=== PATIENT | female | born 1965 | race Caucasian/White ===

== ENCOUNTER → 2017-06-02 | Outpatient (CLI) | payer OTHER ==
--- NOTE | 2017-06-02 08:25 | Diagnostic Imaging Report ---
PROCEDURE:US ABDOMEN LIMITED COMPARISON:None. INDICATIONS:Abnormality of red blood cells. TECHNIQUE: Mcdonald scale color Doppler ultrasound. FINDINGS: Right liver span 15.6 cm. Diffusely increased and coarsened echotexture with a smooth margin. Portal vein diameter 1 cm; normal flow direction. Spleen: 10.8 x 2.9 x 4.3 cm (71 mL). Normal-appearing. CONCLUSION: 1. Normal spleen. 2. Diffusely increased liver echogenicity most commonly secondary to steatosis. Dictated by: Ceasar Coy M.D. on 06/02/2017 at 8:33 Electronically approved by: Ceasar Coy M.D. on 06/02/2017 at 8:33
== END ==
LOC: US 07:28
PROVIDERS: ATTEND Family Medicine
DX: R71.8 Other abnormality of red blood cells (principal)
CPT/HCPCS: 76705

== ENCOUNTER 2018-01-01 21:18 | Observation (INO) | payer OTHER ==
[~2018-01-01] VITALS: Ht 162.6 cm; Wt 70.3 kg
[2018-01-01] MEDS ORDERED: SODIUM CHLORIDE 0.9% 1000ML 1,000 ML IV ONE (22:00)
[2018-01-02] VITALS (8 sets, daily range): BP systolic 135–181; BP diastolic 63–89
[2018-01-02] MEDS ORDERED: SODIUM CHLORIDE 0.9% 1000ML 1,000 ML IV STA
--- NOTE | 2018-01-02 00:47 | Diagnostic Imaging Report ---
CXR 1 [facility], 01/01/2018 12:00 AM Technique: CXR 1 [facility] Comparison: None available. Clinical history: Vomiting, diarrhea, confusion Findings: Normal cardiomediastinal silhouette for technique. Mild linear bibasilar opacities, likely atelectasis or scarring. No consolidation, effusion or pneumothorax. Impression: 1. Lines/Tubes: None 2. No acute abnormality. Signed by: Dr Beverley Ramirez MD on 01/02/2018 12:44 AM
--- NOTE | 2018-01-02 00:53 | Diagnostic Imaging Report ---
Images made available for interpretation on 01/02/2018 at 12:45 AM. EXAMINATION: Head CT HISTORY: Confusion, now nausea and vomiting COMPARISON: None. TECHNIQUE: Multidetector axial images were obtained without contrast from the foramen magnum to the vertex . The images were reconstructed using brain and bone algorithms. Thin section brain images were reformatted into coronal and sagittal planes. Image quality: Motion/streaking artifact from metallic earrings limits the evaluation of the skull base and posterior cranial fossa. Dose modulation, iterative reconstruction, and/or weight based adjustment of the mA/kV was utilized to reduce the radiation dose to as low as reasonably achievable. FINDINGS: Parenchyma: 1. No abnormal densities. 2. No mass or hemorrhage. No CT evidence of acute territorial vascular insult. Extra-axial spaces:No abnormal density. No extra-axial fluid collections Brain volume: Normal for age. Ventricles: No hydrocephalus or displacement. Arteries: No density suggestive of thrombus. Dural sinuses: No abnormal density. Extra-axial spaces: No abnormal density. Foramen magnum: No mass, Chiari malformation, or basilar invagination. Sella: No obvious mass. Paranasal/mastoid sinuses: Imaged portions unremarkable. Skull/Scalp: No lytic or blastic lesions. No fractures. IMPRESSION: Normal head CT. Signed by: Dr. Nadja Barrios M.D. on 01/02/2018 12:49 AM
[2018-01-02] MEDS ORDERED: ONDANSETRON HCL INJ 2 MG/ML VIAL IV PRN (01:15)
[2018-01-02] MEDS ORDERED: DEXTROSE 50% SYRINGE 50 ML IV PRN (01:15)
[2018-01-02] MEDS: SODIUM CHLORIDE 0.9% 1000ML 1,000 ML IV SCH ×4 (02:00→21:06)
[2018-01-02] MEDS: INSULIN REGULAR, HUMAN 100 UNIT/1 ML 3ML VIAL SQ SCH ×4 (11:30→20:36)
--- NOTE | 2018-01-02 20:24 | History and Physical ---
HISTORY OF PRESENT ILLNESS: This 52-year-old female comes in with nausea and vomiting. She has a history of diabetes mellitus, history of hypertension. She was in her usual state of health until a day prior to admission. The patient started to have intractable nausea and vomiting and the patient was feeling dehydrated and felt very weak and came to the emergency room. She was admitted for intractable nausea and vomiting. PAST MEDICAL HISTORY: History of diabetes mellitus, seen by her director of occupational therapy, ____, and also history of hypertension. HOME MEDICATIONS: Not known at this time. The patient is on insulin apparently and also blood pressure medicine. 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 PAST SURGICAL HISTORY: and appendectomy, otherwise normal. REVIEW OF SYSTEMS: Negative for chest pain. No shortness of breath. Positive for nausea and vomiting. No diarrhea. No constipation. No rectal bleeding. No hematochezia and no hematemesis. No diplopia. No blurry vision. SOCIAL HISTORY: No ETOH. No IV drug abuse. 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 PHYSICAL EXAMINATION VITAL SIGNS: Temperature 97.7, blood pressure 172/79. HEENT: Normocephalic, atraumatic. Pupils react to light and accommodation. CVS: S1 and S2 normal. Regular rate and rhythm. ABDOMEN: Nontender, nondistended. EXTREMITIES: No clubbing, no cyanosis, no edema. This patient also had confusion too because of nausea and vomiting. The patient's CT was done and showed normal head CT. Chest x-ray: Normal cardiomediastinal silhouette. LABORATORY DATA: Chemistry: Glucose 300. AST 300, ALT 140. Bicarb 23. Urine dip stick leukocyte negative, nitrite negative. CBC was normal. The patient also did blood cultures. Given one bolus of normal saline in the ER and started on normal saline at 100 mL per hour and was admitted to the hospital. The patient is feeling better now. Will continue with the fluids and also give her some diet. Will continue checking her labs. Will put her on some Reglan for her gastroparesis and will continue monitoring the patient. Further recommendations depending on clinical course. Will continue to monitor the patient. Job#: [id number]
[2018-01-02] MEDS: METOCLOPRAMIDE HCL 10 MG TAB PO SCH (20:36)
[2018-01-03] VITALS (7 sets, daily range): BP systolic 156–178; BP diastolic 79–88
[2018-01-03 05:20] LABS: BASOPHILS # (AUTO) 0.1 (0.0-0.1); BASOPHILS % 1.4 % (0.0-1.0); EOSINOPHILS # (AUTO) 0.1 (0.0-0.4); EOSINOPHILS % 1.6 % (0.0-6.0); HEMATOCRIT 40.6 % (34.2-44.1); HEMOGLOBIN 13.9 g/dL (12.0-16.0); LYMPHOCYTES # (AUTO) 1.2 (1.0-3.2); LYMPHOCYTES % 26.1 % (18.0-39.1); MEAN CORPUSCULAR HEMOGLOBIN 36.2 pg (28-32); MEAN CORPUSCULAR HGB CONC 34.2 g/dL (31-35); MEAN CORPUSCULAR VOLUME 105.7 fL (81-99); MONOCYTES # (AUTO) 0.4 (0.2-0.8); MONOCYTES % 9.8 % (4.4-11.3); NEUTROPHILS # (AUTO) 2.7 (2.1-6.9); NEUTROPHILS % 60.9 % (38.7-80.0); PLATELET COUNT 164 x10e3/uL (140-360); RED BLOOD COUNT 3.84 x10e6/uL (3.6-5.1); RED CELL DISTRIBUTION WIDTH 11.6 % (11.7-14.4)
[2018-01-03 05:41] LABS: ALANINE AMINOTRANSFERASE 107 IU/L (0-55); ALBUMIN 3.3 g/dL (3.5-5.0); ALBUMIN/GLOBULIN RATIO 1.1 (0.8-2.0); ALKALINE PHOSPHATASE 151 IU/L (40-150); ANION GAP 19.3 mmol/L (8-16); BLOOD UREA NITROGEN 6 mg/dL (7-26); BUN/CREATININE RATIO 10 (6-25); CALCIUM 9.3 mg/dL (8.4-10.2); CARBON DIOXIDE 18 mmol/L (22-29); CHLORIDE 102 mmol/L (98-107); EST GLOMERULAR FILTRATION RATE > 60 ML/MIN (60-); GLUCOSE 103 mg/dL (74-118); POTASSIUM 3.3 mmol/L (3.5-5.1); SODIUM 136 mmol/L (136-145)
[2018-01-03 07:00] LABS: BASOPHILS # (AUTO) 0.1 (0.0-0.1); EOSINOPHILS # (AUTO) 0.1 (0.0-0.4); EOSINOPHILS % 1.6 % (0.0-6.0); HEMATOCRIT 39.8 % (34.2-44.1); HEMOGLOBIN 13.9 g/dL (12.0-16.0); LYMPHOCYTES # (AUTO) 1.2 (1.0-3.2); LYMPHOCYTES % 24.8 % (18.0-39.1); MEAN CORPUSCULAR HEMOGLOBIN 36.8 pg (28-32); MEAN CORPUSCULAR HGB CONC 34.9 g/dL (31-35); MEAN CORPUSCULAR VOLUME 105.3 fL (81-99); MONOCYTES # (AUTO) 0.4 (0.2-0.8); MONOCYTES % 8.6 % (4.4-11.3); NEUTROPHILS # (AUTO) 3.2 (2.1-6.9); NEUTROPHILS % 63.8 % (38.7-80.0); PLATELET COUNT 159 x10e3/uL (140-360); RED BLOOD COUNT 3.78 x10e6/uL (3.6-5.1); RED CELL DISTRIBUTION WIDTH 11.6 % (11.7-14.4)
[2018-01-03] MEDS ORDERED: POTASSIUM CHLORIDE 20MEQ/100ML 200 ML IV ONE (07:00)
[2018-01-03] MEDS ORDERED: PIPER-TAZ 3.375 GM 50 ML IV ONE (07:30)
[2018-01-03] MEDS: INSULIN REGULAR, HUMAN 100 UNIT/1 ML 3ML VIAL SQ SCH ×4 (07:30→20:15)
[2018-01-03] MEDS ORDERED: LEVOFLOXACIN 500MG/D5W 100ML 100 ML IV SCH (07:45)
[2018-01-03] MEDS: METOCLOPRAMIDE HCL 10 MG TAB PO SCH ×4 (07:55→20:10)
[2018-01-03] MEDS: PANTOPRAZOLE SOD 40 MG TABEC PO SCH (07:55)
[2018-01-03] MEDS ORDERED: POTASSIUM CHLORIDE 10 MEQ TABCR PO NR (11:45)
[2018-01-03] MEDS ORDERED: METRONIDAZOLE 500MG/NS 100ML 100 ML IV SCH (12:00)
--- NOTE | 2018-01-03 12:06 | Diagnostic Imaging Report ---
EXAMINATION: CT of the abdomen and pelvis with contrast. TECHNIQUE: Spiral CT images of the abdomen and pelvis were performed from the lung bases to the lesser trochanters after the intravenous administration of 100 cc of Isovue 370 and the oral administration of water. Coronal and sagittal reformatted images were obtained. COMPARISON: None. CLINICAL HISTORY:ABDOMINAL ULTRASOUND 06/02/2017 DISCUSSION: ABDOMEN/PELVIS: LOWER THORAX:Multiple bilateral lower lobe, right middle lobe and lingular linear opacities, likely representing subsegmental atelectasis or scarring. Mild bilateral lower lobe atelectatic changes. HEPATOBILIARY: Liver size in the upper limit of normal. Moderate diffuse steatosis. No focal lesions. No intra or extrahepatic biliary ductal dilation. GALLBLADDER: Cholecystectomy clips. SPLEEN: No splenomegaly. PANCREAS: No focal masses or ductal dilatation. Marked diffuse pancreatic atrophy ADRENALS: No adrenal nodules. KIDNEYS/URETERS: No hydronephrosis, stones, or solid mass lesions. PELVIC ORGANS/BLADDER: Moderate to marked distention of the bladder. No wall thickening or focal lesions. No adnexal masses. PERITONEUM/RETROPERITONEUM: No free air or fluid. LYMPH NODES: No intra-abdominal, retroperitoneal, pelvic or inguinal lymphadenopathy. VESSELS: The celiac trunk,superior and inferior mesenteric and bilateral renal arteries are patent The portal, superior mesenteric and splenic veins are patent. GI TRACT: No bowel dilation or evidence of obstruction. No pericolonic inflammatory changes. Stomach is unremarkable. BONES AND SOFT TISSUE: Mild osteopenia. No aggressive lytic lesions. Fat-containing abdominal hernia. IMPRESSION: 1. Liver size in the upper limit of normal with moderate diffuse steatosis. No focal lesions. 2. Moderate to marked distention of the bladder. No focal lesions or wall thickening. Correlate for bladder outlet obstruction. 3. No bowel dilation or evidence of obstruction. 4. Bilateral lower lobe, right middle lobe and lingular subsegmental atelectasis or scarring. Signed by: Dr. Chandu Aguilar M.D. on 01/03/2018 12:03 PM
[2018-01-03] MEDS ORDERED: POTASSIUM CHLORIDE 20 MEQ TAB CR PO ONE (13:35)
[2018-01-03] MEDS ORDERED: SODIUM CHLORIDE 0.9% 50ML 50 ML ONE (16:22)
[2018-01-03] MEDS ORDERED: IOPAMIDOL 370 MG/ML 200 ML INFUS..BTL INJ ONE (16:22)
--- NOTE | 2018-01-03 19:12 | Diagnostic Imaging Report ---
EXAM: Complete Abdominal Ultrasound INDICATION: \S\ATTENTION GALL BLADDER COMPARISON: CT abdomen and pelvis 01/03/2018 TECHNIQUE: Transverse and longitudinal images of the upper abdomen were obtained. FINDINGS: Liver: Size: 14.0 cm in the right midclavicular line, normal Appearance: Increased echogenicity, smooth contour Mass: No focal masses Spleen: Size: 10.5 cm in length, normal Echogenicity: Normal Mass: No focal masses Gallbladder: Absent. Sonographic Robles's Sign: Negative Bile Ducts: Intrahepatic Ducts: No dilatation Extrahepatic Ducts: Common bile duct measures 0.6 cm, no dilatation Pancreas: Visualized portions of the neck and proximal body show atrophy. No focal lesions.. Kidneys: Length: Right 9.4 cm Left 10.4 cm Echogenicity: Normal Collecting System: No hydronephrosis Stone: None Cyst/Mass: None Vessels: Aorta: Visualized portions are normal Inferior Vena Cava: Visualized portions are normal Main Portal Vein: 1.0 cm, normal size with hepatopetal flow. Free Fluid: No ascites or pleural effusion IMPRESSION: 1. Diffuse hepatic steatosis. No focal lesions. 2. Pancreatic atrophy. No focal lesions. Signed by: Dr. Chandu Aguilar M.D. on 01/03/2018 7:09 PM
[2018-01-03] MEDS ORDERED: TEMAZEPAM 15 MG CAP PO ONE (21:00)
[2018-01-04 01:00] VITALS: BP 162/85
[2018-01-04 03:30] VITALS: BP 167/80
[2018-01-04 05:14] LABS: BASOPHILS % 1.1 % (0.0-1.0); EOSINOPHILS # (AUTO) 0.1 (0.0-0.4); EOSINOPHILS % 3.2 % (0.0-6.0); HEMATOCRIT 39.8 % (34.2-44.1); LYMPHOCYTES # (AUTO) 0.9 (1.0-3.2); LYMPHOCYTES % 24.8 % (18.0-39.1); MEAN CORPUSCULAR HEMOGLOBIN 36.6 pg (28-32); MEAN CORPUSCULAR HGB CONC 35.2 g/dL (31-35); MEAN CORPUSCULAR VOLUME 103.9 fL (81-99); MONOCYTES # (AUTO) 0.4 (0.2-0.8); MONOCYTES % 9.8 % (4.4-11.3); NEUTROPHILS # (AUTO) 2.3 (2.1-6.9); NEUTROPHILS % 60.8 % (38.7-80.0); PLATELET COUNT 148 x10e3/uL (140-360); RED BLOOD COUNT 3.83 x10e6/uL (3.6-5.1); RED CELL DISTRIBUTION WIDTH 11.7 % (11.7-14.4)
[2018-01-04 05:32] LABS: ANION GAP 20.9 mmol/L (8-16); BLOOD UREA NITROGEN 5 mg/dL (7-26); BUN/CREATININE RATIO 7 (6-25); CALCIUM 9.7 mg/dL (8.4-10.2); CARBON DIOXIDE 17 mmol/L (22-29); CHLORIDE 101 mmol/L (98-107); EST GLOMERULAR FILTRATION RATE > 60 ML/MIN (60-); GLUCOSE 247 mg/dL (74-118); POTASSIUM 3.9 mmol/L (3.5-5.1); SODIUM 135 mmol/L (136-145)
[2018-01-04] MEDS: METOCLOPRAMIDE HCL 10 MG TAB PO SCH (08:10)
[2018-01-04] MEDS: PANTOPRAZOLE SOD 40 MG TABEC PO SCH (08:10)
[2018-01-04] MEDS: INSULIN REGULAR, HUMAN 100 UNIT/1 ML 3ML VIAL SQ SCH (08:11)
[2018-01-04 08:13] VITALS: BP 176/88
[2018-01-04 08:34] VITALS: BP 176/88
[2018-01-04] MEDS ORDERED: REGLAN5 MG PO (08:44)
== END 2018-01-04 10:12 | disposition home or self-care (01) ==
LOC: FSED 21:18 → ERHOLD 01-02 01:05 → IMCU 01-02 12:16
PROVIDERS: ADMIT Family Medicine; ATTEND Family Medicine
DX: E86.0 Dehydration (principal); K31.84 Gastroparesis; E11.43 Type 2 diabetes mellitus with diabetic autonomic (poly)neuropathy; E11.65 Type 2 diabetes mellitus with hyperglycemia; I10 Essential (primary) hypertension; Z79.4 Long term (current) use of insulin; R94.5 Abnormal results of liver function studies
CPT/HCPCS: 36415 ×3; 70450; 71045; 74177; 76700; 80048; 80053 ×2; 80076; 81003; 82948 ×3; 83605; 85025 ×3; 87040; 87086; 93005; 99284; G0378 ×3; J1956; J3480; J7030 ×3; Q9967; S0164 ×2

== ENCOUNTER 2018-01-28 08:39 | Inpatient (IN) | payer OTHER ==
[~2018-01-28] VITALS: Ht 162.6 cm; Wt 69.9 kg
[~2018-01-28 08:39] MED LIST: REGLAN5 MG PO
[2018-01-28] MEDS ORDERED: PANTOPRAZOLE 40 MG 10ML VIAL IV STA (09:01)
[2018-01-28] MEDS ORDERED: SODIUM CHLORIDE 0.9% 1000ML 1,000 ML IV STA (09:01)
[2018-01-28] MEDS ORDERED: ONDANSETRON HCL INJ 2 MG/ML VIAL IV STA (09:01)
[2018-01-28 09:14] LABS: BASOPHILS # (AUTO) 0.1 (0.0-0.1); BASOPHILS % 1.2 % (0.0-1.0); EOSINOPHILS % 0.2 % (0.0-6.0); HEMATOCRIT 40.9 % (34.2-44.1); HEMOGLOBIN 14.7 g/dL (12.0-16.0); LYMPHOCYTES # (AUTO) 0.9 (1.0-3.2); LYMPHOCYTES % 18.3 % (18.0-39.1); MEAN CORPUSCULAR HEMOGLOBIN 36.5 pg (28-32); MEAN CORPUSCULAR HGB CONC 35.9 g/dL (31-35); MEAN CORPUSCULAR VOLUME 101.5 fL (81-99); MONOCYTES # (AUTO) 0.4 (0.2-0.8); MONOCYTES % 7.7 % (4.4-11.3); NEUTROPHILS # (AUTO) 3.7 (2.1-6.9); NEUTROPHILS % 72.2 % (38.7-80.0); PLATELET COUNT 180 x10e3/uL (140-360); RED BLOOD COUNT 4.03 x10e6/uL (3.6-5.1); RED CELL DISTRIBUTION WIDTH 12.4 % (11.7-14.4)
[2018-01-28] MEDS ORDERED: LORAZEPAM INJ 2 MG/ML VIAL IV ONE (09:15)
[2018-01-28 09:26] LABS: CLARITY,URINE SL CLOUDY (CLEAR); COLOR,URINE YELLOW (YELLOW)
[2018-01-28 09:27] LABS: BILIRUBIN,URINE NEGATIVE (NEGATIVE); KETONES,URINE 3+ (NEGATIVE); LEUKOCYTE ESTERASE ,URINE NEGATIVE (NEGATIVE); NITRITE,URINE NEGATIVE (NEGATIVE); PROTEIN,URINE DIPSTICK 1+ (NEGATIVE); URINE UROBILINOGEN 0.2 mg/dL (0.2 - 1)
[2018-01-28 09:38] LABS: BACTERIA,URINE MODERATE /HPF; EPITHELIAL CELLS,URINE FEW /LPF
[2018-01-28 09:45] LABS: ALANINE AMINOTRANSFERASE 87 IU/L (0-55); ALBUMIN/GLOBULIN RATIO 1.1 (0.8-2.0); ALKALINE PHOSPHATASE 194 IU/L (40-150); AMYLASE 26 U/L (25-125); ANION GAP 21.5 mmol/L (8-16); BLOOD UREA NITROGEN 8 mg/dL (7-26); BUN/CREATININE RATIO 12 (6-25); CALCIUM 10.2 mg/dL (8.4-10.2); CARBON DIOXIDE 23 mmol/L (22-29); CHLORIDE 99 mmol/L (98-107); CREATINE KINASE 25 IU/L (29-168); CREATININE, SERUM 0.68 mg/dL (0.57-1.11); EST GLOMERULAR FILTRATION RATE > 60 ML/MIN (60-); GLUCOSE 168 mg/dL (74-118); LIPASE 5 U/L (8-78); POTASSIUM 3.5 mmol/L (3.5-5.1); SODIUM 140 mmol/L (136-145)
--- NOTE | 2018-01-28 10:27 | Diagnostic Imaging Report ---
PROCEDURE: A single AP view of the chest. COMPARISON: Chest radiograph 01/01/18 INDICATIONS: NAUSEA/VOMITING. MID CHEST PAIN, RADIATES TO SHOULDER BLADES FINDINGS: Lines/tubes: Right basilar linear subsegmental atelectasis. Lungs: Mild cephalization of pulmonary vasculature, no kelli pulmonary edema. No evidence of pneumonia. Pleura: There is no pleural effusion or pneumothorax. Heart and mediastinum: The cardiomediastinal silhouette is unremarkable. Bones: No acute bony abnormality. IMPRESSION: Pulmonary venous congestion without evidence of pulmonary edema. Right basilar subsegmental atelectasis. Dictated by: HELENA HARRIS M.D. on 01/28/2018 at 10:35 Electronically approved by: HELENA HARRIS M.D. on 01/28/2018 at 10:35
[2018-01-28] MEDS ORDERED: ONDANSETRON HCL INJ 2 MG/ML VIAL IV PRN (11:00)
[2018-01-28] MEDS ORDERED: SODIUM CHLORIDE 0.9% 1000ML 1,000 ML ONE (11:04)
[2018-01-28] MEDS: SODIUM CHLORIDE 0.9% 1000ML 1,000 ML IV SCH ×2 (11:06→18:10)
[2018-01-28] MEDS ORDERED: METOCLOPRAMIDE HCL 10 MG/2ML VIAL IV SCH (11:30)
[2018-01-28] MEDS ORDERED: SYNTHROID25 MCG PO (11:52)
[2018-01-28] MEDS ORDERED: NOVOLOG100 UNIT/1 SC (11:52)
[2018-01-28] MEDS ORDERED: TRISEBA SC (11:52)
[2018-01-28] MEDS ORDERED: BYSTOLIC10 MG PO (11:52)
[2018-01-28] MEDS ORDERED: LISINOPRIL2.5 MG PO (11:52)
[2018-01-28] MEDS ORDERED: DEXTROSE 50% SYRINGE 50 ML IV PRN (12:15)
[2018-01-28] MEDS: NEBIVOLOL 10 MG TAB PO SCH (13:14)
[2018-01-28] MEDS: FAMOTIDINE 20 MG/2 ML VIAL IV SCH ×2 (13:14→21:48)
[2018-01-28] MEDS: LISINOPRIL 2.5 MG TAB PO SCH (13:14)
[2018-01-28 14:00] VITALS: BP 177/96
--- NOTE | 2018-01-28 14:54 | Diagnostic Imaging Report ---
Exam: Abdominal film Clinical History: Nausea, vomiting Comparison: None. DISCUSSION: Frontal view of the abdomen shows a nonobstructive bowel gas pattern with mild amount of retained stool. No dilated, air-filled loops of bowel. No abnormal calcifications. Right upper quadrant clips. No acute bone abnormality. IMPRESSION: 1. Nonobstructive bowel gas pattern. Signed by: Dr. Uvaldo Beasley M.D. on 01/28/2018 2:51 PM
[2018-01-28] MEDS: INSULIN LISPRO 100 UNIT/1 ML 3ML VIAL SQ SCH ×2 (15:39→21:00)
[2018-01-28 16:00] VITALS: BP 151/81
[2018-01-28] MEDS ORDERED: INSULIN REGULAR, HUMAN 100 UNIT/1 ML 3ML VIAL SQ SCH (16:30)
[2018-01-28 20:00] VITALS: BP 165/108
[2018-01-28] MEDS ORDERED: ACETAMINOPHEN 325 MG TAB PO PRN (21:30)
[2018-01-28] MEDS: DIPHENHYDRAMINE HCL 25 MG CAP PO PRN (21:48)
[2018-01-28 22:47] VITALS: BP 165/108
[2018-01-29] VITALS (8 sets, daily range): BP systolic 158–186; BP diastolic 86–93
[2018-01-29] MEDS: SODIUM CHLORIDE 0.9% 1000ML 1,000 ML IV SCH ×2 (03:00→11:03)
[2018-01-29 05:26] LABS: BASOPHILS % 1.5 % (0.0-1.0); EOSINOPHILS % 1.5 % (0.0-6.0); HEMATOCRIT 36.6 % (34.2-44.1); HEMOGLOBIN 12.8 g/dL (12.0-16.0); LYMPHOCYTES # (AUTO) 0.8 (1.0-3.2); LYMPHOCYTES % 27.9 % (18.0-39.1); MEAN CORPUSCULAR HEMOGLOBIN 36.5 pg (28-32); MEAN CORPUSCULAR VOLUME 104.3 fL (81-99); MONOCYTES # (AUTO) 0.2 (0.2-0.8); MONOCYTES % 7.7 % (4.4-11.3); NEUTROPHILS # (AUTO) 1.7 (2.1-6.9); PLATELET COUNT 148 x10e3/uL (140-360); RED BLOOD COUNT 3.51 x10e6/uL (3.6-5.1); RED CELL DISTRIBUTION WIDTH 12.9 % (11.7-14.4)
[2018-01-29 06:07] LABS: ALANINE AMINOTRANSFERASE 110 IU/L (0-55); ALBUMIN 3.3 g/dL (3.5-5.0); ALKALINE PHOSPHATASE 173 IU/L (40-150); BILIRUBIN,DIRECT 0.9 mg/dL (0.0-0.5); BLOOD UREA NITROGEN < 5 mg/dL (7-26); CALCIUM 9.2 mg/dL (8.4-10.2); CARBON DIOXIDE 24 mmol/L (22-29); CHLORIDE 101 mmol/L (98-107); CREATINE KINASE 21 IU/L (29-168); CREATININE, SERUM 0.61 mg/dL (0.57-1.11); EST GLOMERULAR FILTRATION RATE > 60 ML/MIN (60-); GLUCOSE 68 mg/dL (74-118); MAGNESIUM 1.4 MG/DL (1.3-2.1); SODIUM 137 mmol/L (136-145)
[2018-01-29 06:15] LABS: BUN/CREATININE RATIO 8 (6-25)
[2018-01-29] MEDS: LEVOTHYROXINE SODIUM 25 MCG TABLET PO SCH (06:15)
[2018-01-29] MEDS: METOPROLOL TARTRATE INJ 1 MG/ML VIAL IV PRN ×2 (06:22→20:32)
[2018-01-29 06:30] LABS: THYROID STIMULATING HORMONE 1.556 uIU/mL (0.350-4.940)
--- NOTE | 2018-01-29 06:39 | Diagnostic Imaging Report ---
EXAMINATION: CHEST SINGLE (PORTABLE) INDICATION: Right lower lobe infiltrate COMPARISON: 01/28/2018 FINDINGS: TUBES and LINES: None. LUNGS: Lungs are well inflated. Confluent opacity in the right perihilar and right lower lobe region associated with increasing interstitial opacities bilaterally PLEURA: No pleural effusion or pneumothorax. HEART AND MEDIASTINUM: Cardiac size is moderately enlarged. There are atherosclerotic calcifications within the aorta. BONES AND SOFT TISSUES: No acute osseous lesion. Soft tissues are unremarkable. UPPER ABDOMEN: No free air under the diaphragm. IMPRESSION: 1. Findings compatible with cardiogenic fluid overload/CHF. 2. Confluent opacity in the right perihilar and right lung base suspicious for developing pneumonia versus atelectasis. Follow-up until resolution recommended Signed by: Dr. Emerson Diaz M.D. on 01/29/2018 6:36 AM
[2018-01-29] MEDS: INSULIN LISPRO 100 UNIT/1 ML 3ML VIAL SQ SCH ×4 (07:30→22:10)
[2018-01-29] MEDS: LISINOPRIL 2.5 MG TAB PO SCH (08:27)
[2018-01-29] MEDS: FAMOTIDINE 20 MG/2 ML VIAL IV SCH ×2 (08:27→20:32)
[2018-01-29] MEDS: NEBIVOLOL 10 MG TAB PO SCH (08:27)
[2018-01-29] MEDS ORDERED: PANTOPRAZOLE SO40 MG PO (08:30)
[2018-01-29] MEDS ORDERED: SUCRALFATE1 GM PO (08:30)
[2018-01-29] MEDS ORDERED: LISINOPRIL 2.5 MG TAB PO SCH (09:00)
[2018-01-29] MEDS ORDERED: NEBIVOLOL 10 MG TAB PO SCH (09:00)
[2018-01-29] MEDS ORDERED: POTASSIUM CHLORIDE 20MEQ/15ML UDC PO STA (10:09)
[2018-01-29] MEDS ORDERED: LISINOPRIL10 MG PO (10:45)
[2018-01-29] MEDS ORDERED: LISINOPRIL 10 MG TAB PO ONE (11:15)
[2018-01-29] MEDS ORDERED: LISINOPRIL 2.5 MG TAB PO ONE (11:15)
[2018-01-29] MEDS ORDERED: MAGNESIUM SULFATE 2GM/50ML 50 ML IV ONE (12:15)
[2018-01-29] MEDS ORDERED: POTASSIUM CHLORIDE 20MEQ/15ML UDC PO NR (13:00)
[2018-01-29] MEDS ORDERED: LORAZEPAM INJ 2 MG/ML VIAL IV NR (13:15)
--- NOTE | 2018-01-29 15:07 | Diagnostic Imaging Report ---
EXAMINATION: MRI abdomen without contrast/MRCP. TECHNIQUE: Axial T1 in and out of phase, axial T2 fat-sat, coronal T2 with and without fat sat, axial DWI and ADC MR images of the abdomen were performed. No intravenous gadolinium was given. Heavily T2-weighted MRCP images including thick and thin slab ASSETT, and 3-D reconstructions. CLINICAL HISTORY: Abdominal pain, intractable vomiting, rule out retained gallstone, status post cholecystectomy COMPARISON: CT abdomen and pelvis 01/03/2018 FINDINGS: LACK OF GADOLINIUM DECREASES SENSITIVITY FOR DETECTION OF INTRA-ABDOMINAL PATHOLOGY. Exam limited by mild breathing motion artifact LOWER THORAX: Atelectatic changes in bilateral lower lobes. Trace right pleural effusion. LIVER: Liver is enlarged, measuring 16.2 cm in the right midclavicular line. Marked signal dropout of hepatic parenchyma on out of phase images, consistent with marked steatosis. No focal T2 hyperintense hepatic lesions. BILIARY: No intra or extrahepatic biliary ductal dilatation. Common bile duct measures approximately 0.6 cm at the barber hepatis and 0.4 cm at the pancreatic head. No intraluminal filling defects are identified. Status post cholecystectomy. PANCREAS: No mass or ductal dilatation. SPLEEN: No splenomegaly. ADRENALS: No nodules. KIDNEYS: No hydronephrosis or solid or cystic mass in the imaged portion of the kidneys. PERITONEUM / RETROPERITONEUM: No upper abdominal free fluid. LYMPH NODES: No upper abdominal lymphadenopathy. VESSELS: Normal flow voids are identified. BONES AND SOFT TISSUES: No abnormal bone marrow signal. No soft tissue abnormalities.. IMPRESSION: 1. No intra or extrahepatic biliary ductal dilation. No filling defects are noted in the CBD to suggest choledocholithiasis. 2. Hepatomegaly with marked diffuse fatty infiltration. No focal lesions noted in this noncontrast exam. Signed by: Dr. Chnadu Aguilar M.D. on 01/29/2018 3:04 PM
[2018-01-29] MEDS ORDERED: BYSTOLIC10 MG PO (17:00)
[2018-01-29] MEDS ORDERED: NEBIVOLOL 10 MG TAB PO ONE (17:00)
[2018-01-29] MEDS: DIPHENHYDRAMINE HCL 25 MG CAP PO PRN (22:09)
[2018-01-30] VITALS (8 sets, daily range): BP systolic 136–163; BP diastolic 70–101
[2018-01-30] MEDS: SODIUM CHLORIDE 0.9% 1000ML 1,000 ML IV SCH (01:12)
[2018-01-30 05:07] LABS: BASOPHILS % 0.7 % (0.0-1.0); EOSINOPHILS # (AUTO) 0.1 (0.0-0.4); EOSINOPHILS % 1.7 % (0.0-6.0); HEMATOCRIT 36.8 % (34.2-44.1); LYMPHOCYTES # (AUTO) 0.9 (1.0-3.2); MEAN CORPUSCULAR HEMOGLOBIN 36.9 pg (28-32); MEAN CORPUSCULAR HGB CONC 35.3 g/dL (31-35); MEAN CORPUSCULAR VOLUME 104.5 fL (81-99); MONOCYTES # (AUTO) 0.2 (0.2-0.8); MONOCYTES % 5.5 % (4.4-11.3); NEUTROPHILS # (AUTO) 2.9 (2.1-6.9); NEUTROPHILS % 69.9 % (38.7-80.0); PLATELET COUNT 151 x10e3/uL (140-360); RED BLOOD COUNT 3.52 x10e6/uL (3.6-5.1); RED CELL DISTRIBUTION WIDTH 12.5 % (11.7-14.4)
[2018-01-30 05:27] LABS: INR 0.96; PROTHROMBIN TIME 13.7 seconds (11.9-14.5)
[2018-01-30 05:47] LABS: ALANINE AMINOTRANSFERASE 90 IU/L (0-55); ALBUMIN 3.4 g/dL (3.5-5.0); ALKALINE PHOSPHATASE 169 IU/L (40-150); ANION GAP 22.3 mmol/L (8-16); BLOOD UREA NITROGEN < 5 mg/dL (7-26); CALCIUM 9.3 mg/dL (8.4-10.2); CARBON DIOXIDE 14 mmol/L (22-29); CHLORIDE 99 mmol/L (98-107); CREATININE, SERUM 0.75 mg/dL (0.57-1.11); EST GLOMERULAR FILTRATION RATE > 60 ML/MIN (60-); GLUCOSE 276 mg/dL (74-118); POTASSIUM 4.3 mmol/L (3.5-5.1); SODIUM 131 mmol/L (136-145)
[2018-01-30 05:49] LABS: BUN/CREATININE RATIO 7 (6-25)
[2018-01-30] MEDS: LEVOTHYROXINE SODIUM 25 MCG TABLET PO SCH (06:02)
[2018-01-30] MEDS: INSULIN LISPRO 100 UNIT/1 ML 3ML VIAL SQ SCH ×4 (07:30→21:00)
[2018-01-30] MEDS: FAMOTIDINE 20 MG/2 ML VIAL IV SCH ×2 (08:50→21:00)
[2018-01-30] MEDS ORDERED: LISINOPRIL 10 MG TAB PO SCH (09:00)
[2018-01-30] MEDS: LISINOPRIL 20 MG TAB PO SCH (09:18)
[2018-01-30] MEDS ORDERED: LACTATED RINGER'S 1,000 ML IV ONE ×2 (10:00→14:30)
[2018-01-30] MEDS: NEBIVOLOL 10 MG TAB PO SCH (12:42)
[2018-01-30] MEDS ORDERED: DIATRIZOATE MEGL/DIATRIZOA SOD 30 ML BTL PO ONE (15:24)
[2018-01-30] MEDS ORDERED: SODIUM CHLORIDE 0.9% 50ML 50 ML ONE (17:54)
[2018-01-30] MEDS ORDERED: IOPAMIDOL 370 MG/ML 200 ML INFUS..BTL INJ ONE (17:54)
--- NOTE | 2018-01-30 22:16 | Diagnostic Imaging Report ---
EXAM: CT Abdomen and Pelvis WITH contrast INDICATION: Abdominal pain, fever COMPARISON: None. TECHNIQUE: Abdomen and pelvis were scanned utilizing a multidetector helical scanner from the lung base to the pubic symphysis after administration of IV contrast. Coronal and sagittal reformations were obtained. Routine protocol was performed. Scan was performed when during portal venous phase. IV CONTRAST: 100 mL of Isovue-370 ORAL CONTRAST: Gastrografin RADIATION DOSE: Total DLP: 313.3 mGy*cm Estimated effective dose: (DLP x 0.015 x size factor) mSv COMPLICATIONS: None FINDINGS: LINES and TUBES: None. LOWER THORAX: Unremarkable HEPATOBILIARY: The liver is diffuse hypodense compared to the spleen, consistent with diffuse hepatic diffuse hepatic steatosis. No focal hepatic lesions. No biliary ductal dilation. GALLBLADDER: There are cholecystectomy clips. SPLEEN: No splenomegaly. PANCREAS: No focal masses or ductal dilatation. ADRENALS: No adrenal nodules KIDNEYS/URETERS: Kidneys enhance symmetrically. No hydronephrosis. No cystic or solid mass lesions. No stones. GI TRACT: There is mild thickening of the proximal ascending colon and sigmoid colon Appendix is normal. PELVIC ORGANS/BLADDER: Unremarkable. LYMPH NODES: No lymphadenopathy. VESSELS: There is mild atherosclerotic disease in the aorta and major arterial branches. PERITONEUM / RETROPERITONEUM: No free air or fluid. BONES: Unremarkable. SOFT TISSUES: Unremarkable. IMPRESSION: 1. Diffuse hepatic steatosis and hepatomegaly. 2. Questionable thickening of the proximal ascending colon and sigmoid colon may represent colitis in the appropriate clinical setting. Signed by: Dr. Emerson Diaz M.D. on 01/30/2018 10:12 PM
[2018-01-30] MEDS ORDERED: PANTOPRAZOLE 40 MG 10ML VIAL IV STA (23:01)
[2018-01-30] MEDS ORDERED: PANTOPRAZOL 40MG/SOD CHL 0.9% 50 ML IV ONE (23:31)
[2018-01-30] MEDS: PANTOPRAZOL 40MG/SOD CHL 0.9% 250 ML IV SCH (23:37)
[2018-01-30] MEDS: METOCLOPRAMIDE HCL 10 MG/2ML VIAL IV SCH (23:39)
[2018-01-31 04:00] VITALS: BP 161/82
[2018-01-31] MEDS ORDERED: PANTOPRAZOL 40MG/SOD CHL 0.9% 50 ML IV ONE (05:04)
[2018-01-31 05:33] LABS: BASOPHILS % 0.8 % (0.0-1.0); EOSINOPHILS # (AUTO) 0.1 (0.0-0.4); EOSINOPHILS % 1.9 % (0.0-6.0); HEMOGLOBIN 13.5 g/dL (12.0-16.0); LYMPHOCYTES # (AUTO) 0.8 (1.0-3.2); LYMPHOCYTES % 15.5 % (18.0-39.1); MEAN CORPUSCULAR HEMOGLOBIN 36.6 pg (28-32); MEAN CORPUSCULAR HGB CONC 34.6 g/dL (31-35); MEAN CORPUSCULAR VOLUME 105.7 fL (81-99); MONOCYTES # (AUTO) 0.3 (0.2-0.8); NEUTROPHILS # (AUTO) 3.9 (2.1-6.9); NEUTROPHILS % 75.6 % (38.7-80.0); PLATELET COUNT 155 x10e3/uL (140-360); RED BLOOD COUNT 3.69 x10e6/uL (3.6-5.1); RED CELL DISTRIBUTION WIDTH 12.8 % (11.7-14.4)
[2018-01-31 05:59] LABS: ALANINE AMINOTRANSFERASE 64 IU/L (0-55); ALBUMIN 3.3 g/dL (3.5-5.0); ALKALINE PHOSPHATASE 158 IU/L (40-150); ANION GAP 21.1 mmol/L (8-16); BILIRUBIN,DIRECT 0.9 mg/dL (0.0-0.5); BLOOD UREA NITROGEN 7 mg/dL (7-26); BUN/CREATININE RATIO 10 (6-25); CALCIUM 9.9 mg/dL (8.4-10.2); CARBON DIOXIDE 16 mmol/L (22-29); CHLORIDE 102 mmol/L (98-107); CREATININE, SERUM 0.73 mg/dL (0.57-1.11); EST GLOMERULAR FILTRATION RATE > 60 ML/MIN (60-); GLUCOSE 268 mg/dL (74-118); MAGNESIUM 1.5 MG/DL (1.3-2.1); POTASSIUM 4.1 mmol/L (3.5-5.1); SODIUM 135 mmol/L (136-145)
[2018-01-31] MEDS: LEVOTHYROXINE SODIUM 25 MCG TABLET PO SCH (06:00)
[2018-01-31] MEDS: METOCLOPRAMIDE HCL 10 MG/2ML VIAL IV SCH ×4 (06:00→23:55)
[2018-01-31] MEDS ORDERED: BISACODYL 5 MG TAB EC PO ONE ×3 (06:00→07:00)
[2018-01-31 07:05] VITALS: BP 163/83
[2018-01-31] MEDS: INSULIN LISPRO 100 UNIT/1 ML 3ML VIAL SQ SCH ×4 (07:30→20:44)
[2018-01-31] MEDS ORDERED: CITRATE OF MAGNESIA 300ML BOTTLE PO ONE ×2 (07:30→08:30)
[2018-01-31 07:55] VITALS: BP 163/83
[2018-01-31] MEDS: NEBIVOLOL 10 MG TAB PO SCH (09:25)
[2018-01-31] MEDS: LISINOPRIL 20 MG TAB PO SCH (09:25)
[2018-01-31 11:54] VITALS: BP 107/67
[2018-01-31] MEDS ORDERED: ETOMIDATE 2 MG/ML 10 ML INJ IV ONE (13:40)
[2018-01-31] MEDS ORDERED: SUCCINYLCHOLINE CHLORIDE 20 MG/ML 10ML VIAL ONE (13:40)
[2018-01-31] MEDS ORDERED: PROPOFOL IV EMULSION 10 MG/ML 20 ML VIAL ONE (13:47)
[2018-01-31] MEDS ORDERED: FENTANYL CITRATE/PF 100MCG/2 ML INJ ONE (13:53)
[2018-01-31] MEDS ORDERED: MIDAZOLAM HCL 2 MG/2 ML VIAL ONE (13:53)
[2018-01-31] MEDS ORDERED: LEVOFLOXACIN 500MG/D5W 100ML 100 ML IV SCH (15:15)
[2018-01-31 15:58] VITALS: BP 139/63
[2018-01-31] MEDS ORDERED: HYOSCYAMINE SULFATE 0.5 MG/ML INJ ONE (17:16)
--- NOTE | 2018-01-31 19:05 | Operative Report ---
DATE OF PROCEDURE: January 31, 2018 REFERRING PHYSICIAN: Dr. Miguel Omalley. PROCEDURE PERFORMED: Colonoscopy with polypectomy and biopsies. INDICATIONS FOR PROCEDURE: Diarrhea, colitis on CT scan. MEDICATION: Patient was done under MAC. Please see anesthesiologist's note. PROCEDURE: With the patient in left lateral decubitus position, a flexible fiberoptic Olympus colonoscope was inserted into the rectum with ease and advanced all the way to the cecum. Mucosa overlying the cecum grossly appeared to be within normal limits. The ileocecal valve was intubated and scope was advanced into the terminal ileum. Biopsies were obtained. There were some patchy erythema and low-grade to moderate edema noted pretty much in a patchy fashion throughout the colon and random biopsies were obtained. Three polyps were snared. One polyp was hot biopsied from the ascending colon. One polyp was hot biopsied from the descending colon. The scope was then retroflexed into the distal rectum and small internal hemorrhoids were noted, none of which was actively bleeding. The scope was then straightened out, was subsequently withdrawn after securing an adequate stool specimen that was sent for the appropriate stool studies. Patient tolerated the procedure well. IMPRESSION 1. Patchy mild colitis. Random biopsies obtained. 2. Ascending colon polyps x4, three snared and one hot biopsied. 3. Descending colon polyp, hot biopsied. 4. Internal hemorrhoids, none actively bleeding. PLAN: Follow up histology. Follow up stool studies. Initiate VSL #3 one p.o. daily and Bentyl 10 mg 1 p.o. t.i.d. Job#: [id number] SHARMIN cc:DR. MIGUEL OMALLEY
[2018-01-31] MEDS: LEVOFLOXACIN 500MG/D5W 100ML 100 ML IV SCH (19:13)
[2018-01-31] MEDS ORDERED: SODIUM CHLORIDE 0.9% 250ML 250 ML ONE ×2 (19:27→20:34)
[2018-01-31] MEDS: PANTOPRAZOL 40MG/SOD CHL 0.9% 250 ML IV SCH (19:45)
[2018-01-31 19:48] LABS: WBC,FECAL (FECAL LACTOFERRIN) NEGATIVE (NEGATIVE)
[2018-01-31 20:00] VITALS: BP 119/56
[2018-01-31] MEDS: DICYCLOMINE HCL 10 MG CAP PO SCH (20:43)
[2018-01-31] MEDS: METRONIDAZOLE 500MG/NS 100ML 100 ML IV SCH (21:13)
[2018-02-01] VITALS (53 sets, daily range): BP systolic 67–145; BP diastolic 38–76
[2018-02-01] MEDS: METRONIDAZOLE 500MG/NS 100ML 100 ML IV SCH ×3 (05:09→21:57)
[2018-02-01] MEDS: LEVOTHYROXINE SODIUM 25 MCG TABLET PO SCH (05:09)
[2018-02-01] MEDS: METOCLOPRAMIDE HCL 10 MG/2ML VIAL IV SCH ×3 (05:09→17:41)
[2018-02-01 06:19] LABS: BASOPHILS # (AUTO) 0.1 (0.0-0.1); BASOPHILS % 0.6 % (0.0-1.0); EOSINOPHILS % 0.2 % (0.0-6.0); HEMATOCRIT 44.6 % (34.2-44.1); HEMOGLOBIN 14.4 g/dL (12.0-16.0); LYMPHOCYTES # (AUTO) 1.9 (1.0-3.2); LYMPHOCYTES % 18.2 % (18.0-39.1); MEAN CORPUSCULAR HEMOGLOBIN 36.8 pg (28-32); MEAN CORPUSCULAR HGB CONC 32.3 g/dL (31-35); MEAN CORPUSCULAR VOLUME 114.1 fL (81-99); MONOCYTES # (AUTO) 0.7 (0.2-0.8); MONOCYTES % 6.4 % (4.4-11.3); NEUTROPHILS # (AUTO) 7.7 (2.1-6.9); NEUTROPHILS % 73.8 % (38.7-80.0); PLATELET COUNT 214 x10e3/uL (140-360); RED BLOOD COUNT 3.91 x10e6/uL (3.6-5.1); RED CELL DISTRIBUTION WIDTH 13.4 % (11.7-14.4)
[2018-02-01] MEDS ORDERED: LORAZEPAM INJ 2 MG/ML VIAL ONE (06:37)
[2018-02-01] MEDS ORDERED: LORAZEPAM INJ 2 MG/ML VIAL IV ONE (06:45)
[2018-02-01 06:48] LABS: ALBUMIN 3.8 g/dL (3.5-5.0); ANION GAP 23.4 mmol/L (8-16); BILIRUBIN,DIRECT 0.5 mg/dL (0.0-0.5); CALCIUM 10.7 mg/dL (8.4-10.2); CREATININE, SERUM 1.13 mg/dL (0.57-1.11); POTASSIUM 4.4 mmol/L (3.5-5.1)
--- NOTE | 2018-02-01 06:58 | Diagnostic Imaging Report ---
EXAMINATION: CHEST SINGLE (PORTABLE) INDICATION: Cough and phlegm COMPARISON: 01/29/2018 FINDINGS: TUBES and LINES: None. LUNGS: Lungs are well inflated. Lungs are clear. There is mild prominence of the central pulmonary vasculature, consistent with pulmonary venous congestion. PLEURA: No pleural effusion or pneumothorax. HEART AND MEDIASTINUM: Cardiac size is mildly enlarged. There are atherosclerotic calcifications within the aorta. BONES AND SOFT TISSUES: No acute osseous lesion. Soft tissues are unremarkable. UPPER ABDOMEN: No free air under the diaphragm. IMPRESSION: No acute intrathoracic abnormality Signed by: Dr. Emerson Diaz M.D. on 02/01/2018 6:55 AM
[2018-02-01] MEDS: INSULIN LISPRO 100 UNIT/1 ML 3ML VIAL SQ SCH ×2 (07:13→11:30)
[2018-02-01] MEDS: INSULIN REGULAR, HUMAN 3ML VL 100 UNIT in SODIUM CHLORIDE 0.9% 100 ML 99 ML IV SCH ×4 (07:45→12:19)
[2018-02-01] MEDS ORDERED: MIDAZOLAM HCL 2 MG/2 ML VIAL ONE ×2 (07:47→08:24)
[2018-02-01] MEDS ORDERED: SODIUM CHLORIDE 0.9% 100 ML ONE (07:51)
[2018-02-01] MEDS ORDERED: SODIUM CHLORIDE 0.9% 1000ML 2,000 ML ONE (07:51)
[2018-02-01] MEDS ORDERED: INSULIN REGULAR, HUMAN 100 UNIT/1 ML 3ML VIAL ONE (07:54)
[2018-02-01] MEDS: FENTANYL CITRATE INJ 2,000 MCG in SODIUM CHLORIDE 0.9% 250ML 210 ML IV SCH ×3 (08:30→11:20)
[2018-02-01] MEDS ORDERED: MIDAZOLAM HCL 2 MG/2 ML VIAL IV STA (08:31)
[2018-02-01] MEDS ORDERED: SODIUM CHLORIDE 0.9% 1000ML 1,000 ML IV NR (09:00)
[2018-02-01] MEDS ORDERED: SODIUM CHLORIDE 0.9% 1000ML 1,000 ML IV SCH ×2 (09:00→12:00)
[2018-02-01] MEDS: LISINOPRIL 20 MG TAB PO SCH (09:00)
[2018-02-01] MEDS: DICYCLOMINE HCL 10 MG CAP PO SCH ×3 (09:00→20:55)
--- NOTE | 2018-02-01 09:02 | Diagnostic Imaging Report ---
EXAMINATION: CHEST SINGLE (PORTABLE) INDICATION: Intubated. COMPARISON: Chest radiograph 02/01/18 at 529AM. FINDINGS: TUBES and LINES: Interval intubation, the ET tube terminates 4.3 cm above the james. LUNGS: Lungs are well inflated. Mild bilateral interstitial opacities. Linear subsegmental atelectasis at the right lung base. PLEURA: No pleural effusion or pneumothorax. HEART AND MEDIASTINUM: The cardiomediastinal silhouette is unchanged. BONES AND SOFT TISSUES: No acute osseous lesion. Soft tissues are unremarkable. UPPER ABDOMEN: No free air under the diaphragm. IMPRESSION: Interval intubation with ET tube in satisfactory position. No evidence of pneumothorax. Mild pulmonary interstitial opacities, which could represent interstitial edema. Signed by: Dr. Jonatan Rendon MD on 02/01/2018 8:59 AM
[2018-02-01] MEDS: LORAZEPAM INJ 2 MG/ML VIAL IV PRN (09:30)
[2018-02-01 09:58] LABS: ABG HCO3 3 mmol/L (23-28); ABG PCO2 20 mmHg (41-51); ABG PH 6.78 (7.31-7.41); ABG PO2 193 mmHg (80-105)
[2018-02-01] MEDS ORDERED: SODIUM BICARBONATE 8.4% INJ 50 ML SYR IV NR (10:00)
[2018-02-01 10:29] LABS: BLOOD UREA NITROGEN 12 mg/dL (7-26); GLUCOSE 351 mg/dL (74-118); OSMOLALITY,SERUM 289 mOsm/kg (278-305); SODIUM 138 mmol/L (136-145)
[2018-02-01] MEDS ORDERED: MIDAZOLAM HCL 25 MG in DEXTROSE 5% 50ML 45 ML IV PRN (10:30)
[2018-02-01 10:31] LABS: ANION GAP 21.2 mmol/L (8-16); CALCIUM 9.3 mg/dL (8.4-10.2); CREATININE, SERUM 1.23 mg/dL (0.57-1.11); MAGNESIUM 1.9 MG/DL (1.3-2.1); POTASSIUM 4.2 mmol/L (3.5-5.1)
[2018-02-01] MEDS ORDERED: MIDAZOLAM HCL 25 MG in SODIUM CHLORIDE 0.9% 50ML 45 ML IV PRN (11:00)
[2018-02-01 12:03] LABS: ABG HCO3 5 mmol/L (23-28); ABG PCO2 15 mmHg (41-51); ABG PH 7.16 (7.31-7.41); ABG PO2 68 mmHg (80-105)
[2018-02-01 12:21] LABS: CLARITY,URINE CLEAR (CLEAR); COLOR,URINE YELLOW (YELLOW); LEUKOCYTE ESTERASE ,URINE NEGATIVE (NEGATIVE); NITRITE,URINE NEGATIVE (NEGATIVE); PROTEIN,URINE DIPSTICK 2+ (NEGATIVE)
[2018-02-01 12:22] LABS: BILIRUBIN,URINE NEGATIVE (NEGATIVE); KETONES,URINE 3+ (NEGATIVE); URINE UROBILINOGEN 0.2 mg/dL (0.2 - 1)
[2018-02-01 12:32] LABS: AMORPHOUS SEDIMENT,URINE FEW (FEW); EPITHELIAL CELLS,URINE RARE /LPF; RBC,URINE 0-5 /HPF (0-5); WBC,URINE (MAN) 0-5 /HPF (0-5)
--- NOTE | 2018-02-01 14:14 | Consultation ---
DATE OF CONSULTATION: February 01, 2018 PULMONARY/CRITICAL CARE CONSULTATION REFERRING PHYSICIAN: Dr. Uvaldo Gonzalez. CHIEF COMPLAINT: Metabolic acidosis, elevated blood sugars, and respiratory failure. HISTORY OF PRESENT ILLNESS: Patient is a 52-year-old with type 1 diabetes since childhood. She sees Dr Jaki Hannah as an outpatient and takes a long-acting insulin daily at 17 units. She also takes a short-acting insulin before meals on an adjusted scale. She has experienced gastrointestinal problems over the past several years. Several years ago, she had an endoscopy done by Dr. Hunter that showed the hiatal hernia and some acid reflux. She subsequently went back to Dr. Hunter 2 weeks ago and had a repeat endoscopy because of worsening nausea and vomiting. The patient came into the hospital because of the intractable nausea and vomiting. She was dehydrated and unable to eat. She received some fluids as well as some as needed insulin. She was subsequently seen by GI who ordered a colonoscopy. This morning, she was noted to be more tachypneic and sleepy. Rapid response was called and she was intubated. Subsequent lab work showed an elevated blood sugar with an increasing anion gap. PAST MEDICAL HISTORY Type 1 diabetes. Gastroesophageal reflux with persistent cough and respiratory problems. Gastroparesis. PAST SURGICAL HISTORY 1. Status post hysterectomy. 2. Status post appendectomy. 3. Status post cholecystectomy. FAMILY HISTORY: Noncontributory. SOCIAL HISTORY: The patient has never been a smoker. She is a drinker sometimes. She drinks on the weekends at times. REVIEW OF SYSTEMS: She has no history of fever. There is no headache. She has no neck pain. She is not having any chest pain. She does not have dyspnea. She did have abdominal pain, nausea and vomiting with some diarrhea. She has no leg swelling or pain. PHYSICAL EXAMINATION VITAL SIGNS: The patient is afebrile. She is currently on a mechanical ventilator with an assist-control mode of ventilation. She is receiving normal saline at 200 mL an hour along with insulin at 10 units an hour. Her blood pressure is 83/43 and her heart rate is 100. Saturation is 99%. HEENT: Examination shows no facial swelling or erythema. Nasal mucosa is normal. The patient has an oral endotracheal tube in. NECK: Examination of her neck shows no JVD or thyromegaly. CARDIAC: Exam reveals a regular rate and rhythm with a normal S1 and S2. There are no murmurs or rubs. LUNGS: Auscultation of lungs reveals clear breath sounds bilaterally. There is no wheezing. ABDOMEN: Soft and nontender. There is no rebound or guarding. EXTREMITIES: Examination of the extremities shows no leg edema or calf tenderness. NEUROLOGIC: Shows no focal abnormalities. RADIOGRAPHIC DATA: Chest x-ray from this morning shows endotracheal tube in good position. There is some mild interstitial changes at the bases. LABORATORY DATA: White blood cell count is 10.4 with a hemoglobin of 14.4, and a platelet count of 214. Bicarbonate is 8 with a chloride of 113, and anion gap of 17. The BUN and creatinine ratio is 12:1.23 and the blood sugar is 351. The calcium is elevated at 10.7. The magnesium is normal. Urinalysis does show some ketones. IMPRESSION 1. Diabetic ketoacidosis. 2. Tachypnea and respiratory problems secondary to acidosis. 3. Acute kidney injury. 4. Diabetic gastroparesis with persistent nausea and vomiting. PLAN 1. Patient will receive aggressive IV hydration. 2. Patient will need to continue the IV insulin. 3. Monitor potassium and other electrolytes and replete as needed. 4. Consult endocrinology. 5. Once the DKA is stabilized, we should be able to extubate the patient. Job#: [id number] MARCO A
[2018-02-01] MEDS ORDERED: MULTIVITAMINS- 12 INJECTION 10 ML in SODIUM CHLORIDE 0.9% 1000ML 1,000 ML IV SCH (14:21)
[2018-02-01] MEDS ORDERED: THIAMINE HCL INJ 100 MG/ML 2ML VIAL IV ONE (14:30)
[2018-02-01 14:44] LABS: ABG HCO3 10 mmol/L (23-28); ABG PCO2 24 mmHg (41-51); ABG PH 7.26 (7.31-7.41); ABG PO2 191 mmHg (80-105)
[2018-02-01] MEDS ORDERED: THIAMINE HCL INJ 100 MG in SODIUM CHLORIDE 0.9% 50ML 50 ML IV ONE (14:45)
[2018-02-01 14:55] LABS: C DIFFICILE TOXIN A&B AMP PROB NEGATIVE (NEGATIVE)
[2018-02-01] MEDS ORDERED: EPINEPHRINE 2.25% INH NEBU SOL 0.5 ML VIAL INH NR (15:18)
[2018-02-01] MEDS ORDERED: INSULIN REGULAR, HUMAN 3ML VL 100 UNIT in SODIUM CHLORIDE 0.45% 100 ML 99 ML IV SCH ×2 (15:21)
[2018-02-01 15:28] LABS: ANION GAP 10.1 mmol/L (8-16); BLOOD UREA NITROGEN 13 mg/dL (7-26); BUN/CREATININE RATIO 14 (6-25); CARBON DIOXIDE 17 mmol/L (22-29); CHLORIDE 120 mmol/L (98-107); CREATININE, SERUM 0.93 mg/dL (0.57-1.11); EST GLOMERULAR FILTRATION RATE > 60 ML/MIN (60-); GLUCOSE 91 mg/dL (74-118); MAGNESIUM 1.3 MG/DL (1.3-2.1); POTASSIUM 3.1 mmol/L (3.5-5.1); SODIUM 144 mmol/L (136-145)
[2018-02-01] MEDS ORDERED: DEXTROSE 50% SYRINGE 50 ML IV PRN (15:30)
[2018-02-01] MEDS: MULTIVITAMINS IV SCH (15:45)
[2018-02-01] MEDS: FOLIC ACID IV SCH (15:45)
[2018-02-01] MEDS: [UNRECOGNIZED DRUG - OTHER] IV SCH (15:45)
[2018-02-01] MEDS: SODIUM CHLORIDE 0.9% 1000ML 1,000 ML IV SCH ×2 (15:46→21:57)
[2018-02-01 16:09] LABS: FREE T4 (FREE THYROXINE) 1.19 ng/dL (0.9-1.8); THYROID STIMULATING HORMONE 0.681 uIU/mL (0.350-4.940)
[2018-02-01] MEDS ORDERED: POTASSIUM CHLORIDE 20MEQ/100ML 100 ML IV ONE (16:45)
[2018-02-01] MEDS ORDERED: MAGNESIUM SULFATE 2GM/50ML 50 ML IV ONE (16:45)
--- NOTE | 2018-02-01 17:02 | Diagnostic Imaging Report ---
EXAMINATION: CHEST XRAY LINE PLACEMENT INDICATION: Right arm PICC. COMPARISON: Chest radiograph 02/01/2018. FINDINGS: TUBES and LINES: Interval extubation. Interval placement of right sided PICC with tip terminating near the cavoatrial junction. LUNGS AND PLEURA: Bilateral perihilar and interstitial opacities are increased from the prior radiograph. There is linear subsegmental atelectasis at the right lung base. HEART AND MEDIASTINUM: The cardiomediastinal silhouette is unchanged. BONES AND SOFT TISSUES: No acute osseous lesion. Soft tissues are unremarkable. UPPER ABDOMEN: No free air under the diaphragm. IMPRESSION: Interval extubation. Interval placement of right sided PICC with tip terminating near the cavoatrial junction. No evidence of pneumothorax. Increasing mild pulmonary interstitial edema. Signed by: Dr. Jonatan Rendon MD on 02/01/2018 4:59 PM
[2018-02-01] MEDS ORDERED: SODIUM CHLORIDE 0.9% 1000ML 1,000 ML ONE (20:30)
[2018-02-01] MEDS: LEVOFLOXACIN 500MG/D5W 100ML 100 ML IV SCH (20:54)
[2018-02-01] MEDS: HEPARIN SOD (PORCINE) 5,000 UNIT/ML VIAL SC SCH (20:58)
[2018-02-01] MEDS: PANTOPRAZOL 40MG/SOD CHL 0.9% 250 ML IV SCH (23:12)
[2018-02-02] VITALS (43 sets, daily range): BP systolic 110–185; BP diastolic 58–107
[2018-02-02] MEDS: METOCLOPRAMIDE HCL 10 MG/2ML VIAL IV SCH ×5 (00:13→23:57)
[2018-02-02] MEDS ORDERED: CEPACOL SORE THROAT LOZENGES PO ONE (02:33)
--- NOTE | 2018-02-02 02:36 | Consultation ---
DATE OF CONSULTATION: February 01, 2018 ENDOCRINE CONSULTATION Thank you very much for referring this patient. This is a patient of Dr. Zepeda and Dr. Mesa. This is a 52-year-old white female who is referred to me for evaluation of uncontrolled diabetes mellitus and diabetic ketoacidosis. The patient reportedly is a known diabetic for almost 40 years. She has multiple complications from diabetes including diabetic sensorimotor neuropathy. This time the patient came to the hospital because of nausea and increased sputum. During the hospital stay, she also has a history of gastroparesis. During the hospital stay, her blood sugars were fluctuating. About 24 hours back, her blood sugars started going to 300 to 400 range and the patient went into ketoacidosis. Blood sugar was 482 and anion gap was 23.4. At home, the patient takes a combination off long-acting insulin Lantus about 17 at bedtime and Humalog depending upon the meal about 4 to 8 units with each meal. The patient also has history of hypertension. The patient also had to be intubated because of respiratory issues. PHYSICAL EXAMINATION: GENERAL: Today, the patient is awake, arousable. VITAL SIGNS: Her heart rate is around 70. Blood pressure is 100/70 mmHg. HEENT: Essentially unremarkable. Thyroid is palpable. Clinically, she is near euthyroid. CHEST: Bilateral vesicular breathing. She has mild bronchospasm. CARDIAC: Both 1st and 2nd heart sounds. There is no 3rd or 4th heart sound. Ejection sound grade 2/6. The patient has also bilateral bronchospasm and basilar rales. CLINICAL IMPRESSION: 1. Diabetes mellitus type 1 uncontrolled with complications. 2. Diabetic ketoacidosis. 3. Gastroparesis. 4. Hypertension. 5. Rule out pneumonia. 6. Slight fluid overload. The plan at this time is to the patient has been started on insulin drip. We will do a hemoglobin A1c thyroid function test, monitor her blood sugars closely and adjust insulin dose. I have discussed the condition in detail with Dr. Zepeda as well as the patient's . Thank you very much for referring this patient. Job#: [id number] MEGAN
[2018-02-02] MEDS: LORAZEPAM INJ 2 MG/ML VIAL IV PRN ×2 (02:39→08:45)
[2018-02-02] MEDS ORDERED: SODIUM CHLORIDE 0.9% 1000ML 1,000 ML ONE (04:48)
[2018-02-02 05:05] LABS: BASOPHILS % 0.2 % (0.0-1.0); EOSINOPHILS % 0.2 % (0.0-6.0); HEMATOCRIT 31.7 % (34.2-44.1); HEMOGLOBIN 10.7 g/dL (12.0-16.0); LYMPHOCYTES # (AUTO) 0.7 (1.0-3.2); LYMPHOCYTES % 12.3 % (18.0-39.1); MEAN CORPUSCULAR HEMOGLOBIN 37.4 pg (28-32); MEAN CORPUSCULAR HGB CONC 33.8 g/dL (31-35); MEAN CORPUSCULAR VOLUME 110.8 fL (81-99); MONOCYTES # (AUTO) 0.6 (0.2-0.8); MONOCYTES % 11.2 % (4.4-11.3); NEUTROPHILS # (AUTO) 4.3 (2.1-6.9); NEUTROPHILS % 75.7 % (38.7-80.0); PLATELET COUNT 130 x10e3/uL (140-360); RED BLOOD COUNT 2.86 x10e6/uL (3.6-5.1); RED CELL DISTRIBUTION WIDTH 13.4 % (11.7-14.4)
[2018-02-02 05:37] LABS: ANION GAP 12.4 mmol/L (8-16); CALCIUM 8.8 mg/dL (8.4-10.2); CREATININE, SERUM 0.98 mg/dL (0.57-1.11); POTASSIUM 3.4 mmol/L (3.5-5.1)
[2018-02-02] MEDS: LEVOTHYROXINE SODIUM 25 MCG TABLET PO SCH (06:10)
[2018-02-02] MEDS: METRONIDAZOLE 500MG/NS 100ML 100 ML IV SCH ×3 (06:10→22:33)
[2018-02-02] MEDS: SODIUM CHLORIDE 0.9% 1000ML 1,000 ML IV SCH (06:10)
[2018-02-02 06:48] LABS: FOLATE 18.5 ng/mL (7.0-15.4)
--- NOTE | 2018-02-02 07:07 | Diagnostic Imaging Report ---
PROCEDURE: CHEST SINGLE (PORTABLE) COMPARISON: 02/01/2018. INDICATIONS: SOB FINDINGS: Right upper extremity PICC is stable in position. The lungs remain adequately inflated. No new consolidation or pleural effusion. Stable cardiomediastinal contour with prominence of the perihilar interstitium. No acute osseous abnormality. CONCLUSION: Right upper extremity PICC is unchanged in position. Stable interstitial pulmonary edema relative to 02/01/2018. No new airspace consolidation. Improved subsegmental atelectasis in the right lung base. Dictated by: Aj Hernandez M.D. on 02/02/2018 at 7:15 Electronically approved by: Aj Hernandez M.D. on 02/02/2018 at 7:15
[2018-02-02] MEDS ORDERED: POTASSIUM CHLORIDE 20MEQ/100ML 100 ML IV ONE (08:00)
[2018-02-02] MEDS: DICYCLOMINE HCL 10 MG CAP PO SCH ×3 (08:31→21:32)
[2018-02-02] MEDS: HEPARIN SOD (PORCINE) 5,000 UNIT/ML VIAL SC SCH (08:58)
[2018-02-02] MEDS ORDERED: NEBIVOLOL 10 MG TAB PO SCH (09:00)
[2018-02-02] MEDS ORDERED: ALBUTEROL SULF 0.083% NEB SOLN 3 ML NEB NEB PRN (10:00)
[2018-02-02] MEDS: FOLIC ACID IV SCH (10:25)
[2018-02-02] MEDS: [UNRECOGNIZED DRUG - OTHER] IV SCH (10:25)
[2018-02-02] MEDS: ALBUTEROL SULF 0.083% NEB SOLN 3 ML NEB NEB PRN (10:25)
[2018-02-02] MEDS: MULTIVITAMINS IV SCH (10:25)
[2018-02-02 10:28] LABS: ABG HCO3 7 mmol/L (23-28); ABG PCO2 16 mmHg (41-51); ABG PH 7.26 (7.31-7.41); ABG PO2 102 mmHg (80-105)
[2018-02-02] MEDS ORDERED: DEXTROSE 5%/0.45% SOD CHL 1,000 ML IV SCH (10:30)
[2018-02-02] MEDS: PANTOPRAZOL 40MG/SOD CHL 0.9% 50 ML IV SCH ×3 (12:02→21:31)
[2018-02-02] MEDS: D5.45%NS/KCL 20MEQ 1,000 ML IV SCH ×2 (14:25→23:58)
--- NOTE | 2018-02-02 15:24 | Progress Note ---
DATE: 02/02/2018 PULMONARY/CRITICAL CARE PROGRESS NOTE SUBJECTIVE: The patient remained on an insulin drip yesterday and received additional fluids. She was extubated. This morning she had more tachypnea and some noisy breathing. She also had a worsening metabolic acidosis on her ABG with a bicarb of 15. Her insulin drip was subsequently increased, and she received bronchodilators. OBJECTIVE VITAL SIGNS: The blood pressure is 135/72, and the saturation is 99% on 3 liters. HEENT: Examination shows no facial swelling or erythema. There are some audible upper airway noises. CARDIAC: Exam reveals a regular rate and rhythm with a normal S1 and S2. LUNGS: Auscultation reveals rhonchorous breath sounds and wheezing bilaterally. ABDOMEN: Soft and nontender. There is no rebound or guarding. EXTREMITIES: Examination shows no leg edema or calf tenderness. LABORATORY DATA: The white blood cell count is 5.6, and the hemoglobin is 10.7. The MCV is 110. Platelet count is 130. Blood sugars are in the 150 to 200 range. The serum bicarbonate is 15 with a chloride of 115. IMPRESSION 1. Diabetic ketoacidosis. 2. Nonanion gap metabolic acidosis secondary to hyperchloremia. 3. Gastroparesis. 4. Severe gastroesophageal reflux. 5. Wheezing and bronchospasm. 6. Macrocytic anemia. PLAN 1. Patient will be continued on the insulin drip. 2. She has been switched to half-normal saline. 3. Repeat electrolytes are pending. 4. Continue bronchodilators. 5. Patient should be sitting upright as much as possible to avoid any worsening acid reflux. Continue Protonix and H2 blockers. 6. ENT evaluation is pending. 7. Swallowing evaluation is pending. Greater than 35 minutes in direct critical care time during 2 separate visits, one at 10 a.m. and one at 2:30 p.m. Job#: [id number] EV MTDSebastian
[2018-02-02 18:50] LABS: BLOOD UREA NITROGEN 7 mg/dL (7-26); BUN/CREATININE RATIO 8 (6-25); CALCIUM 10.6 mg/dL (8.4-10.2); CHLORIDE 113 mmol/L (98-107); CREATININE, SERUM 0.86 mg/dL (0.57-1.11); EST GLOMERULAR FILTRATION RATE > 60 ML/MIN (60-); GLUCOSE 150 mg/dL (74-118); POTASSIUM 3.1 mmol/L (3.5-5.1); SODIUM 139 mmol/L (136-145)
[2018-02-02 19:04] LABS: MAGNESIUM 1.7 MG/DL (1.3-2.1)
[2018-02-02] MEDS: LEVOFLOXACIN 500MG/D5W 100ML 100 ML IV SCH (20:31)
[2018-02-02 21:26] LABS: ANION GAP 9.1 mmol/L (8-16); CARBON DIOXIDE 20 mmol/L (22-29)
[2018-02-02] MEDS: NEOMYCIN/POLYMYXIN/BACITRACIN 15 GM TUBE TOP SCH (21:31)
[2018-02-02] MEDS: SALINE 0.65% NAS SOLN 1 SPRAY BTL SCH (22:33)
[2018-02-03] VITALS (43 sets, daily range): BP systolic 134–192; BP diastolic 64–105
--- NOTE | 2018-02-03 00:28 | Consultation ---
DATE OF CONSULTATION: February 02, 2018 HOSPITAL CONSULTATION HISTORY OF PRESENT ILLNESS: I was kindly asked to see this 52-year-old woman for evaluation of "stridor." The patient has a history of loud breathing which has been present by the patient's history for approximately 2 days. She reports a lifelong history of excessive mucus in her throat. She reports nasal airway congestion as well as excessive mucus down the back of her throat. She has frequent throat clearing and a foreign body sensation in her throat. SHE HAS BEEN WORKED UP IN THE PAST FOR INHALER ALLERGIES AND FOUND TO HAVE DUST MITE ALLERGIES AND OTHER INHALER ALLERGIES, however, immunotherapy was not recommended. She has used topical nasal steroids with only minimal improvement. HISTORY OF PRESENT ILLNESS, PAST MEDICAL HISTORY, AND PAST SURGICAL HISTORY: Reviewed in detail in the chart. PHYSICAL EXAMINATION: The tympanic membranes and external auditory canals were normal. There was crusting in the anterior nasal cavity bilaterally. She had a moderate nasal septal deviation towards the right side. Oral cavity examination showed mild candidiasis at the dorsum of the tongue. She had moderate postnasal drainage on fiberoptic rhinoscopy. There was minimal thick mucus within the nasal cavity. There was no active infection noted within the paranasal sinuses. The mild nasal septal deviation did not compress the opening of the sinus on the right side. The nasopharynx was unremarkable. On fiberoptic laryngoscopy, she had normal vocal cord motion. There was slight bowing of both vocal cords. She has edema and erythema of the posterior commissure of the larynx. Both vocal cords were mobile. There were no masses. The laryngeal inlet was of normal size. There was no stridor noted. ASSESSMENT: 1. No evidence of upper airway obstruction. 2. Chronic allergic rhinosinusitis. 3. Nasal septal deviation. 4. Laryngopharyngeal reflux. PLAN: 1. Addition of heated humidification to oxygen supply. 2. Sunflower Nasal [place] 2 puffs to each side of nose q.4h. while awake. 3. Bacitracin ointment to each nostril t.i.d. for 3 days. Thank you very much. Job#: [id number] DR FISHMAN
[2018-02-03] MEDS: PANTOPRAZOL 40MG/SOD CHL 0.9% 50 ML IV SCH ×5 (02:35→20:44)
[2018-02-03] MEDS: ACETAMINOPHEN 325 MG TAB PO PRN ×2 (02:44→23:30)
[2018-02-03] MEDS: LORAZEPAM INJ 2 MG/ML VIAL IV PRN (04:54)
--- NOTE | 2018-02-03 05:30 | Diagnostic Imaging Report ---
EXAM: CHEST SINGLE (PORTABLE), AP 1 view INDICATION: Stridor COMPARISON: AP view of the chest February 01, 2018 FINDINGS: LINES/TUBES: Stable position right approach PICC. LUNGS: Interval increase in pulmonary edema. PLEURA: No effusions or pneumothorax. HEART AND MEDIASTINUM: Stable appearance. BONES AND SOFT TISSUES: No acute findings. IMPRESSION: Interval increase in pulmonary edema. Signed by: Dr. Alicia Vines M.D. on 02/03/2018 5:27 AM
[2018-02-03] MEDS: METOCLOPRAMIDE HCL 10 MG/2ML VIAL IV SCH ×3 (06:20→18:36)
[2018-02-03] MEDS: METRONIDAZOLE 500MG/NS 100ML 100 ML IV SCH ×3 (06:20→20:44)
[2018-02-03] MEDS: SALINE 0.65% NAS SOLN 1 SPRAY BTL SCH ×5 (06:20→20:44)
[2018-02-03] MEDS: FOLIC ACID IV SCH (06:21)
[2018-02-03] MEDS: MULTIVITAMINS IV SCH (06:21)
[2018-02-03] MEDS: [UNRECOGNIZED DRUG - OTHER] IV SCH (06:21)
[2018-02-03] MEDS: LEVOTHYROXINE SODIUM 25 MCG TABLET PO SCH (06:30)
[2018-02-03 08:27] LABS: ALANINE AMINOTRANSFERASE 32 IU/L (0-55); ALBUMIN 2.7 g/dL (3.5-5.0); ALBUMIN/GLOBULIN RATIO 1.1 (0.8-2.0); ALKALINE PHOSPHATASE 113 IU/L (40-150); ANION GAP 20.6 mmol/L (8-16); BLOOD UREA NITROGEN < 5 mg/dL (7-26); CARBON DIOXIDE 11 mmol/L (22-29); CHLORIDE 107 mmol/L (98-107); CREATININE, SERUM 0.75 mg/dL (0.57-1.11); EST GLOMERULAR FILTRATION RATE > 60 ML/MIN (60-); GLUCOSE 210 mg/dL (74-118); SODIUM 136 mmol/L (136-145)
[2018-02-03 08:28] LABS: BUN/CREATININE RATIO 7 (6-25)
[2018-02-03 08:30] LABS: POTASSIUM 2.6 mmol/L (3.5-5.1)
[2018-02-03 08:31] LABS: CALCIUM 8.2 mg/dL (8.4-10.2)
[2018-02-03] MEDS ORDERED: POTASSIUM CHLORIDE 20 MEQ TAB CR PO STA ×2 (08:56→17:51)
[2018-02-03] MEDS: DICYCLOMINE HCL 10 MG CAP PO SCH ×3 (09:00→20:44)
[2018-02-03] MEDS ORDERED: NEBIVOLOL 10 MG TAB PO SCH (09:00)
[2018-02-03] MEDS ORDERED: POTASSIUM CHLORIDE 20MEQ/100ML 200 ML IV ONE ×2 (09:45→16:00)
[2018-02-03] MEDS ORDERED: ENALAPRILAT DIHYDRATE 1.25 MG/ML 2ML VIAL IV ONE (09:45)
[2018-02-03 09:53] LABS: FERRITIN 390.9 ng/mL (4.63-204.00)
[2018-02-03 10:57] LABS: FOLATE 31.9 ng/mL (7.0-15.4)
[2018-02-03] MEDS ORDERED: POTASSIUM CHLORIDE 20 MEQ TAB CR PO ONE (11:00)
[2018-02-03] MEDS ORDERED: POTASSIUM CHLORIDE 20 MEQ TAB CR PO SCH (11:00)
[2018-02-03] MEDS: NEOMYCIN/POLYMYXIN/BACITRACIN 15 GM TUBE TOP SCH (11:16)
[2018-02-03] MEDS: D5.45%NS/KCL 20MEQ 1,000 ML IV SCH ×2 (12:08→20:44)
--- NOTE | 2018-02-03 13:15 | Diagnostic Imaging Report ---
EXAM: MODIFIED BA. SWALLOW DATE: 02/03/2018 INDICATION: Cough. Stridor COMPARISON: None TECHNIQUE: The study was performed by the speech pathology service. Numerous consistencies of barium were given by mouth. Fluoroscopy was obtained. FLUORO TIME: 2 minutes 1 second Radiation Dose: 2.98 Gycm2 FINDINGS: The study was performed in conjunction with the speech pathology service. Please see speech pathology report for further details. IMPRESSION: Please see speech pathology report for further details. Signed by: Dr. Martín Stevens M.D. on 02/03/2018 1:11 PM
[2018-02-03] MEDS: LISINOPRIL 20 MG TAB PO SCH (14:15)
[2018-02-03] MEDS: NEBIVOLOL 10 MG TAB PO SCH (14:15)
[2018-02-03 15:12] LABS: ABG PH 7.49 (7.31-7.41)
[2018-02-03 15:13] LABS: ABG HCO3 22 mmol/L (23-28); ABG PCO2 29 mmHg (41-51); ABG PO2 83 mmHg (80-105)
[2018-02-03 15:39] LABS: ALANINE AMINOTRANSFERASE 31 IU/L (0-55); ALBUMIN 2.9 g/dL (3.5-5.0); ALBUMIN/GLOBULIN RATIO 1.1 (0.8-2.0); ALKALINE PHOSPHATASE 124 IU/L (40-150); ANION GAP 12.8 mmol/L (8-16); BLOOD UREA NITROGEN < 5 mg/dL (7-26); CALCIUM 9.2 mg/dL (8.4-10.2); CARBON DIOXIDE 21 mmol/L (22-29); CHLORIDE 108 mmol/L (98-107); CREATININE, SERUM 0.61 mg/dL (0.57-1.11); EST GLOMERULAR FILTRATION RATE > 60 ML/MIN (60-); GLUCOSE 120 mg/dL (74-118); SODIUM 139 mmol/L (136-145)
[2018-02-03 15:42] LABS: BUN/CREATININE RATIO 8 (6-25)
[2018-02-03 15:43] LABS: MAGNESIUM 1.1 MG/DL (1.3-2.1); POTASSIUM 2.8 mmol/L (3.5-5.1)
--- NOTE | 2018-02-03 16:02 | Progress Note ---
DATE: February 03, 2018 PULMONARY/CRITICAL CARE PROGRESS NOTE SUBJECTIVE: The patient had some increased congestion today. Her chest x-ray showed possible increased interstitial infiltrates. Swallowing evaluation was negative and showed no aspiration. The patient was also seen by ENT, who felt the gastroesophageal reflux was a large contributor to her noisy breathing. OBJECTIVE VITAL SIGNS: The blood pressure is 151/81, and the pulse is 98. The temperature is 99.4, and the respiratory rate is 18. She is 98% on 3 liters. HEENT: Examination shows no facial swelling or erythema. LUNGS: Auscultation of the lungs reveals rhonchorous breath sounds. CARDIAC: Exam reveals regular rate and rhythm with normal S1 and S2. ABDOMEN: Soft and nontender. There is no rebound or guarding. EXTREMITIES: There is no leg edema or calf tenderness. There is no cyanosis or clubbing. SKIN: No rashes. LABORATORY DATA: The bicarbonate is 11 this morning with chloride of 107 and anion gap of 19. The potassium is 2.6. Most recent blood gas is 7.49, 29, 83 and 22. IMPRESSION 1. Diabetic ketoacidosis. 2. Gastroparesis with severe gastroesophageal reflux. 3. Bronchospasm and coughing related to gastroesophageal reflux. 4. Fever. PLAN 1. Patient will be continued on the insulin drip. 1. We will cut back the IV fluids because of the worsening appearance on the chest x-ray. 2. The patient will have antireflux medications. 3. Elevate head of bed as much as possible. 4. Bronchodilators as needed. 5. Repeat cultures because of fever. 6. Continue current antibiotics. 7. Case discussed with Dr. Cruz of endocrinology and Dr. Zepeda as well as with nursing and respiratory. Greater than 35 minutes in direct critical care time. Job#: [id number]
[2018-02-03] MEDS ORDERED: MAGNESIUM SULFATE 2GM/50ML 50 ML IV ONE ×2 (18:00→20:00)
[2018-02-03] MEDS: ALBUTEROL SULF 0.083% NEB SOLN 3 ML NEB NEB PRN (19:30)
[2018-02-03] MEDS: LEVOFLOXACIN 500MG/D5W 100ML 100 ML IV SCH (20:44)
[2018-02-03] MEDS ORDERED: INSULIN DETEMIR 100 UNIT/ML PEN SQ NR (21:00)
[2018-02-04] VITALS (36 sets, daily range): BP systolic 106–169; BP diastolic 59–97
[2018-02-04] MEDS: METOCLOPRAMIDE HCL 10 MG/2ML VIAL IV SCH ×5 (00:09→23:34)
[2018-02-04] MEDS: FOLIC ACID IV SCH (02:44)
[2018-02-04] MEDS: [UNRECOGNIZED DRUG - OTHER] IV SCH (02:44)
[2018-02-04] MEDS: MULTIVITAMINS IV SCH (02:44)
[2018-02-04] MEDS: PANTOPRAZOL 40MG/SOD CHL 0.9% 50 ML IV SCH ×5 (03:33→23:29)
[2018-02-04] MEDS: ACETAMINOPHEN 325 MG TAB PO PRN ×2 (05:30→08:47)
[2018-02-04] MEDS: LEVOTHYROXINE SODIUM 25 MCG TABLET PO SCH (05:31)
[2018-02-04] MEDS: D5.45%NS/KCL 20MEQ 1,000 ML IV SCH (05:31)
[2018-02-04] MEDS: METRONIDAZOLE 500MG/NS 100ML 100 ML IV SCH ×3 (05:31→22:51)
[2018-02-04] MEDS: SALINE 0.65% NAS SOLN 1 SPRAY BTL SCH ×5 (05:31→22:04)
[2018-02-04 05:51] LABS: BASOPHILS % 0.7 % (0.0-1.0); EOSINOPHILS # (AUTO) 0.1 (0.0-0.4); EOSINOPHILS % 2.4 % (0.0-6.0); HEMATOCRIT 32.7 % (34.2-44.1); HEMOGLOBIN 11.5 g/dL (12.0-16.0); LYMPHOCYTES # (AUTO) 0.8 (1.0-3.2); LYMPHOCYTES % 25.3 % (18.0-39.1); MEAN CORPUSCULAR HEMOGLOBIN 36.2 pg (28-32); MEAN CORPUSCULAR HGB CONC 35.2 g/dL (31-35); MEAN CORPUSCULAR VOLUME 102.8 fL (81-99); MONOCYTES # (AUTO) 0.4 (0.2-0.8); MONOCYTES % 12.2 % (4.4-11.3); NEUTROPHILS # (AUTO) 1.8 (2.1-6.9); NEUTROPHILS % 59.1 % (38.7-80.0); PLATELET COUNT 145 x10e3/uL (140-360); RED BLOOD COUNT 3.18 x10e6/uL (3.6-5.1)
[2018-02-04 06:10] LABS: ALANINE AMINOTRANSFERASE 26 IU/L (0-55); ALBUMIN 2.8 g/dL (3.5-5.0); ALBUMIN/GLOBULIN RATIO 1.1 (0.8-2.0); ALKALINE PHOSPHATASE 116 IU/L (40-150); ANION GAP 13.8 mmol/L (8-16); CALCIUM 9.1 mg/dL (8.4-10.2); CARBON DIOXIDE 23 mmol/L (22-29); CHLORIDE 104 mmol/L (98-107); CREATININE, SERUM 0.58 mg/dL (0.57-1.11); GLUCOSE 111 mg/dL (74-118); SODIUM 138 mmol/L (136-145)
--- NOTE | 2018-02-04 06:37 | Diagnostic Imaging Report ---
EXAM: CHEST SINGLE (PORTABLE), AP 1 view INDICATION: Tachypnea COMPARISON: AP view of the chest February 01, 2018 FINDINGS: LINES/TUBES: Stable position of right approach PICC. LUNGS: Increasing edema. PLEURA: No effusions or pneumothorax. HEART AND MEDIASTINUM: Stable BONES AND SOFT TISSUES: No acute findings. IMPRESSION: Increasing edema Signed by: Dr. Alicia Vines M.D. on 02/04/2018 6:33 AM
[2018-02-04 06:49] LABS: BLOOD UREA NITROGEN < 2 mg/dL (7-26); BUN/CREATININE RATIO 3 (6-25)
[2018-02-04] MEDS: ALBUTEROL SULF 0.083% NEB SOLN 3 ML NEB NEB PRN ×2 (07:55→16:48)
[2018-02-04] MEDS ORDERED: LISINOPRIL 20 MG TAB PO SCH (09:00)
[2018-02-04] MEDS: NEBIVOLOL 10 MG TAB PO SCH (09:01)
[2018-02-04] MEDS: LISINOPRIL 20 MG TAB PO SCH (09:01)
[2018-02-04] MEDS: DICYCLOMINE HCL 10 MG CAP PO SCH ×3 (09:01→21:31)
[2018-02-04] MEDS ORDERED: POTASSIUM CHLORIDE 20 MEQ TAB CR PO STA (11:10)
[2018-02-04] MEDS ORDERED: MAGNESIUM SULFATE 2GM/50ML 50 ML IV ONE (14:15)
[2018-02-04] MEDS ORDERED: POTASSIUM CHLORIDE 20 MEQ TAB CR PO ONE (14:30)
[2018-02-04] MEDS ORDERED: INSULIN LISPRO 100 UNIT/1 ML 3ML VIAL SQ SCH (14:45)
[2018-02-04] MEDS: INSULIN LISPRO 100 UNIT/1 ML 3ML VIAL SQ SCH ×2 (16:52→21:32)
[2018-02-04] MEDS: LEVOFLOXACIN 500MG/D5W 100ML 100 ML IV SCH (21:31)
[2018-02-04] MEDS: INSULIN DETEMIR 100 UNIT/ML PEN SQ SCH (21:33)
[2018-02-05] VITALS (7 sets, daily range): BP systolic 134–184; BP diastolic 71–88
[2018-02-05] MEDS: METRONIDAZOLE 500MG/NS 100ML 100 ML IV SCH (04:48)
[2018-02-05] MEDS: METOCLOPRAMIDE HCL 10 MG/2ML VIAL IV SCH ×2 (04:48→11:52)
[2018-02-05] MEDS: SALINE 0.65% NAS SOLN 1 SPRAY BTL SCH ×4 (04:48→17:08)
[2018-02-05 05:08] LABS: BASOPHILS % 0.7 % (0.0-1.0); EOSINOPHILS # (AUTO) 0.1 (0.0-0.4); EOSINOPHILS % 3.4 % (0.0-6.0); HEMATOCRIT 31.5 % (34.2-44.1); HEMOGLOBIN 10.7 g/dL (12.0-16.0); LYMPHOCYTES # (AUTO) 0.7 (1.0-3.2); LYMPHOCYTES % 25.2 % (18.0-39.1); MEAN CORPUSCULAR HEMOGLOBIN 36.3 pg (28-32); MONOCYTES # (AUTO) 0.4 (0.2-0.8); MONOCYTES % 13.4 % (4.4-11.3); NEUTROPHILS # (AUTO) 1.7 (2.1-6.9); PLATELET COUNT 149 x10e3/uL (140-360); RED BLOOD COUNT 2.95 x10e6/uL (3.6-5.1); RED CELL DISTRIBUTION WIDTH 13.2 % (11.7-14.4)
[2018-02-05 05:10] LABS: MEAN CORPUSCULAR VOLUME 106.8 fL (81-99)
[2018-02-05 05:34] LABS: ALANINE AMINOTRANSFERASE 17 IU/L (0-55); ALBUMIN 2.7 g/dL (3.5-5.0); ALKALINE PHOSPHATASE 105 IU/L (40-150); ANION GAP 13.9 mmol/L (8-16); BLOOD UREA NITROGEN < 5 mg/dL (7-26); CALCIUM 8.7 mg/dL (8.4-10.2); CARBON DIOXIDE 23 mmol/L (22-29); CHLORIDE 102 mmol/L (98-107); CREATININE, SERUM 0.59 mg/dL (0.57-1.11); EST GLOMERULAR FILTRATION RATE > 60 ML/MIN (60-); GLUCOSE 200 mg/dL (74-118); SODIUM 136 mmol/L (136-145)
[2018-02-05 05:35] LABS: BUN/CREATININE RATIO 8 (6-25)
[2018-02-05 05:47] LABS: POTASSIUM 2.9 mmol/L (3.5-5.1)
[2018-02-05] MEDS ORDERED: POTASSIUM CHLORIDE 20MEQ/100ML 100 ML IV ONE (06:00)
[2018-02-05] MEDS: PANTOPRAZOL 40MG/SOD CHL 0.9% 50 ML IV SCH ×2 (06:30→09:22)
[2018-02-05] MEDS: LEVOTHYROXINE SODIUM 25 MCG TABLET PO SCH (07:09)
--- NOTE | 2018-02-05 07:42 | Diagnostic Imaging Report ---
EXAM: CHEST SINGLE (PORTABLE), AP 1 view INDICATION: Pulmonary edema. COMPARISON: Chest radiograph 02/04/18. FINDINGS: LINES/TUBES: Right sided PICC terminates at the cavoatrial junction. LUNGS: Similar appearance of moderate perihilar and interstitial opacity. No evidence of lobar consolidation. PLEURA: No effusions or pneumothorax. HEART AND MEDIASTINUM: Stable cardiomediastinal silhouette. BONES AND SOFT TISSUES: No acute findings. IMPRESSION: Persistent moderate pulmonary interstitial edema. Signed by: Dr. Jonatan Rendon MD on 02/05/2018 7:38 AM
[2018-02-05] MEDS: INSULIN LISPRO 100 UNIT/1 ML 3ML VIAL SQ SCH ×5 (08:25→21:00)
[2018-02-05] MEDS: DICYCLOMINE HCL 10 MG CAP PO SCH ×3 (09:21→21:11)
[2018-02-05] MEDS: INSULIN DETEMIR 100 UNIT/ML PEN SQ SCH ×2 (09:22→21:12)
[2018-02-05] MEDS: LISINOPRIL 20 MG TAB PO SCH (09:22)
[2018-02-05] MEDS: NEBIVOLOL 10 MG TAB PO SCH (09:22)
[2018-02-05] MEDS ORDERED: POTASSIUM CHLORIDE 20 MEQ TAB CR PO STA (13:08)
[2018-02-05] MEDS ORDERED: MAGNESIUM SULFATE 2GM/50ML 50 ML IV ONE (13:15)
[2018-02-05] MEDS ORDERED: NEOMYCIN/POLYMYXIN/BACITRACIN 15 GM TUBE TOP PRN (15:00)
--- NOTE | 2018-02-05 15:14 | Discharge Summary ---
PRIMARY CARE PHYSICIAN: Dr. Cam Sewell with [facility]. FINAL DIAGNOSIS: Intractable nausea and vomiting likely due to severe acid reflux. SECONDARY DIAGNOSES 1. Possible diabetic gastroparesis. 2. Hypertensive urgency. 3. Mild colitis on CAT scan. 4. Acute respiratory failure, resolved. 5. Diabetic ketoacidosis, resolved. CONSULTANTS: 1. Dr. Jordan, GI. 2. Dr. Barros, ENT. 3. Dr. Cruz, computer engineer. 4. Dr. Mesa, farmworker machine. PROCEDURES, STUDIES PERFORMED 1. Colonoscopy. 2. Modified barium swallow. 3. PICC line placement. 4. Abdominal CT. 5. MRCP. HISTORY: Per H\T\P. HOSPITAL COURSE: The patient presented with intractable nausea and vomiting. MRCP was done which was negative for retained stone. The patient initially had elevated LFTs. The etiology is still not completely clear. Initially, thought to be due to fatty liver; however, this has normalized, so, therefore, that is not the case, possibly might be some hypoperfusion. Acute hepatitis panel is negative. CT of the abdomen was done which showed mild colitis. The patient underwent a course of Levaquin and Flagyl. The patient was evaluated by GI. Colonoscopy was done, which showed patchy mild colitis and a couple of polyps. The patient will follow up with Dr. Jordan in 2 weeks. The patient also had a mild DKA while in the hospital likely due to withholding her insulin due to not tolerating p.o. The patient was briefly intubated for that and was extubated without any problem. There was some concern about stridor; however, ENT was consulted. Bedside fiberoptic laryngoscopy was done which showed laryngopharyngeal reflux. The patient was placed on Protonix drip. Currently, she is doing better. I will increase her Protonix to twice a day when she goes home. The patient was also put on IV Reglan while in the hospital. She is tolerating p.o. right now. She is stable for discharge, although she did have some diarrhea likely due to aggressive IV Reglan. I will replete her hypokalemia and hypomagnesia prior to discharge. The patient will follow up with her primary care physician in one week. The patient was seen and examined today. It took 35 minutes total to discharge this patient. CONDITION ON DISCHARGE: Stable. DISCHARGE MEDICATIONS: Please see medication reconciliation form. Job#: [id number] cc:CAM SEWELL MD
[2018-02-05] MEDS ORDERED: POTASSIUM CHLORIDE 20 MEQ TAB CR PO ONE (15:15)
[2018-02-05] MEDS: PANTOPRAZOLE SOD 40 MG TABEC PO SCH (16:07)
[2018-02-05] MEDS: ACETAMINOPHEN 325 MG TAB PO PRN (23:55)
[2018-02-06] VITALS: BP 161/87
[2018-02-06] MEDS: ACETAMINOPHEN 325 MG TAB PO PRN
[2018-02-06 04:00] VITALS: BP 151/86
[2018-02-06 05:14] LABS: ANION GAP 13.2 mmol/L (8-16); BLOOD UREA NITROGEN < 5 mg/dL (7-26); CARBON DIOXIDE 27 mmol/L (22-29); CHLORIDE 103 mmol/L (98-107); EST GLOMERULAR FILTRATION RATE > 60 ML/MIN (60-); GLUCOSE 166 mg/dL (74-118); MAGNESIUM 1.6 MG/DL (1.3-2.1); POTASSIUM 3.2 mmol/L (3.5-5.1); SODIUM 140 mmol/L (136-145)
[2018-02-06 05:27] LABS: BUN/CREATININE RATIO 8 (6-25)
[2018-02-06] MEDS: SALINE 0.65% NAS SOLN 1 SPRAY BTL SCH ×3 (06:00→14:00)
[2018-02-06] MEDS: LEVOTHYROXINE SODIUM 25 MCG TABLET PO SCH (06:18)
[2018-02-06] MEDS: INSULIN LISPRO 100 UNIT/1 ML 3ML VIAL SQ SCH ×4 (07:30→12:00)
[2018-02-06] MEDS ORDERED: POTASSIUM CHLORIDE 20 MEQ TAB CR PO STA (07:56)
[2018-02-06 08:00] VITALS: BP_SYST 151; BP_SYST 162; BP_DIAS 86; BP_DIAS 87
[2018-02-06] MEDS: ALBUTEROL SULF 0.083% NEB SOLN 3 ML NEB NEB PRN (08:10)
[2018-02-06] MEDS: PANTOPRAZOLE SOD 40 MG TABEC PO SCH (08:30)
[2018-02-06] MEDS: INSULIN DETEMIR 100 UNIT/ML PEN SQ SCH (08:59)
[2018-02-06] MEDS: LISINOPRIL 20 MG TAB PO SCH (09:03)
[2018-02-06] MEDS: DICYCLOMINE HCL 10 MG CAP PO SCH (09:03)
[2018-02-06] MEDS: NEBIVOLOL 10 MG TAB PO SCH (09:03)
[2018-02-06] MEDS ORDERED: LEVOFLOXACIN 500 MG TAB PO NR (12:45)
[2018-02-06] MEDS ORDERED: METRONIDAZOLE 500 MG TAB PO NR (12:45)
--- OUTSIDE RECORDS SUMMARY | 2018-02-10 09:43 | XMS REPORT | Summary of Care ---
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) Status: Active Thyroid cyst (246.2, E04.1) Status: Active Influenza vaccine needed (V04.81, Z23) Status: Active Abnormal LFTs (790.6, R94.5) Status: Active Type 1 diabetes mellitus (250.01, E10.9) Status: Active Hypertension (401.9, I10) Status: Active Hypothyroidism (244.9, E03.9) Status: Active Vitamin B12 deficiency (266.2, E53.8) Status: Active Vitamin D deficiency (268.9, E55.9) Status: Active Medications Name Dates Details Synthroid 88 MCG Oral Tablet 1 a day; give as Synthroid 88 mcg; brand necessary Quantity: 90 JOSH M.Sebastian., MARIA ISABEL * Start : 14-Mar-2012 Active Vitamin D 2000 UNIT Oral Capsule 1 a day; Restart 02-25-17 * Refills: 0 JOSH MARIA ISABEL Cordova * Start : 14-Mar-2012 Active BD Pen Needle Blanca U/F 32G X 4 MM 5 a day * Quantity: 5 Refills: 3 JOSH M.D., MARIA ISABEL * Start : 14-Mar-2012 Active 100 Unit Box Ketostix In Vitro Strip USE DIRECTED. * Refills: 0 JOSH M.MARIA ISABEL Reyes * Start : 14-Mar-2012 Active GlucaGen 1 MG SOLR USE DIRECTED in case of severe hypoglycemia * Quantity: 1 Refills: 11 JOSH M.D., MARIA ISABEL * Start : 14-Mar-2012 Active Nascobal 500 MCG/0.1ML Nasal Solution USE 1 SPRAY IN ONE NOSTRIL ONCE A WEEK * Quantity: 1 Refills: 3 MARIA ISABEL MORENO M.D. * Start : 01-Jul-2012 Active 4 x 1 Milliliter Bottle NovoLOG PenFill 100 UNIT/ML Subcutaneous Solution Cartridge Take 4-6 units with meals; ICR 1-2 units per 15 gm carb; CF 60 * Quantity: 3 Refills: 1 MARIA ISABEL MORENO M.D. * Start : 28-Oct-2013 Active 5 x 3 ML Cartridge OneTouch Delica Lancets Fine CHECK BG 6X DAY * Quantity: 600 Refills: 1 MARIA ISABEL MORENO M.D. * Start : 14-Dec-2013 Active HumuLIN N KwikPen 100 UNIT/ML Subcutaneous Suspension Pen-injector take 3 units for every 10 mg prednisone(to be taken at the same time); * Quantity: 5 Refills: 1 MARIA ISABEL MORENO M.D. * Start : 11-Jul-2014 Active 3 ML Pen Lisinopril 10 MG Oral Tablet 1 a day * Quantity: 90 Refills: 1 MARIA ISABEL MORENO M.D. * Start : 09-Jan-2015 Active Bystolic 5 MG Oral Tablet Per aed trainer * Refills: 0 MARIA ISABEL MORENO M.D. * Start : 17-Apr-2015 Active OneTouch Verio In Vitro Strip Check BG 5x a day * Quantity: 5 Refills: 3 MARIA ISABEL MORENO M.D. * Start : 11-Dec-2015 Active 100 Strip Box Tresiba FlexTouch 100 UNIT/ML Subcutaneous Solution Pen-injector INJECT 13 TO 16 UNITS SUBCUTANEOUSLY IN THE MORNING REPLACING TOUJEO * Quantity: 1 Refills: 0 MARIA ISABEL MORENO M.D. * Start : 30-Jul-2017 Active 5 x 3 ML Pen NexIUM 40 MG Oral Packet * Refills: 0 MARIA ISABEL MORENO M.D. * Start : 07-Jul-2017 Active Allergies and Adverse Reactions Name Dates Details No Known Drug Allergies (Allergy) Status: Active Past Medical History Name Dates Details Influenza vaccine needed (V04.81, Z23) Status: Active Procedures Procedure Dates Details History of Cholecystectomy Completed History of Hysterectomy Completed Immunization Name Dates Details Influenza on: 23-Mar-2012 Fluzone INJ Lot #: [id number] on: 04-Jan-2013 Influenza Comments: Approx 26Jan2014 Influenza Comments: Approx 08Feb2015 Influenza Comments: Approx 12Feb2017 Family History Name Dates Details Family history of Diabetes Mellitus (V18.0) Comments: Family History Status: Active Name Dates Details Family history of Diabetes Mellitus (V18.0) Status: Active Name Dates Details Family history of essential hypertension (V17.49, Z82.49) Status: Active Social History Name Dates Details - Status: Name Dates Details Never smoker Vital Signs Date Test Result Details [id number] BP Systolic 120 mm[Hg] Status: BP Diastolic 70 mm[Hg] Status: [id number] BP Systolic 107 mm[Hg] Status: Comments: Location: LUE; Position: Sitting BP Diastolic 66 mm[Hg] Status: Comments: Location: LUE; Position: Sitting Height 64 in Status: Weight 147.3125 lb Status: Body Mass Index Calculated 25.29 kg/m2 Status: Body Surface Area Calculated 1.72 m2 Status: Heart Rate 83 /min Status: Comments: Location: L Radial; Quality: Normal Results Date Description Value Details :52 [O] Lipid Panel (In Office) CHOLESTEROL, TOTAL 147 HDL CHOLESTEROL 105 TRIGLYCERIDES 74 LDL-CHOLESTEROL 27 NON HDL CHOLESTEROL 42 T. Chol/HDL Ratio 1.4 GLUCOSE 247 [id number] [O] Hemoglobin A1c (in office) HEMOGLOBIN A1c 7.7 Plan of Care Name Dates Details Planned Observations Planned Goals not documented Planned Encounters Appointment; MARIA ISABEL MORENO M.D. On: 27-Oct-2017 8:30 Instructions Name Dates Details Instructions not documented Encounters Appointment; MARIA ISABEL MORENO M.D. Encounter Diagnosis: Problem not documented On: 11-Dec-2015 8:00 Appointment; MARIA ISABEL MORENO M.D. Encounter Diagnosis: Problem not documented On: 04-Mar-2016 11:00 Appointment; MARIA ISABEL MORENO M.D. Encounter Diagnosis: Problem not documented On: 24-Jun-2016 8:30 Appointment; MARIA ISABEL MORENO M.D. Encounter Diagnosis: Problem not documented On: 28-Oct-2016 8:30 Appointment; MARIA ISABEL MORENO M.D. Encounter Diagnosis: Problem not documented On: 24-Feb-2017 11:00 Appointment; MARIA ISABEL MORENO M.D. Encounter Diagnosis: Problem not documented On: 07-Jul-2017 11:00
== END 2018-02-06 14:22 | disposition home or self-care (01) | DRG 73 ==
LOC: ER 08:39 → ERHOLD 10:55 → MED/SURG3 13:56 → OBSVTOIN 01-31 15:45 → ICU 02-01 08:13 → IMCU 02-04 19:10
PROVIDERS: ADMIT Internal Medicine; ATTEND Internal Medicine
PROC: 0DBB8ZX Excision of Ileum, Via Natural or Artificial Opening Endoscopic, Diagnostic (ICD-10-PCS; 2018-01-31)
PROC: 0DBG8ZX Excision of Left Large Intestine, Via Natural or Artificial Opening Endoscopic, Diagnostic (ICD-10-PCS; 2018-01-31)
PROC: 0BH17EZ Insertion of Endotracheal Airway into Trachea, Via Natural or Artificial Opening (ICD-10-PCS; 2018-01-31)
PROC: 5A1935Z Respiratory Ventilation, Less than 24 Consecutive Hours (ICD-10-PCS; 2018-01-31)
PROC: 0DBK8ZX Excision of Ascending Colon, Via Natural or Artificial Opening Endoscopic, Diagnostic (ICD-10-PCS; 2018-01-31 17:07)
PROC: 0DBM8ZX Excision of Descending Colon, Via Natural or Artificial Opening Endoscopic, Diagnostic (ICD-10-PCS; 2018-01-31 17:07)
PROC: 02HV33Z Insertion of Infusion Device into Superior Vena Cava, Percutaneous Approach (ICD-10-PCS; principal; 2018-02-01)
DX: E10.43 Type 1 diabetes mellitus with diabetic autonomic (poly)neuropathy (principal); J96.00 Acute respiratory failure, unspecified whether with hypoxia or hypercapnia; N17.9 Acute kidney failure, unspecified; E10.10 Type 1 diabetes mellitus with ketoacidosis without coma; I10 Essential (primary) hypertension; E03.9 Hypothyroidism, unspecified; R00.0 Tachycardia, unspecified; J32.9 Chronic sinusitis, unspecified; J34.2 Deviated nasal septum; K21.9 Gastro-esophageal reflux disease without esophagitis; K31.84 Gastroparesis; Z79.4 Long term (current) use of insulin; E87.70 Fluid overload, unspecified; E10.40 Type 1 diabetes mellitus with diabetic neuropathy, unspecified; I16.0 Hypertensive urgency; K52.9 Noninfective gastroenteritis and colitis, unspecified; E87.6 Hypokalemia; E83.42 Hypomagnesemia; J98.01 Acute bronchospasm; D53.9 Nutritional anemia, unspecified; E86.0 Dehydration; K63.5 Polyp of colon
CPT/HCPCS: 31500; 31720; 36415; 36569; 36600; 45378; 45384; 45385; 71045; 74018; 74177; 74181; 74230; 80048; 80053; 80076; 81001; 82150; 82550; 82553; 82607; 82728; 82746; 82805; 82947; 82948; 83036; 83540; 83605; 83630; 83690; 83735; 83930; 83993; 84295; 84439; 84443; 84466; 84484; 84520; 85025; 85045; 85610; 86635; 87045; 87086; 87177; 87328; 87493; 88305; 93005; 94002; 94640; 96360; 96361; 96366; 96372; 97139; 99284; G0378; J0330; J1644; J1956; J1980; J2060; J2250; J2405; J2765; J3411; J3475; J3480; J7030; J7050; J7120; Q9967

== ENCOUNTER 2018-08-03 06:51 | Inpatient (IN) | payer OTHER ==
[~2018-08-03] VITALS: Ht 162.6 cm; Wt 67.8 kg
[~2018-08-03 06:51] MED LIST changes: +BYSTOLIC10 MG PO; +LISINOPRIL10 MG PO; +LISINOPRIL2.5 MG PO; +NOVOLOG100 UNIT/1 SC; +PANTOPRAZOLE SO40 MG PO; +SUCRALFATE1 GM PO; +SYNTHROID25 MCG PO; +TRISEBA SC
--- OUTSIDE RECORDS SUMMARY | 2018-08-03 06:53 | XMS REPORT | Clinical Summary ---
Author Author JAN[facility] Address Unknown Phone Unavailable Care Team Providers Care Fitness Sales Consultant Name Role Phone PCP Unavailable Allergies Comments Active Allergy Reactions Severity Noted Date Penicillins 06/20/2018 Medications End Date Status Medication Sig Dispensed Refills Start Date Active nebivolol (BYSTOLIC) 5 MG Take 5 mg by 0 tablet mouth daily Pt unsure of dose . Active levothyroxine (SYNTHROID, Take 88 mcg 0 LEVOTHROID) 88 MCG by mouth tabletIndications: Every morning hypothyroidism on an empty stomach. Active cetirizine (ZYRTEC) 10 MG Take 10 mg by 0 tablet mouth daily. Active insulin degludec (TRESIBA Inject 15 0 FLEXTOUCH U-100) 100 Units unit/mL (3 mL) InPn subcutaneousl y every morning . 06/28/2019 Active furosemide (LASIX) 20 MG Take 1 tablet 20 tablet 0 tablet (20 mg total) 9 by mouth daily. 07/01/2018 levoFLOXacin (LEVAQUIN) Take 1 tablet 2 tablet 0 500 MG tablet (500 mg 9 total) by mouth daily for 2 days. 06/30/2018 doxycycline (MONODOX) 100 Take 1 6 capsule 0 MG capsule capsule (100 9 mg total) by mouth 2 (two) times daily for 3 days. Active Problems Problem Noted Date Anemia 06/20/2018 Hypokalemia 06/20/2018 Weakness 06/20/2018 Uncontrolled other specified diabetes mellitus with hyperglycemia 06/20/2018 Essential hypertension 06/20/2018 Encounters Care Team Description Date Type Specialty Carolina Saldaña MD 06/26/2018 Anesthesia Gastroenterology Event Mali Syed MD UPPER ENDOSCOPY,BIOPSY 06/26/2018 Surgery Gastroenterology 06/21/2018 Travel Gopi, DO Maria Elena Rojas Jonard Herbias, MD Tran, Tuyen V., MD Anemia, unspecified type (Primary Dx); Hypokalemia; Weakness; Uncontrolled other specified diabetes mellitus with hyperglycemia (HCC); Essential hypertension 06/20/2018 [facility] Internal Medicine - Encounter 06/27/2018 06/20/2018 Travel after 08/02/2017 Social History Date Tobacco Use Types Packs/Day Years Used Never Smoker Sex Assigned at Date Recorded Not on file Industry Job Start Date Occupation Not on file Not on file Not on file Travel End Travel History Travel Start No recent travel history available. Last Filed Vital Signs Time Taken Vital Sign Reading 06/27/2018 11:07 AM COIL REPAIR TECHNICIAN Blood Pressure 112/57 06/27/2018 11:07 AM COIL REPAIR TECHNICIAN Pulse 89 06/27/2018 11:07 AM COIL REPAIR TECHNICIAN Temperature 37.1 C (98.7 F) 06/27/2018 11:07 AM COIL REPAIR TECHNICIAN Respiratory Rate 18 06/27/2018 11:07 AM COIL REPAIR TECHNICIAN Oxygen Saturation 91% 06/26/2018 7:56 PM COIL REPAIR TECHNICIAN Inhaled Oxygen 21% Concentration 06/27/2018 6:00 AM COIL REPAIR TECHNICIAN Weight 66.7 kg (147 lb) 06/20/2018 8:56 PM COIL REPAIR TECHNICIAN Height 162.6 cm (5' 4") 06/27/2018 6:00 AM COIL REPAIR TECHNICIAN Body Mass Index 25.23 Plan of Treatment Not on file Procedures Comments Procedure Name Priority Date/Time Associated Diagnosis RHYTHM STRIP - SCAN 07/01/2018 10:10 AM COIL REPAIR TECHNICIAN POCT-GLUCOSE METER Routine 06/27/2018 12:26 PM COIL REPAIR TECHNICIAN XR CHEST 1 VIEW Routine 06/27/2018 PORTABLE/BEDSIDE 8:59 AM COIL REPAIR TECHNICIAN POCT-GLUCOSE METER Routine 06/27/2018 7:29 AM COIL REPAIR TECHNICIAN CBC W/PLT COUNT & AUTO Routine 06/27/2018 DIFFERENTIAL 4:47 AM COIL REPAIR TECHNICIAN B-TYPE NATRIURETIC FACTOR Routine 06/27/2018 (BNP) 4:47 AM COIL REPAIR TECHNICIAN CBC W/PLT COUNT & AUTO Routine 06/27/2018 DIFFERENTIAL 4:47 AM COIL REPAIR TECHNICIAN COMPREHENSIVE METABOLIC Routine 06/27/2018 PANEL 4:47 AM COIL REPAIR TECHNICIAN ECHOCARDIOGRAM REPORT - 06/26/2018 SCAN 9:22 PM COIL REPAIR TECHNICIAN POCT-GLUCOSE METER Routine 06/26/2018 9:08 PM COIL REPAIR TECHNICIAN VANCOMYCIN LEVEL, TROUGH Timed 06/26/2018 4:13 PM COIL REPAIR TECHNICIAN POCT-GLUCOSE METER Routine 06/26/2018 3:12 PM COIL REPAIR TECHNICIAN POCT-GLUCOSE METER Routine 06/26/2018 2:18 PM COIL REPAIR TECHNICIAN REPORT OF PROCEDURE - 06/26/2018 ENDOSCOPY URL 1:37 PM COIL REPAIR TECHNICIAN REPORT OF PROCEDURE - 06/26/2018 ENDOSCOPY URL 1:31 PM COIL REPAIR TECHNICIAN TISSUE EXAM AP Routine 06/26/2018 1:00 PM COIL REPAIR TECHNICIAN COLONOSCOPY,POLYPECTOMY 06/26/2018 Iron deficiency anemia, 11:01 AM COIL REPAIR TECHNICIAN unspecified iron deficiency anemia type Special Needs egd/colon w/ anes UPPER ENDOSCOPY,BIOPSY 06/26/2018 Iron deficiency anemia, 11:01 AM COIL REPAIR TECHNICIAN unspecified iron deficiency anemia type Special Needs egd/colon w/ anes POCT-GLUCOSE METER Routine 06/26/2018 7:13 AM COIL REPAIR TECHNICIAN CBC W/PLT COUNT & AUTO Routine 06/26/2018 DIFFERENTIAL 4:31 AM COIL REPAIR TECHNICIAN HEPATIC FUNCTION PANEL Routine 06/26/2018 4:31 AM COIL REPAIR TECHNICIAN PHOSPHORUS Routine 06/26/2018 4:31 AM COIL REPAIR TECHNICIAN MAGNESIUM Routine 06/26/2018 4:31 AM COIL REPAIR TECHNICIAN BASIC METABOLIC PANEL (7) Routine 06/26/2018 4:31 AM COIL REPAIR TECHNICIAN CBC W/PLT COUNT & AUTO Routine 06/26/2018 DIFFERENTIAL 4:31 AM COIL REPAIR TECHNICIAN POCT-GLUCOSE METER Routine 06/25/2018 9:26 PM COIL REPAIR TECHNICIAN POCT-GLUCOSE METER Routine 06/25/2018 4:16 PM COIL REPAIR TECHNICIAN POCT-GLUCOSE METER Routine 06/25/2018 1:06 PM COIL REPAIR TECHNICIAN 2D ECHO W/ DOPPLER SCOTTY 06/25/2018 (CW/PW/COLOR) 11:46 AM COIL REPAIR TECHNICIAN POCT-GLUCOSE METER Routine 06/25/2018 8:50 AM COIL REPAIR TECHNICIAN XR CHEST 1 VIEW SCOTTY 06/25/2018 PORTABLE/BEDSIDE 6:50 AM COIL REPAIR TECHNICIAN CBC W/PLT COUNT & AUTO Routine 06/25/2018 DIFFERENTIAL 4:50 AM COIL REPAIR TECHNICIAN HEPATIC FUNCTION PANEL Routine 06/25/2018 4:50 AM COIL REPAIR TECHNICIAN B-TYPE NATRIURETIC FACTOR Routine 06/25/2018 (BNP) 4:50 AM COIL REPAIR TECHNICIAN PHOSPHORUS Routine 06/25/2018 4:50 AM COIL REPAIR TECHNICIAN MAGNESIUM Routine 06/25/2018 4:50 AM COIL REPAIR TECHNICIAN BASIC METABOLIC PANEL (7) Routine 06/25/2018 4:50 AM COIL REPAIR TECHNICIAN CBC W/PLT COUNT & AUTO Routine 06/25/2018 DIFFERENTIAL 4:50 AM COIL REPAIR TECHNICIAN LACTIC ACID, VENOUS Routine 06/25/2018 4:50 AM COIL REPAIR TECHNICIAN POCT-GLUCOSE METER Routine 06/24/2018 9:48 PM COIL REPAIR TECHNICIAN POCT-GLUCOSE METER Routine 06/24/2018 6:13 PM COIL REPAIR TECHNICIAN TRANSFUSION SERVICE 06/24/2018 REPORT - SCAN 6:03 PM COIL REPAIR TECHNICIAN POCT-GLUCOSE METER Routine 06/24/2018 1:08 PM COIL REPAIR TECHNICIAN LACTIC ACID, VENOUS STAT 06/24/2018 12:14 PM COIL REPAIR TECHNICIAN LACTIC ACID, VENOUS STAT 06/24/2018 9:25 AM COIL REPAIR TECHNICIAN POCT-GLUCOSE METER Routine 06/24/2018 7:57 AM COIL REPAIR TECHNICIAN RAPID INFLUENZA A&B Routine 06/24/2018 SCREEN 6:41 AM COIL REPAIR TECHNICIAN PROCALCITONIN STAT 06/24/2018 6:36 AM COIL REPAIR TECHNICIAN RESPIRATORY PANEL SLHS Routine 06/24/2018 6:32 AM COIL REPAIR TECHNICIAN RESPIRATORY PANEL SLHS Routine 06/24/2018 5:09 AM COIL REPAIR TECHNICIAN CBC W/PLT COUNT & AUTO Routine 06/24/2018 DIFFERENTIAL 4:50 AM COIL REPAIR TECHNICIAN LACTIC ACID, VENOUS Routine 06/24/2018 4:50 AM COIL REPAIR TECHNICIAN PHOSPHORUS Routine 06/24/2018 4:50 AM COIL REPAIR TECHNICIAN MAGNESIUM Routine 06/24/2018 4:50 AM COIL REPAIR TECHNICIAN BASIC METABOLIC PANEL (7) Routine 06/24/2018 4:50 AM COIL REPAIR TECHNICIAN CBC W/PLT COUNT & AUTO Routine 06/24/2018 DIFFERENTIAL 4:50 AM COIL REPAIR TECHNICIAN B-TYPE NATRIURETIC FACTOR Routine 06/24/2018 (BNP) 4:50 AM COIL REPAIR TECHNICIAN PREPARE RBC Routine 06/23/2018 11:54 PM COIL REPAIR TECHNICIAN POCT-GLUCOSE METER Routine 06/23/2018 10:42 PM COIL REPAIR TECHNICIAN TRANSFUSION SERVICE 06/23/2018 REPORT - SCAN 6:13 PM COIL REPAIR TECHNICIAN POCT-GLUCOSE METER Routine 06/23/2018 4:49 [address]PAIR [address]ICIAN [address] CHEST WITHOUT IV SCOTTY 06/23/2018 CONTRAST 2:31 PM COIL REPAIR TECHNICIAN XR CHEST 1 VIEW SCOTTY 06/23/2018 PORTABLE/BEDSIDE 1:05 PM COIL REPAIR TECHNICIAN POCT-GLUCOSE METER Routine 06/23/2018 12:45 PM COIL REPAIR TECHNICIAN BLOOD CULTURE Routine 06/23/2018 12:13 PM COIL REPAIR TECHNICIAN BLOOD CULTURE Routine 06/23/2018 11:53 AM COIL REPAIR TECHNICIAN POCT-GLUCOSE METER Routine 06/23/2018 7:27 AM COIL REPAIR TECHNICIAN CBC W/PLT COUNT & AUTO Routine 06/23/2018 DIFFERENTIAL 5:33 AM COIL REPAIR TECHNICIAN PHOSPHORUS Routine 06/23/2018 5:33 AM COIL REPAIR TECHNICIAN MAGNESIUM Routine 06/23/2018 5:33 AM COIL REPAIR TECHNICIAN BASIC METABOLIC PANEL (7) Routine 06/23/2018 5:33 AM COIL REPAIR TECHNICIAN CBC W/PLT COUNT & AUTO Routine 06/23/2018 DIFFERENTIAL 5:33 AM COIL REPAIR TECHNICIAN POCT-GLUCOSE METER Routine 06/22/2018 8:59 PM COIL REPAIR TECHNICIAN TRANSFUSION SERVICE 06/22/2018 REPORT - SCAN 6:01 PM COIL REPAIR TECHNICIAN POCT-GLUCOSE METER Routine 06/22/2018 4:58 PM COIL REPAIR TECHNICIAN URINALYSIS W/ REFLEX Routine 06/22/2018 URINE CULTURE 2:37 PM COIL REPAIR TECHNICIAN POCT-GLUCOSE METER Routine 06/22/2018 7:29 AM COIL REPAIR TECHNICIAN CBC W/PLT COUNT & AUTO Routine 06/22/2018 DIFFERENTIAL 6:55 AM COIL REPAIR TECHNICIAN HEPATIC FUNCTION PANEL Routine 06/22/2018 6:55 AM COIL REPAIR TECHNICIAN PHOSPHORUS Routine 06/22/2018 6:55 AM COIL REPAIR TECHNICIAN MAGNESIUM Routine 06/22/2018 6:55 AM COIL REPAIR TECHNICIAN CBC W/PLT COUNT & AUTO Routine 06/22/2018 DIFFERENTIAL 6:55 AM COIL REPAIR TECHNICIAN BASIC METABOLIC PANEL (7) Routine 06/22/2018 6:55 AM COIL REPAIR TECHNICIAN TRANSFUSE LEUKO-REDUCED Routine 06/22/2018 RED BLOOD CELLS 5:06 AM COIL REPAIR TECHNICIAN POCT-GLUCOSE METER Routine 06/21/2018 10:09 PM COIL REPAIR TECHNICIAN PHOSPHORUS Routine 06/21/2018 7:33 PM COIL REPAIR TECHNICIAN MAGNESIUM Routine 06/21/2018 7:33 PM COIL REPAIR TECHNICIAN BASIC METABOLIC PANEL (7) Routine 06/21/2018 7:33 PM COIL REPAIR TECHNICIAN TRANSFUSE LEUKO-REDUCED Routine 06/21/2018 RED BLOOD CELLS 6:42 PM COIL REPAIR TECHNICIAN TRANSFUSION SERVICE 06/21/2018 REPORT - SCAN 6:01 PM COIL REPAIR TECHNICIAN POCT-GLUCOSE METER Routine 06/21/2018 1:[address]IR [address]IC[address] ABDOMEN/PELVIS WITH IV SCOTTY 06/21/2018 CONTRAST 1:16 PM COIL REPAIR TECHNICIAN TYPE AND SCREEN, SCOTTY 06/21/2018 AUTOMATED 12:00 PM COIL REPAIR TECHNICIAN US ABDOMEN COMPLETE Routine 06/21/2018 8:25 AM COIL REPAIR TECHNICIAN POCT-GLUCOSE METER Routine 06/21/2018 7:52 AM COIL REPAIR TECHNICIAN CBC W/PLT COUNT & AUTO Routine 06/21/2018 DIFFERENTIAL 5:48 AM COIL REPAIR TECHNICIAN PHOSPHORUS Routine 06/21/2018 5:48 AM COIL REPAIR TECHNICIAN MAGNESIUM Routine 06/21/2018 5:48 AM COIL REPAIR TECHNICIAN BASIC METABOLIC PANEL (7) Routine 06/21/2018 5:48 AM COIL REPAIR TECHNICIAN CBC W/PLT COUNT & AUTO Routine 06/21/2018 DIFFERENTIAL 5:48 AM COIL REPAIR TECHNICIAN HEPATIC FUNCTION PANEL Routine 06/21/2018 5:48 AM COIL REPAIR TECHNICIAN LIPID PANEL Routine 06/21/2018 5:48 AM COIL REPAIR TECHNICIAN VITAMIN B12 AND FOLATE Routine 06/21/2018 5:48 AM COIL REPAIR TECHNICIAN OCCULT BLOOD, STOOL Routine 06/21/2018 12:10 AM COIL REPAIR TECHNICIAN BLOOD TYPING, AUTOMATED Routine 06/20/2018 10:14 PM COIL REPAIR TECHNICIAN DIRECT AHG (ANDREIA)/DIRECT Routine 06/20/2018 GE 10:14 PM COIL REPAIR TECHNICIAN BILIRUBIN, INDIRECT Routine 06/20/2018 10:14 PM COIL REPAIR TECHNICIAN LIPASE Routine 06/20/2018 10:14 PM COIL REPAIR TECHNICIAN PHOSPHORUS Routine 06/20/2018 10:14 PM COIL REPAIR TECHNICIAN PT/APTT Routine 06/20/2018 10:14 PM COIL REPAIR TECHNICIAN HEMOGLOBIN A1C Routine 06/20/2018 10:14 PM COIL REPAIR TECHNICIAN TSH/FREE T4 IF INDICATED Routine 06/20/2018 10:14 PM COIL REPAIR TECHNICIAN RETICULOCYTE COUNT Routine 06/20/2018 10:14 PM COIL REPAIR TECHNICIAN HAPTOGLOBIN Routine 06/20/2018 10:14 PM COIL REPAIR TECHNICIAN LACTATE DEHYDROGENASE Routine 06/20/2018 (LDH) 10:14 PM COIL REPAIR TECHNICIAN IRON, TIBC, % SAT. Routine 06/20/2018 (WITHOUT FERRITIN) 10:14 PM COIL REPAIR TECHNICIAN FERRITIN Routine 06/20/2018 10:14 PM COIL REPAIR TECHNICIAN PERIPHERAL BLOOD SMEAR - Routine 06/20/2018 PATHOLOGIST REVIEW 10:14 PM COIL REPAIR TECHNICIAN LACTIC ACID, VENOUS Routine 06/20/2018 10:14 PM COIL REPAIR TECHNICIAN KETONE, BLOOD Routine 06/20/2018 10:14 PM COIL REPAIR TECHNICIAN ANTI-NUCLEAR ANTIBODY Routine 06/20/2018 (AYDEN) 10:14 PM COIL REPAIR TECHNICIAN C-REACTIVE PROTEIN Routine 06/20/2018 10:14 PM COIL REPAIR TECHNICIAN POCT-GLUCOSE METER Routine 06/20/2018 10:12 PM COIL REPAIR TECHNICIAN XR CHEST 1 VIEW SCOTTY 06/20/2018 PORTABLE/BEDSIDE 9:34 PM COIL REPAIR TECHNICIAN CBC W/PLT COUNT & AUTO STAT 06/20/2018 DIFFERENTIAL 4:28 PM COIL REPAIR TECHNICIAN BASIC METABOLIC PANEL (7) STAT 06/20/2018 4:28 PM COIL REPAIR TECHNICIAN CBC W/PLT COUNT & AUTO STAT 06/20/2018 DIFFERENTIAL 4:28 PM COIL REPAIR TECHNICIAN after 08/02/2017 Results * RHYTHM STRIP - SCAN (07/01/2018 10:10 AM COIL REPAIR TECHNICIAN) Narrative Performed At * POC-Glucose meter (06/27/2018 12:26 PM COIL REPAIR TECHNICIAN) Only the most recent of 25 results within the time period is included. POC-Glucose Meter 178 (H)Comment: TESTED AT 70 - 110 mg/dL [facility] [address] [facility] [id number] Specimen Blood Performing Organization Address City/State/Zipcode Phone Number [facility] [address] [place] [address] [facility] * XR chest 1 view portable / bedside (06/27/2018 8:59 AM COIL REPAIR TECHNICIAN) Only the most recent of 4 results within the time period is included. Narrative Performed At FINAL REPORT [facility] Portable chest. CLINICAL HISTORY: pulmonary edema, pna. COMPARISON STUDY: June 25, 2018. FINDINGS: The cardiac silhouette is enlarged. The pulmonary parenchyma demonstrates increased interstitial markings, more pronounced on the left side with some atelectasis or consolidation identified. No pneumothorax is seen. Degenerative changes are noted. IMPRESSION: Increased interstitial markings in the left lung with atelectasis or consolidation, slightly more pronounced than on previous. In the right clinical setting, a superimposed infection would be difficult to exclude. Clinical correlation and short term imaging follow-up could be made to exclude other etiologies. Signed: Vishnu Delgado MD Report Verified Date/Time:06/27/2018 11:13:29 Reading Location: [facility] B1 C013Y CT Body Reading Room Procedure Note Interface, External Ris In - 06/27/2018 11:15 AM COIL REPAIR TECHNICIAN FINAL REPORT Portable chest. CLINICAL HISTORY: pulmonary edema, pna. COMPARISON STUDY: June 25, 2018. FINDINGS: The cardiac silhouette is enlarged. The pulmonary parenchyma demonstrates increased interstitial markings, more pronounced on the left side with some atelectasis or consolidation identified. No pneumothorax is seen. Degenerative changes are noted. IMPRESSION: Increased interstitial markings in the left lung with atelectasis or consolidation, slightly more pronounced than on previous. In the right clinical setting, a superimposed infection would be difficult to exclude. Clinical correlation and short term imaging follow-up could be made to exclude other etiologies. Signed: Vishnu Delgado MD Report Verified Date/Time: 06/27/2018 11:13:29 Reading Location: [facility] C013Y CT Body Reading Room Performing Organization Address City/State/Zipcode Phone Number [facility] * CBC with platelet count + automated diff (06/27/2018 4:47 AM COIL REPAIR TECHNICIAN) Only the most recent of 8 results within the time period is included. WBC 3.7 3.5 - 10.5 K/L [facility] RBC 3.35 (L) 3.93 - 5.22 M/L [facility] Hemoglobin 9.4 (L) 11.2 - 15.7 GM/DL [facility] Hematocrit 31.4 (L) 34.1 - 44.9 % [facility] MCV 93.7 79.4 - 94.8 fL [facility] MCH 28.1 25.6 - 32.2 pg [facility] MCHC 29.9 (L) 32.2 - 35.5 GM/DL [facility] RDW 27.9 (H) 11.7 - 14.4 % [facility] Platelets 253 150 - 450 K/CU MM [facility] MPV 11.2 9.4 - 12.3 fL [facility] nRBC 0 0 - 0 /100 WBC [facility] % Neutros 68 % [facility] % Lymphs 21 % [facility] % Monos 7 % [facility] % Eos 2 % [facility] % Baso 1 % [facility] # Neutros 2.54 1.56 - 6.13 K/L [facility] # Lymphs 0.79 (L) 1.18 - 3.74 K/L [facility] # Monos 0.27 0.24 - 0.36 K/L [facility] # Eos 0.08 0.04 - 0.36 K/L [facility] # Baso 0.02 0.01 - 0.08 K/L [facility] Immature 0 0 - 1 % [facility] Specimen Blood - Arm, Left Performing Organization Address City/[facility] Cent[facility] Phone Number [address] * B-type Natriuretic Factor (BNP) (06/27/2018 4:47 AM COIL REPAIR TECHNICIAN) Only the most recent of 3 results within the time period is included. BNP 141 (H) 0 - 100 pg/mL [facility] Specimen Blood - Arm, Left Performing Organization Address City/[facility]/Zipcode Phone Number [place] [phone] [place] [address] * Comprehensive metabolic panel (06/27/2018 4:47 AM COIL REPAIR TECHNICIAN) Protein, Total 5.6 (L) 6.0 - 8.3 gm/dL [facility] Albumin 3.1 (L) 3.5 - 5.0 g/dL [facility] Alkaline Phosphatase 136 40 - 150 U/L [facility] Total Bilirubin 1.8 (H) 0.2 - 1.2 mg/dL [facility] Sodium 135 (L) 136 - 145 meq/L [facility] Potassium 3.1 (L) 3.5 - 5.1 meq/L [facility] Chloride 98 98 - 107 meq/L [facility] CO2 26 22 - 29 meq/L [facility] BUN 3 (L) 7 - 21 mg/dL [facility] Creatinine 0.57 0.57 - 1.25 mg/dL [facility] Glucose 141 (H) 70 - 105 mg/dL [facility] Calcium 8.7 8.4 - 10.2 mg/dL [facility] AST 32 5 - 34 U/L [facility] ALT 12 6 - 55 U/L [facility] EGFR 112Comment: ESTIMATED GFR IS mL/min/1.[address] [facility] NOT ACCURATE CREATININE [facility] CLEARANCE IN PREDICTING GLOMERULAR FILTRATION RATE. ESTIMATED GFR IS NOT APPLICABLE FOR DIALYSIS PATIENTS. Specimen Blood - Arm, Left Performing Organization Address City/[facility] [place] [address] [facility] * ECHOCARDIOGRAM REPORT - SCAN (06/26/2018 9:22 PM COIL REPAIR TECHNICIAN) Narrative Performed At * Vancomycin level, trough (06/26/2018 4:13 PM COIL REPAIR TECHNICIAN) Vancomycin Tr 11.6 10.0 - 20.0 ug/mL [facility] Specimen Blood - Arm, Right Performing Organization Address City/[facility] Centercode Phone Number [facility] [address] [place] [phone] [facility] * REPORT OF PROCEDURE - ENDOSCOPY URL (06/26/2018 1:37 PM COIL REPAIR TECHNICIAN) Narrative Performed At * REPORT OF PROCEDURE - ENDOSCOPY URL (06/26/2018 1:31 PM COIL REPAIR TECHNICIAN) Narrative Performed At * Tissue Exam (06/26/2018 1:00 PM COIL REPAIR TECHNICIAN) Case Report Surgical Pathology [facility] Report [facility] Case: [id number] Authorizing Provider:Mali SyedJAYollected: 06/26/2018 1300 Ordering Location: [address] Received: 06/26/2018 1603 Service Pathologist: Juliann Muñiz MD Specimens: A) - Small Bowel, NOS, R/O celiac disease B) - Stomach, R/O H. pylori C) - Polyp, Colon - Left/Descending DIAGNOSIS A. SMALL BOWEL, BIOPSY: [facility] - DUODENAL MUCOSA WITH [facility] PRESERVED VILLOUS ARCHITECTURE AND NO SIGNIFICANT DIAGNOSTIC ALTERATIONS B. STOMACH, BIOPSY: - OXYNTIC MUCOSA WITH NO SIGNIFICANT DIAGNOSTIC ALTERATIONS - NEGATIVE FOR HELICOBACTER PYLORI - NEGATIVE FOR DYSPLASIA OR CARCINOMA C. COLON, LEFT/DESCENDING, POLYPECTOMY - TUBULAR ADENOMA Signing Pathologist Direct Phone Line: [phone] CPT Code(s) 99430 X3, [address]356 [facility] CLINICAL HISTORY Iron deficiency anemia, rule [facility] out celiac disease, rule out [facility] H. Pylori SPECIMEN SOURCE A. Small bowel biopsy. B. [facility] Stomach biopsy. C. Left [facility] descending colon polyp GROSS DESCRIPTION Specimen is received in three [facility] containers of formalin all [facility] labeled with the patient's information. Specimen A: Labeled "small bowel biopsy" consists of multiple fragments of ivan tissue ranging from less than 0.1 to 0.2 cm, submitted entirely in A1. Specimen B: Labeled "stomach biopsy" consists of four fragments of ivan tissue ranging from 0.1 to 0.3 cm, submitted entirely in B1. Specimen C: Labeled "left descending colon polyp" consists of two fragments of ivan tissue measuring 0.2 and 0.5 cm, submitted entirely in C1. CG/ew MICROSCOPIC DESCRIPTION A. Section shows pieces of [facility] duodenal mucosa with [facility] unremarkable morphology and preserved villous architecture. Plasma cells are present. There is no active inflammation, gastric metaplasia, intraepithelial lymphocytosis or malignancy. No parasites are seen. B. Section shows unremarkable fundic mucosa. Specifically no significant inflammation is seen. No Helicobacter pylori are seen on Warthin Starry stain. There is no intestinal metaplasia, dysplasia or carcinoma. C. There is no high grade dysplasia or carcinoma. SPECIAL STUDIES The interpretation of this [facility] case included the use of [facility] immunohistochemistry or special stains. Warthiandrew-starrogerio Immunohistochemistry technical testing was performed at [facility], Pathology Laboratory where it was developed and its performance characteristics were determined. It has not been cleared or approved by the U.S. Food and Drug Administration. The FDA has determined that such clearance or approval is not necessary. The test is used for clinical purposes. It should not be regarded as investigational or for research. This laboratory is certified under the Clinical Laboratory Improvement Amendments of 1988 (CLIA-88) as qualified to perform high complexity clinical laboratory testing. Specimen Tissue - Small Bowel, NOS Performing Organization Address [facility] Centercode Phone Number [address] * Phosphorus (06/26/2018 4:31 AM COIL REPAIR TECHNICIAN) Only the most recent of 8 results within the time period is included. Phosphorus 2.9 2.3 - 4.7 mg/dL [facility] Specimen Blood - Arm, Left Performing Organization Address [facility] Centercomd Phone Number [address] * Magnesium (06/26/2018 4:31 AM COIL REPAIR TECHNICIAN) Only the most recent of 7 results within the time period is included. Magnesium 1.7 1.6 - 2.6 mg/dL [facility] Specimen Blood - Arm, Left Performing Organization Address [facility]d Phone Number [address] [address] [phone] [place] [address] * Hepatic function panel (06/26/2018 4:31 AM COIL REPAIR TECHNICIAN) Only the most recent of 4 results within the time period is included. Protein, Total 5.7 (L) 6.0 - 8.3 gm/dL [facility] Albumin 3.1 (L) 3.5 - 5.0 g/dL [facility] Total Bilirubin 2.1 (H) 0.2 - 1.2 mg/dL [facility] Bilirubin, Direct 1.4 (H) 0.1 - 0.5 mg/dL [facility] Alkaline Phosphatase 129 40 - 150 U/L [facility] AST 30 5 - 34 U/L [facility] ALT 14 6 - 55 U/L [facility] Specimen Blood - Arm, Left Performing Organization Address City/[facility]/Zipcode Phone Number [facility] [address] [place] [address] [facility] * Basic Metabolic Panel (06/26/2018 4:31 AM COIL REPAIR TECHNICIAN) Only the most recent of 8 results within the time period is included. Sodium 137 136 - 145 meq/L [facility] Potassium 3.5 3.5 - 5.1 meq/L [facility] Chloride 101 98 - 107 meq/L [facility] CO2 25 22 - 29 meq/L [facility] BUN 3 (L) 7 - 21 mg/dL [facility] Creatinine 0.56 (L) 0.57 - 1.25 mg/dL [facility] Glucose 119 (H) 70 - 105 mg/dL [facility] Calcium 8.8 8.4 - 10.2 mg/dL [facility] EGFR 114Comment: ESTIMATED GFR IS mL/min/1.[address] [facility] NOT ACCURATE CREATININE [facility] CLEARANCE IN PREDICTING GLOMERULAR FILTRATION RATE. ESTIMATED GFR IS NOT APPLICABLE FOR DIALYSIS PATIENTS. Specimen Blood - Arm, Left Performing Organization Address City/[facility] Phone Number [facility] [address] [place] [address] [facility] * 2D Echo W/Doppler(CW/PW/Color) (06/25/2018 11:46 AM COIL REPAIR TECHNICIAN) [facility] ECHO HEARTLAB MKCKESSON CPACS Narrative Performed At Transthoracic Echocardiography Report (TTE) [facility] ECHO HEARTLAB Demographics [facility] Patient Name LASHONDA ARMSTRONG Date of Study06/25/2018 EMORY [id number] Gender Female Visit Number [id number] Race [id number] [id number] Number Date of Birth1965 Efrem Arredondo MD Physician Age53 year(s) SonographDrake Goldberg RUST Interpreting Erlinda Hall PhysicianMD Fellow KAYLIN Dietrich Procedure Type of Study TTE procedure:2DECHO W DOPPLER(CW/PW/COLOR) (SCOTTY) Indications:Cardiogenic shock. Clinical History HGB 9.4 HCT 30.0 % DM, HTN, ANEMIA, MODERATE TO HEAVY ETOH USE Height: 64 inches Weight: 68.95 kg (152 lbs) BSA: 1.74 m^2 BMI: 26.09 kg/m^2 HR: 85 bpm BP: 131/79 mmHg Summary HGB 9.4 HCT 30.0 % Signature Findings Rhythm/BPRegular sinus rhythm during the exam. Left Ventricle The LV endocardium is adequately visualized. Global LV systolic function normal . LVEF by Hernandez's method of disk assessment is normal (>60%) . All of the LV segments contract normally . The left ventricle is chamber size (by vol index) is normal (female - LVED vol - 29-61ml/m2). No evidence of LV hypertrophy. Grade 1 diastolic dysfunction (impaired relaxation and low-normal LA pressure). Left AtriumLA size is normal . Right VentricleThe right ventricular chamber size and systolic function are within normal limits. Right Atrium RA size is normal. Aortic Valve Normal AoV structure and function. Mitral Valve Normal MV structure. Trace mitral regurgitation. Tricuspid ValveTV structure is normal. A trace of tricuspid regurgitation. Unable to estimate peak systolic PA pressure; inadequate TR velocity signal. Pulmonic Valve PV is not well visualized; function appears normal by Doppler visualized. AortaAortic root size (SInus of Valsalva diameter) is normal . PericardiumNo significant pericardial effusion is visualized. IVC/SVC/PA/PV/PleuralThe inferior vena cava size is normal . The estimated RA pressure by IVC dynamics 0-5mmHg . Chambers/Structures Left Atrium LA Volume: 38.04 ml LA Area: 15.09 cm^2 LA Vol. Index: 22 ml/m^2 Left Ventricle LVIDd: 4.74 cmLVEDV:73.23 ml LV Septum Diastolic: 0.87 cm LV PW Diastolic: 0.91 cm LVEDV Hernandez's:74.29 mlLV Length: 7.03 cm LVESV Hernandez's:26.38 ml LVEF Hernandez's: 64.5 %LVEDVI: 43 ml/m^2 LVESVI: 15 ml/m^2 LVOT Diameter: 1.95 cm Doppler/Quantitative Measurements Mitral Valve MV Peak E-Wave: 0.94 m/sMV Peak A-Wave: 0.83 m/s E/A Ratio: 1.13 Peak Gradient: 3.56 mmHg Deceleration Time: 193.6 msec MV Vicente. Peak: Tissue Doppler E' Lateral Velocity: 0.08 m/s E/E': 11.92 Aortic Valve Peak Velocity: 2.17 m/sMean Velocity: 1.48 m/s Peak Gradient: 18.76 mmHgMean Gradient: 9.77 mmHg AV Area (continuity): 2.06 cm^2 AV VTI: 44.47 cm AV DVI: 0.69 LVOT Peak Velocity: 1.42 m/s Peak Gradient: 8.13 mmHg Mean Velocity: 0.98 m/s Mean Gradient: 4.39 mmHg LVOT Diameter: 1.95 cmLVOT VTI: 30.64 cm LVOT Area: 2.99 cm^2LVOT SV:91.46 ml LVOT CO: 7.77 l/min LVOT CI: 4.47 l/min/m^2 Tricuspid Valve TR Velocity: 2.75 m/s TR Gradient: 30.21 mmHg Procedure Note Interface, External Ris In - 06/26/2018 11:21 AM COIL REPAIR TECHNICIAN Transthoracic Echocardiography Report (TTE) Demographics Patient Name LASHONDA ARMSTRONG Date of Study 06/25/2018 EM[place] Gender Female Visit Number [id number] Race Room Number 954 Number Date of 1965 Referring Doreen Arredondo MD Physician Age 53 year(s) 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 Clinical History HGB 9.4 HCT 30.0 % DM, HTN, ANEMIA, MODERATE TO HEAVY ETOH USE Height: 64 inches Weight: 68.95 kg (152 lbs) BSA: 1.74 m^2 BMI: 26.09 kg/m^2 HR: 85 bpm BP: 131/79 mmHg Summary HGB 9.4 HCT 30.0 % Signature Findings Rhythm/BP Regular sinus rhythm during the exam. Left Ventricle The LV endocardium is adequately visualized. Global LV systolic function normal . LVEF by Hernandez's method of disk assessment is normal (>60%) . All of the LV segments contract normally . The left ventricle is chamber size (by vol index) is normal (female - LVED vol - 29-61ml/m2). No evidence of LV hypertrophy. Grade 1 diastolic dysfunction (impaired relaxation and low-normal LA pressure). Left Atrium LA size is normal . Right Ventricle The right ventricular chamber size and systolic function are within normal limits. Right Atrium RA size is normal. Aortic Valve Normal AoV structure and function. Mitral Valve Normal MV structure. Trace mitral regurgitation. Tricuspid Valve TV structure is normal. A trace of tricuspid regurgitation. Unable to estimate peak systolic PA pressure; inadequate TR velocity signal. Pulmonic Valve PV is not well visualized; function appears normal by Doppler visualized. Aorta Aortic root size (SInus of Valsalva diameter) is normal . Pericardium No significant pericardial effusion is visualized. IVC/SVC/PA/PV/Pleural The inferior vena cava size is normal . The estimated RA pressure by IVC dynamics 0-5mmHg . Chambers/Structures Left Atrium LA Volume: 38.04 ml LA Area: 15.09 cm^2 LA Vol. Index: 22 ml/m^2 Left Ventricle LVIDd: 4.74 cm LVEDV:73.23 ml LV Septum Diastolic: 0.87 cm LV PW Diastolic: 0.91 cm LVEDV Hernandez's:74.29 ml LV Length: 7.03 cm LVESV Hernandez's:26.38 ml LVEF Hernandez's: 64.5 % LVEDVI: 43 ml/m^2 LVESVI: 15 ml/m^2 LVOT Diameter: 1.95 cm Doppler/Quantitative Measurements Mitral Valve MV Peak E-Wave: 0.94 m/s MV Peak A-Wave: 0.83 m/s E/A Ratio: 1.13 Peak Gradient: 3.56 mmHg Deceleration Time: 193.6 msec MV Vicente. Peak: Tissue Doppler E' Lateral Velocity: 0.08 m/s E/E': 11.92 Aortic Valve Peak Velocity: 2.17 m/s Mean Velocity: 1.48 m/s Peak Gradient: 18.76 mmHg Mean Gradient: 9.77 mmHg AV Area (continuity): 2.06 cm^2 AV VTI: 44.47 cm AV DVI: 0.69 LVOT Peak Velocity: 1.42 m/s Peak Gradient: 8.13 mmHg Mean Velocity: 0.98 m/s Mean Gradient: 4.39 mmHg LVOT Diameter: 1.95 cm LVOT VTI: 30.64 cm LVOT Area: 2.99 cm^2 LVOT SV:91.46 ml LVOT CO: 7.77 l/min LVOT CI: 4.47 l/min/m^2 Tricuspid Valve TR Velocity: 2.75 m/s TR Gradient: 30.21 mmHg Performing Organization Address City/[facility] Cent[facility]ode Phone Number [facility] ECHO HEARTLAB MKCKESSON CPACS * Lactic acid, venous, whole blood Daily (06/25/2018 4:50 AM COIL REPAIR TECHNICIAN) Only the most recent of 5 results within the time period is included. Lactate, Venous 1.0 0.5 - 2.2 mmol/L [facility] Specimen Blood Performing Organization Address [facility] [place] Number [address] * TRANSFUSION SERVICE REPORT - SCAN (06/24/2018 6:03 PM COIL REPAIR TECHNICIAN) Only the most recent of 4 results within the time period is included. Narrative Performed At * Rapid Influenza A&B Screen (06/24/2018 6:41 AM COIL REPAIR TECHNICIAN) Rapid Influenza A Antigen NEGATIVE LABORATORY FINDING Negative, Inconclusive [facility] Rapid influenza B Antigen NEGATIVE LABORATORY FINDING Negative, Inconclusive [facility] Specimen Nasal - Nasopharyngeal Swab Performing Organization Address [facility] [place] Phone Number [address] * Procalcitonin (06/24/2018 6:36 AM COIL REPAIR TECHNICIAN) Procalcitonin 0.10 (H) <0.05 ng/mL [facility] Specimen Blood Narrative Performed At SEPSIS RISK (ng/mL) [facility] Low:0.05-0.50 [facility] Intermediate: 0.51-2.00 High: >=2.01 Performing Organization Address [facility] [place] Phone Number [place] [phone] * RESPIRATORY PANEL [facility] (06/24/2018 6:32 AM COIL REPAIR TECHNICIAN) Only the most recent of 2 results within the time period is included. Human Metapneumovirus Not detected Not detected, Equivocal [facility] Rhinovirus Not detected Not detected, Equivocal [facility] Influenza A Not detected Not detected, Equivocal [facility] INFLUENZA A (NO SUBTYPE) Not detected, Equivocal [facility] Influenza A subtype H1 Not detected, Equivocal [facility] Influenza A Subtype H3 Not detected, Equivocal [facility] Influenza A Subtype Not detected, Equivocal [facility] H1-2009 [facility] Influenza B Not detected Not detected, Equivocal [facility] Respiratory Syncytial Not detected Not detected, Equivocal [facility] Virus [facility] Parainfluenza Virus 1 Not detected Not detected, Equivocal [facility] Parainfluenza Virus 2 Not detected Not detected, Equivocal [facility] Parainfluenza virus 3 Not detected Not detected, Equivocal [facility] Parainfluenza Virus 4 Not detected Not detected, Equivocal [facility] Adenovirus Not detected Not detected, Equivocal [facility] Coronavirus 229E Not detected Not detected, Equivocal [facility] Coronavirus HKU1 Not detected Not detected, Equivocal [facility] Coronavirus NL63 Not detected Not detected, Equivocal [facility] Coronavirus OC43 Not detected Not detected, Equivocal [facility] Bordetella Pertussis Not detected Not detected, Equivocal [facility] Chlamydophila Pneumoniae Not detected Not detected, Equivocal [facility] Mycoplasma Pneumoniae Not detected Not detected, Equivocal [facility] Specimen Nasopharyngeal Narrative Performed At Other viruses and bacteria not targeted by this PCR panel cannot be excluded; [facility] therefore clinical correlation and follow up of serology, culture results, and [facility] other molecular studies is required. The results are not intended to be used as the sole means for clinical diagnosis or patient management decisions. This sample was tested at the [facility] using the Entrecard Respiratory Panel. It is FDA cleared and has been verified and approved by the [facility] for clinical use on nasal swab specimens. It is not FDA-cleared for use on bronchial wash/lavage samples. However, for this sample type, validation was performed and test characteristics were determined and approved, by [facility] laboratory for clinical use under the Clinical Laboratory Improvement Amendments (CLIA) of 1988 requirements. Therefore, FDA clearance is not required.This laboratory is CLIA-certified and [employer] (CAP)-accredited to perform high complexity testing. Performing Organization Address City/State/Zipcode Phone Number [address] [address] [facility] * Prepare RBC (06/23/2018 11:54 PM COIL REPAIR TECHNICIAN) CROSSMATCH COMPATIBLE SAFETRACE TX Unit ABO O Pos SAFETRACE TX UNIT NUMBER [id number] SAFETRACE TX Status TX_TIMEINCHART SAFETRACE TX Blood Bank Product RED BLOOD CELLS SAFETRACE TX PRODUCT CODE [id number] SAFETRACE TX CROSSMATCH COMPATIBLE SAFETRACE TX Unit ABO O Pos SAFETRACE TX UNIT NUMBER [id number] SAFETRACE TX Status TX_TIMEINCHART SAFETRACE TX Blood Bank Product RED BLOOD CELLS SAFETRACE TX PRODUCT CODE [id number] SAFETRACE TX Performing Organization Address City/[facility] Center[facility] Phone Number SAFET[place]ACE [place] * CT chest without IV contrast (06/23/2018 2:31 PM COIL REPAIR TECHNICIAN) Narrative Performed At FINAL REPORT [facility] CT of the Chest dated 06/23/2018 CLINICAL INFORMATION: abnormal CXR Comment:Axial images of the chest were obtained from thoracic inlet to the upper abdomen without intravenous contrast. This exam was performed according to our departmental dose-optimization program, which includes automated exposure control, adjustment of the mA and/or kV according to patient size and/or use of interactive reconstruction technique. Heart is in upper limits of normal in size.Great vessels are unremarkable. No adenopathy in the mediastinum or perihilar region. Trachea and mainstem bronchi are patent. There is small bilateral pleural effusion with bibasilar subsegmental atelectasis. Interstitial pulmonary disease is seen bilaterally with thickening of interlobar septi. Mild bronchiectasis is seen in both lungs. Visualized upper abdomen demonstrates diffusely decreased attenuation in the liver consistent with fatty hepatic infiltrate. Impression: 1. Bilateral pleural effusion with bibasilar subsegmental atelectasis. 2. Nonspecific interstitial pulmonary disease and mild bilateral bronchiectasis. 3. Fatty liver. Signed: Meka Madison MD Report Verified Date/Time:06/23/2018 15:49:51 Reading Location: [facility] C013Y CT Body Reading Room Procedure Note Interface, External Ris In - 06/23/2018 3:52 PM COIL REPAIR TECHNICIAN FINAL REPORT CT of the Chest dated 06/23/2018 CLINICAL INFORMATION: abnormal CXR Comment: Axial images of the chest were obtained from thoracic inlet to the upper abdomen without intravenous contrast. This exam was performed according to our departmental dose-optimization program, which includes automated exposure control, adjustment of the mA and/or kV according to patient size and/or use of interactive reconstruction technique. Heart is in upper limits of normal in size. Great vessels are unremarkable. No adenopathy in the mediastinum or perihilar region. Trachea and mainstem bronchi are patent. There is small bilateral pleural effusion with bibasilar subsegmental atelectasis. Interstitial pulmonary disease is seen bilaterally with thickening of interlobar septi. Mild bronchiectasis is seen in both lungs. Visualized upper abdomen demonstrates diffusely decreased attenuation in the liver consistent with fatty hepatic infiltrate. Impression: 1. Bilateral pleural effusion with bibasilar subsegmental atelectasis. 2. Nonspecific interstitial pulmonary disease and mild bilateral bronchiectasis. 3. Fatty liver. Signed: Meka Madison MD Report Verified Date/Time: 06/23/2018 15:49:51 Reading Location: [facility] C013Y CT Body Reading Room Performing Organization Address City/State/Zipcode Phone Number RIS * Blood Culture - Routine (Right Venipuncture) (06/23/2018 12:13 PM COIL REPAIR TECHNICIAN) Only the most recent of 2 results within the time period is included. Result No growth in 5 days [facility] Specimen Blood - Arm, Right Performing Organization Address City/[facility]/Zipcode Phone Number [facility] [address] [place] [address] [facility] * Urinalysis w/Microscopic + Reflex to Culture (06/22/2018 2:37 PM COIL REPAIR TECHNICIAN) Color, UA Yellow [facility] Clarity, UA Clear [facility] Specific [place], UA 1.002 1.001 - 1.035 [facility] pH, UA 8.0 5.0 - 8.0 [facility] Protein, UA Negative Negative [facility] Glucose, UA Negative Negative [facility] Ketones, UA 10 mg/dL (A) Negative [facility] Bilirubin, UA Negative Negative [facility] Blood, UA Negative Negative [facility] Nitrite, UA Negative Negative [facility] Leukocytes, UA Negative Negative [facility] Urobilinogen, UA 0.2 0.2 - 1.0 mg/dL [facility] RBC, UA 0 /HPF [facility] WBC, UA <1 /HPF [facility] Bacteria, UA Occasional [facility] Squam Epithel, UA 2 /HPF [facility] Crystals, Urine Rare [facility] Specimen Source [facility] Specimen Urine - Urine, Clean Catch Performing Organization Address City/[facility]/Zipcode Phone Number [facility] [address] [place] [address] [facility] * Transfuse Leuko-Red RBC (06/22/2018 5:06 AM COIL REPAIR TECHNICIAN) Only the most recent of 3 results within the time period is included. * CT abdomen/pelvis with IV contrast (06/21/2018 1:16 PM COIL REPAIR TECHNICIAN) Narrative Performed At FINAL REPORT [facility] CT abdomen and pelvis with contrast History: Anemia, weight loss, vomiting Comparison: none Technique: serial axial imaging was performed following up to 100cc of non ionic iodinated intravenous contrast as per departmental protocol.Multiplanar images are reconstructed and reviewed when indicated. This CT examination is performed using one or more of the following dose reduction techniques: Automated exposure control, adjustment of the mA and /or kV according to patient size, and/or use of iterative reconstruction technique. Findings: Visualized lung bases demonstrates subsegmental atelectasis. Unremarkable appearance of pancreas and spleen. Diffuse fatty infiltration of the liver. No definite hepatic mass. The hepatic contour appears unremarkable. No intrahepatic biliary dilation. The patient is status post cholecystectomy. Unremarkable appearance of adrenal glands, kidneys, ureters, and urinary bladder. . No small or large bowel obstruction. Questionable mild concentric thickening of the cecum. No pneumoperitoneum or fluid collection. Nonvisualized appendix, without secondary findings of acute appendicitis. No free fluid or lymphadenopathy. No abdominal aortic aneurysm. No aggressive osseous lesion. Impression: 1. Questionable mild concentric thickening of the cecum, without findings of perforation or abscess formation. This could represent focal colitis. However, given the clinical symptoms, suggest correlation with colonoscopy, if not recently performed. 2. Diffuse fatty infiltration of the liver. Signed: Fan Davis MD Report Verified Date/Time:06/21/2018 13:37:33 Reading Location: [address] Consult Reading Room Procedure Note Interface, External Ris In - 06/22/2018 10:39 PM COIL REPAIR TECHNICIAN FINAL REPORT CT abdomen and pelvis with contrast History: Anemia, weight loss, vomiting Comparison: none Technique: serial axial imaging was performed following up to 100cc of non ionic iodinated intravenous contrast as per departmental protocol. Multiplanar images are reconstructed and reviewed when indicated. This CT examination is performed using one or more of the following dose reduction techniques: Automated exposure control, adjustment of the mA and /or kV according to patient size, and/or use of iterative reconstruction technique. Findings: Visualized lung bases demonstrates subsegmental atelectasis. Unremarkable appearance of pancreas and spleen. Diffuse fatty infiltration of the liver. No definite hepatic mass. The hepatic contour appears unremarkable. No intrahepatic biliary dilation. The patient is status post cholecystectomy. Unremarkable appearance of adrenal glands, kidneys, ureters, and urinary bladder. . No small or large bowel obstruction. Questionable mild concentric thickening of the cecum. No pneumoperitoneum or fluid collection. Nonvisualized appendix, without secondary findings of acute appendicitis. No free fluid or lymphadenopathy. No abdominal aortic aneurysm. No aggressive osseous lesion. Impression: 1. Questionable mild concentric thickening of the cecum, without findings of perforation or abscess formation. This could represent focal colitis. However, given the clinical symptoms, suggest correlation with colonoscopy, if not recently performed. 2. Diffuse fatty infiltration of the liver. Signed: Fan Davis MD Report Verified Date/Time: 06/21/2018 13:37:33 Reading Location: [facility] C013X Ortho Consult Reading Room Performing Organization Address City/State/Zipcode Phone Number [employer] * Type and screen, automated (06/21/2018 12:00 PM COIL REPAIR TECHNICIAN) ABO/RH AUTOMATED (BEAKER) O POSITIVE [facility] Ab Scrn NEGATIVE [facility] Specimen Blood Performing Organization Address City/[facility] Cent[facility] Phone Number [facility] [address] [place] [address] MEDICAL CENTER * US abdomen complete (06/21/2018 8:25 AM COIL REPAIR TECHNICIAN) Narrative Performed At FINAL REPORT [employer] [facility] Complete Abdominal Ultrasound History: Leukopenia, abnormal liver function tests Comparison: none Findings: The liver demonstrates increased background echotexture.No hepatic mass or intrahepatic biliary dilation is seen.The patient is status post cholecystectomy.No sonographic Robles's sign.Common bile duct measures fourmm.Pancreas not well seen due to overlying bowel gas.Bilateral kidney demonstrates no hydronephrosis, shadowing calculus, or mass lesion.Right kidney measures 10.0 x 4.5 x 5.7cm. Left kidney measures 12.2 x 5.4 x 4.3cm.Normal size spleen measuring 11.9 cm in craniocaudal dimension.Normal caliber of the visualized abdominal aorta.No apparent filling defect in the visualized inferior vena cava. Impression: 1. Diffuse fatty infiltration of the liver. 2. No evidence of splenomegaly. Signed: Fan Davis MD Report Verified Date/Time:06/21/2018 08:41:18 Reading Location: [address] Ortho Consult Reading Room Procedure Note Interface, External Ris In - 06/21/2018 8:43 AM COIL REPAIR TECHNICIAN FINAL REPORT Complete Abdominal Ultrasound History: Leukopenia, abnormal liver function tests Comparison: none Findings: The liver demonstrates increased background echotexture. No hepatic mass or intrahepatic biliary dilation is seen. The patient is status post cholecystectomy. No sonographic Robles's sign. Common bile duct measures fourmm. Pancreas not well seen due to overlying bowel gas. Bilateral kidney demonstrates no hydronephrosis, shadowing calculus, or mass lesion. Right kidney measures 10.0 x 4.5 x 5.7cm. Left kidney measures 12.2 x 5.4 x 4.3cm. Normal size spleen measuring 11.9 cm in craniocaudal dimension. Normal caliber of the visualized abdominal aorta. No apparent filling defect in the visualized inferior vena cava. Impression: 1. Diffuse fatty infiltration of the liver. 2. No evidence of splenomegaly. Signed: Fan Davis MD Report Verified Date/Time: 06/21/2018 08:41:18 Reading Location: [facility] [id number] Ortho Consult Reading Room Performing Organization Address City/State/Zipcode Phone Number [facility] * Vitamin B12 and Folate (06/21/2018 5:48 AM COIL REPAIR TECHNICIAN) Vitamin B12 378 213 - 816 pg/mL [facility] Folate 4.3 (L) >=7.0 ng/mL [facility] Specimen Blood Performing Organization Address [facility]/Zipcode Phone Number [facility] [address] [place] [address] MEDICAL CENTER * Lipid panel (06/21/2018 5:48 AM COIL REPAIR TECHNICIAN) Triglycerides 89 mg/dL [facility] Cholesterol 104 mg/dL [facility] HDL 34 mg/dL [facility] LDL Calculated 52 mg/dL [facility] Specimen Blood Narrative Performed At Triglyceride Reference Range: [facility] Low Risk <150 [facility] [id number] High Risk 200-499 Very High Risk>=500 Cholesterol Reference Range: Low Risk <200 [id number] High Risk>240 HDL Cholesterol Reference Range: Low Risk >=60 High Risk <40 LDL Cholesterol Reference Range: Optimal<100 Near [id number] Very High >=190 Specimen slightly icteric Performing Organization Address City/[facility] [place] [address] [phone] [place] [address] * Occult blood, stool (06/21/2018 12:10 AM COIL REPAIR TECHNICIAN) Occult blood Negative Negative [facility] Specimen Stool - Stool Performing Organization Address City/[facility] Cent[facility]ode Phone Number [address] [address] [facility] * Peripheral Blood Smear - Path Review (06/20/2018 10:14 PM COIL REPAIR TECHNICIAN) RBC Morphology Polychromasia [facility] Anisocytosis [facility] Poikilocytosis Pathologist Review Cell counts confirmed. [facility] Pathologist: Lexy Ryan M.D. [facility] (electronic signature) [facility] Specimen Blood Performing Organization Address City/[facility]/Zipcode Phone Number [address] [address] [phone] [place] [address] * TSH/Free T4 If Indicated (06/20/2018 10:14 PM COIL REPAIR TECHNICIAN) TSH 0.75 0.35 - 4.94 uIU/mL [facility] Specimen Blood Performing Organization Address City/[facility]/Zipcode Phone Number [address] [address] MEDICAL CENTER * PT/aPTT (06/20/2018 10:14 PM COIL REPAIR TECHNICIAN) Protime 14.0 11.7 - 14.7 seconds [facility] INR 1.1 <=5.9 [facility] PTT 27.5 22.5 - 36.0 seconds [facility] Specimen Blood Narrative Performed At RECOMMENDED COUMADIN/WARFARIN INR THERAPY RANGES [facility] STANDARD DOSE: 2.0 - 3.0 Includes: PROPHYLAXIS for venous thrombosis, [facility] systemic embolization; TREATMENT for venous thrombosis and/or pulmonary embolus. HIGH RISK: Target INR is 2.5-3.5 for patients with mechanical heart valves. Performing Organization Address City/[facility] Centercode Phone Number [address] * Iron, TIBC, % sat. (without ferritin) (06/20/2018 10:14 PM COIL REPAIR TECHNICIAN) Iron 201.0 (H) 40.0 - 160.0 ug/dL [facility] TIBC 206 (L) 250 - 450 ug/dL [facility] Iron % Saturation 98 (H) 20 - 55 % [facility] Specimen Blood Performing Organization Address [facility] Cent[facility]ode Phone Number [address] * C-Reactive Protein (06/20/2018 10:14 PM COIL REPAIR TECHNICIAN) CRP 3.21 (H) 0.00 - 0.50 mg/dL [facility] Specimen Blood Performing Organization Address City/[facility]/Zipcode Phone Number [address] * Bilirubin, indirect (06/20/2018 10:14 PM COIL REPAIR TECHNICIAN) Bilirubin, Indirect 0.6 0.0 - 1.1 mg/dL [facility] Specimen Blood Performing Organization Address City/[facility] Cent[facility]ode Phone Number [phone] [place] [address] * Blood typing, automated (06/20/2018 10:14 PM COIL REPAIR TECHNICIAN) ABO/RH AUTOMATED (BEAKER) O POSITIVE [facility] Specimen Blood Performing Organization Address [facility] Centercomd Phone Number [address] * Reticulocyte count (06/20/2018 10:14 PM COIL REPAIR TECHNICIAN) % Retic 1.3 0.5 - 1.7 % [facility] Specimen Blood Performing Organization Address [facility] Phone Number [address] * Direct AHG (ANDREIA)/Direct Ge (06/20/2018 10:14 PM COIL REPAIR TECHNICIAN) Direct AHG-IGG NEGATIVE [facility] Direct AHG-C3B, C3D NEGATVIE [facility] Specimen Blood Performing Organization Address [facility] Number [address] * Anti-Nuclear Antibody (AYDEN) (06/20/2018 10:14 PM COIL REPAIR TECHNICIAN) AYDEN Negative Negative [facility] Specimen Blood Narrative Performed At Test performed by IFA method. [facility] Test performed by IFA method. [facility] Performing Organization Address [facility] Phone Number [address] * Lipase (06/20/2018 10:14 PM COIL REPAIR TECHNICIAN) Lipase 5 (L) 8 - 78 U/L [facility] Specimen Blood Performing Organization Address [facility] Phone Number [facility] [address] * Lactate dehydrogenase (LDH) (06/20/2018 10:14 PM COIL REPAIR TECHNICIAN) LDH 227 (H) 125 - 220 U/L [facility] Specimen Blood Performing Organization Address City/State/Zipcode Phone Number [address] * Hemoglobin A1c (06/20/2018 10:14 PM COIL REPAIR TECHNICIAN) Hemoglobin A1C 5.9 4.3 - 6.1 % [facility] Specimen Blood Performing Organization Address City/[facility]ode Phone Number [address] * Haptoglobin (06/20/2018 10:14 PM COIL REPAIR TECHNICIAN) Haptoglobin 67 14 - 258 mg/dL [facility] Specimen Blood Performing Organization Address City/[facility] Centercode Phone Number [address] * Ferritin (06/20/2018 10:14 PM COIL REPAIR TECHNICIAN) Ferritin 810 (H) 5 - 275 ng/mL [facility] Specimen Blood Performing Organization Address City/[facility]ode Phone Number [address] * Ketone, blood (06/20/2018 10:14 PM COIL REPAIR TECHNICIAN) Ketones, Blood 0.5 (H) <0.4 mmol/L [facility] Specimen Blood Performing Organization Address City/[facility] Centercode Phone Number [address] after 08/02/2017 Insurance Payer Benefit Subscriber ID Type Phone Address [facility] / [facility] H[facility]/POS CARE POS SELECT CHOICE Advance Directives For more information, please contact: [address] [address] Date Inactivated Comments Code Status Date Activated 06/27/2018 3:53 PM Full Code 06/20/2018 8:50 PM This code status was determined by: Patient
--- OUTSIDE RECORDS SUMMARY | 2018-08-03 06:54 | XMS REPORT | Continuity of Care Document ---
Author Author [facility] Interface Address Unknown Phone Unavailable Problems Problem Status Onset Date Classification Date Reported Comments Source Dehydration Active Problem 02/06/2018 [facility] Medications Medication Details Route Status Patient Instructions Ordering Provider Order Date Source Lisinopril 2.5 Mg Tablet, 0 Oral Daily Active 01/29/2018 [facility] Nebivolol Hcl (Bystolic) 10 Mg Tablet, 0 Oral Daily Active 01/29/2018 [facility] Insulin Aspart (Novolog) 100 Unit/1 Ml Cartridge Before Meals And At Bedtime Active [facility] Levothyroxine Sodium (Synthroid) 25 Mcg Tablet Today At 6:30AM Active [facility] Lisinopril 10 Mg Tablet Daily Active [facility] Metoclopramide Hcl (Reglan) 5 Mg Tablet Bedtime as needed for Nausea Active [facility] Nebivolol Hcl (Bystolic) 10 Mg Tablet Daily Active [facility] Pantoprazole Sodium (Protonix) 40 Mg Tablet. Daily Active [facility] Sucralfate 1 Gm Tablet Three Times A Day Active [facility] Triseba Daily Active [facility] Allergies, Adverse Reactions, Alerts Substance Category Reaction Severity Reaction type Status Date Reported Comments Source Penicillin Unknown Allergy to Substance Active 01/28/2018 [facility] Immunizations Immunization Date Given Site Status Last Updated Comments Source Results Order Name Results Value Reference Range Date Interpretation Comments Source Capillary blood glucose measurement by glucometer (mass/volume) Capillary blood glucose measurement by glucometer (mass/volume) 129 70 - 120 02/06/2018 [facility] Estimated glomerular filtration rate (GFR) determination Estimated glomerular filtration rate (GFR) determination null 60 02/06/2018 [facility] Glucose measurement Glucose measurement 166 74 - 118 02/06/2018 [facility] Serum or plasma anion gap Serum or plasma anion gap 13.2 8 - 16 02/06/2018 [facility] Serum or plasma calcium measurement (mass/volume) Serum or plasma calcium measurement (mass/volume) 9.0 8.4 - 10.2 02/06/2018 [facility] Serum or plasma carbon dioxide, total measurement (moles/volume) Serum or plasma carbon dioxide, total measurement (moles/volume) 27 22 - 29 02/06/2018 [facility] Serum or plasma chloride measurement (moles/volume) Serum or plasma chloride measurement (moles/volume) 103 98 - 107 02/06/2018 [facility] Serum or plasma creatinine measurement (mass/volume) Serum or plasma creatinine measurement (mass/volume) 0.60 0.57 - 1.11 02/06/2018 [facility] Serum or plasma magnesium measurement (mass/volume) Serum or plasma magnesium measurement (mass/volume) 1.6 1.3 - 2.1 02/06/2018 [facility] Serum or plasma potassium measurement (moles/volume) Serum or plasma potassium measurement (moles/volume) 3.2 3.5 - 5.1 02/06/2018 [facility] Serum or plasma sodium measurement (moles/volume) Serum or plasma sodium measurement (moles/volume) 140 136 - 145 02/06/2018 [facility] Serum or plasma urea nitrogen measurement (mass/volume) Serum or plasma urea nitrogen measurement (mass/volume) null 7 - 26 02/06/2018 [facility] Serum or plasma urea nitrogen/creatinine mass ratio Serum or plasma urea nitrogen/creatinine mass ratio 8 6 - 25 02/06/2018 [facility] Automated blood basophil count (count/volume) Automated blood basophil count (count/volume) 0.0 0.0 - 0.1 02/05/2018 [facility] Automated blood basophil count as percentage of total leukocytes Automated blood basophil count as percentage of total leukocytes 0.7 0.0 - 1.0 02/05/2018 [facility] Automated blood eosinophil count Automated blood eosinophil count 0.1 0.0 - 0.4 02/05/2018 [facility] Automated blood eosinophil count as percentage of total leukocytes Automated blood eosinophil count as percentage of total leukocytes 3.4 0.0 - 6.0 02/05/2018 [facility] Automated blood hematocrit (volume fraction) Automated blood hematocrit (volume fraction) 31.5 34.2 - 44.1 02/05/2018 [facility] Automated blood lymphocyte count as percentage ot total leukocytes Automated blood lymphocyte count as percentage ot total leukocytes 25.2 18.0 - 39.1 02/05/2018 [facility] Automated blood monocyte count as percentage of total leukocytes Automated blood monocyte count as percentage of total leukocytes 13.4 4.4 - 11.3 02/05/2018 [facility] Automated blood neutrophil count Automated blood neutrophil count 1.7 2.1 - 6.9 02/05/2018 [facility] Automated blood platelet count (count/volume) Automated blood platelet count (count/volume) 149 140 - 360 02/05/2018 [facility] Automated blood segmented neutrophil count as percentage of total leukocytes Automated blood segmented neutrophil count as percentage of total leukocytes 57.0 38.7 - 80.0 02/05/2018 [facility] Automated erythrocyte mean corpuscular hemoglobin (mass per erythrocyte) Automated erythrocyte mean corpuscular hemoglobin (mass per erythrocyte) 36.3 28 - 32 02/05/2018 [facility] Automated erythrocyte mean corpuscular hemoglobin concentration measurement (mass/volume) Automated erythrocyte mean corpuscular hemoglobin concentration measurement (mass/volume) 34.0 31 - 35 02/05/2018 [facility] Automated erythrocyte mean corpuscular volume Automated erythrocyte mean corpuscular volume 106.8 81 - 99 02/05/2018 [facility] Blood erythrocytes automated count (number/volume) Blood erythrocytes automated count (number/volume) 2.95 3.6 - 5.1 02/05/2018 [facility] Blood hemoglobin measurement (moles/volume) Blood hemoglobin measurement (moles/volume) 10.7 12.0 - 16.0 02/05/2018 [facility] Blood leukocytes automated count (number/volume) Blood leukocytes automated count (number/volume) 2.90 4.8 - 10.8 02/05/2018 [facility] Blood lymphocytes count (number/volume) Blood lymphocytes count (number/volume) 0.7 1.0 - 3.2 02/05/2018 [facility] Blood monocytes automated count (number/volume) Blood monocytes automated count (number/volume) 0.4 0.2 - 0.8 02/05/2018 [facility] Plasma globulin measurement (mass/volume) Plasma globulin measurement (mass/volume) 2.6 2.3 - 3.5 02/05/2018 [facility] Serum or plasma alanine aminotransferase measurement (enzymatic activity/volume) Serum or plasma alanine aminotransferase measurement (enzymatic activity/volume) 17 0 - 55 02/05/2018 [facility] Serum or plasma albumin measurement (mass/volume) Serum or plasma albumin measurement (mass/volume) 2.7 3.5 - 5.0 02/05/2018 [facility] Serum or plasma albumin/globulin mass ratio Serum or plasma albumin/globulin mass ratio 1.0 0.8 - 2.0 02/05/2018 [facility] Serum or plasma alkaline phosphatase measurement (enzymatic activity/volume) Serum or plasma alkaline phosphatase measurement (enzymatic activity/volume) 105 40 - 150 02/05/2018 [facility] Serum or plasma protein measurement (mass/volume) Serum or plasma protein measurement (mass/volume) 5.3 6.5 - 8.1 02/05/2018 [facility] Serum or plasma total bilirubin measurement (mass/volume) Serum or plasma total bilirubin measurement (mass/volume) 1.2 0.2 - 1.2 02/05/2018 [facility] Red Cell Distribution Width 13.2 11.7 - 14.4 02/05/2018 [facility] IM GRANULOCYTES % 0.3 0.0 - 1.0 02/05/2018 [facility] Absolute Immature Granulocyte (auto 0.01 0 - 0.1 02/05/2018 [facility] Aspartate Amino Transf (AST/SGOT) 12 5 - 34 02/05/2018 [facility] Arterial blood base excess by calculation Arterial blood base excess by calculation -2.0 -2 - 3 - 2 02/03/2018 [facility] Arterial blood bicarbonate measurement (moles/volume) Arterial blood bicarbonate measurement (moles/volume) 22 23 - 28 02/03/2018 [facility] Arterial blood oxygen saturation measurement Arterial blood oxygen saturation measurement 97.0 95 - 98 02/03/2018 [facility] Arterial blood pH measurement Arterial blood pH measurement 7.49 7.31 - 7.41 02/03/2018 [facility] Arterial Blood Partial Pressure CO2 29 41 - 51 02/03/2018 [facility] Arterial Blood Partial Pressure O2 83 80 - 105 02/03/2018 [facility] FiO2 32 02/03/2018 [facility] Blood cobalamin (vitamin B12) measurement (mass/volume) Blood cobalamin (vitamin B12) measurement (mass/volume) 964 213 - 816 02/03/2018 [facility] Serum or plasma ferritin measurement (mass/volume) Serum or plasma ferritin measurement (mass/volume) 390.90 4.63 - 204.00 02/03/2018 [facility] Serum or plasma folate measurement (mass/volume) Serum or plasma folate measurement (mass/volume) 31.9 7.0 - 15.4 02/03/2018 [facility] Serum or plasma iron binding capacity measurement (mass/volume) Serum or plasma iron binding capacity measurement (mass/volume) 179 261 - 478 02/03/2018 [facility] Serum or plasma iron measurement (mass/volume) Serum or plasma iron measurement (mass/volume) 136 50 - 170 02/03/2018 [facility] Serum or plasma iron saturation measurement (mass fraction) Serum or plasma iron saturation measurement (mass fraction) 76 15 - 50 02/03/2018 [facility] Serum or plasma transferrin measurement (mass/volume) Serum or plasma transferrin measurement (mass/volume) 128 180 - 382 02/03/2018 [facility] Automated reticulocyte count as percentage of total erythrocytes Automated reticulocyte count as percentage of total erythrocytes 2.9 0.8 - 2.2 02/02/2018 [facility] Serum or plasma thyrotropin measurement by detection limit <=0.005 miu/l (units/volume) Serum or plasma thyrotropin measurement by detection limit <=0.005 miu/l (units/volume) 0.663 0.350 - 4.940 02/02/2018 [facility] Osmolality of Serum or Plasma Osmolality of Serum or Plasma 300 275 - 295 02/01/2018 [facility] Serum or plasma thyroxine (T4) free measurement (mass/volume) Serum or plasma thyroxine (T4) free measurement (mass/volume) 1.19 0.9 - 1.8 02/01/2018 [facility] Hemoglobin A1c Percent 6.9 4.0 - 7.0 02/01/2018 [facility] Lactic Acid Level 18.7 4.5 - 19.8 02/01/2018 [facility] Amorphous sediment detection in urine sediment by light microscopy Amorphous sediment detection in urine sediment by light microscopy FEW FEW 02/01/2018 [facility] Automated urine sediment leukocyte count by microscopy (number/high power field) Automated urine sediment leukocyte count by microscopy (number/high power field) null 0 - 5 02/01/2018 [facility] Bacteria detection in urine sediment by light microscopy Bacteria detection in urine sediment by light microscopy NONE NONE 02/01/2018 [facility] Epithelial cells detection in urine sediment by light microscopy Epithelial cells detection in urine sediment by light microscopy RARE NONE 02/01/2018 [facility] Erythrocytes detection in urine sediment by light microscopy Erythrocytes detection in urine sediment by light microscopy null 0 - 5 02/01/2018 [facility] Specific gravity of Urine by Test strip Specific gravity of Urine by Test strip 1.030 1.010 - 1.025 02/01/2018 [facility] Urine clarity Urine clarity CLEAR CLEAR 02/01/2018 [facility] Urine color determination Urine color determination YELLOW YELLOW 02/01/2018 [facility] Urine erythrocytes detection Urine erythrocytes detection 1+ NEGATIVE 02/01/2018 [facility] Urine glucose detection Urine glucose detection 3+ NEGATIVE 02/01/2018 [facility] Urine ketones detection by automated test strip Urine ketones detection by automated test strip 3+ NEGATIVE 02/01/2018 [facility] Urine leukocyte esterase detection by dipstick Urine leukocyte esterase detection by dipstick NEGATIVE NEGATIVE 02/01/2018 [facility] Urine nitrite detection Urine nitrite detection NEGATIVE NEGATIVE 02/01/2018 [facility] Urine pH measurement by automated test strip Urine pH measurement by automated test strip 6 5 - 7 02/01/2018 [facility] Urine protein measurement by test strip (mass/volume) Urine protein measurement by test strip (mass/volume) 2+ NEGATIVE 02/01/2018 [facility] Urine total bilirubin measurement (mass/volume) Urine total bilirubin measurement (mass/volume) NEGATIVE NEGATIVE 02/01/2018 [facility] Urine urobilinogen measurement by test strip (mass/volume) Urine urobilinogen measurement by test strip (mass/volume) 0.2 0.2 - 1 02/01/2018 [facility] Osmolality of Serum or Plasma by calculation Osmolality of Serum or Plasma by calculation 289 278 - 305 02/01/2018 [facility] Serum or plasma conjugated bilirubin measurement (mass/volume) Serum or plasma conjugated bilirubin measurement (mass/volume) 0.5 0.0 - 0.5 02/01/2018 [facility] Clostridium difficile A and B toxin assay Clostridium difficile A and B toxin assay NEGATIVE NEGATIVE 01/31/2018 [facility] Stool lactoferrin detection Stool lactoferrin detection NEGATIVE NEGATIVE 01/31/2018 [facility] Serum hepatitis C virus antibody detection Serum hepatitis C virus antibody detection null 01/31/2018 [facility] Serum or plasma hepatitis A virus IgM antibody detection by immunoassay Serum or plasma hepatitis A virus IgM antibody detection by immunoassay Negative 01/31/2018 [facility] Serum or plasma hepatitis B virus core IgM antibody detection by immunoassay Serum or plasma hepatitis B virus core IgM antibody detection by immunoassay Negative 01/31/2018 [facility] Serum or plasma hepatitis B virus surface antigen detection by immunoassay Serum or plasma hepatitis B virus surface antigen detection by immunoassay Negative 01/31/2018 [facility] INR in Platelet poor plasma by Coagulation assay INR in Platelet poor plasma by Coagulation assay 0.96 01/30/2018 [facility] Prothrombin time (PT) in platelet poor plasma by coagulation assay Prothrombin time (PT) in platelet poor plasma by coagulation assay 13.7 11.9 - 14.5 01/30/2018 [facility] Serum or plasma creatine kinase MB measurement (mass/volume) Serum or plasma creatine kinase MB measurement (mass/volume) 0.30 0 - 5.0 01/29/2018 [facility] Serum or plasma creatine kinase measurement (enzymatic activity/volume) Serum or plasma creatine kinase measurement (enzymatic activity/volume) 21 29 - 168 01/29/2018 [facility] Troponin I measurement by highly sensitive enzyme immunoassay Troponin I measurement by highly sensitive enzyme immunoassay null 0 - 0.300 01/29/2018 [facility] Serum or plasma amylase measurement (enzymatic activity/volume) Serum or plasma amylase measurement (enzymatic activity/volume) 26 25 - 125 01/28/2018 [facility] Serum or plasma lipase measurement (enzymatic activity/volume) Serum or plasma lipase measurement (enzymatic activity/volume) 5 8 - 78 01/28/2018 [facility] Blood culture Blood culture NO GROWTH AFTER 5 DAYS, FINAL REPORT 01/01/2018 [facility] Vital Signs Vital Sign Value Date Comments Source Encounters Location Location Details Encounter Type Encounter Number Reason For Visit Attending Provider ADM Date DC Date Status Source Registered Clinic [id number] MARILUZ JAY 06/02/2017 [facility] Discharged Inpatient (obs) [id number] KARISHMA YEAGER MD 01/02/2018 01/04/2018 [facility] Discharged Inpatient [id number] ERA OMALLEY MD 01/31/2018 02/06/2018 [facility] Procedures Procedure Code Date Perfomer Comments Source Colonoscopy with polypectomy [id number] 01/31/2018 SOUZA [facility] Computed tomography of abdomen and pelvis with contrast [id number] 01/30/2018 [facility] Magnetic resonance cholangiopancreatography (MRCP) without contrast [id number] 01/29/2018 [facility] Computed tomography of abdomen and pelvis with contrast [id number] 01/03/2018 [facility] US abdomen complete [id number] 01/03/2018 [facility] US Abdomen limited [id number] 06/02/2017 [facility]
[2018-08-03 07:19] LABS: BASOPHILS # (AUTO) 0.1 (0.0-0.1); EOSINOPHILS % 0.2 % (0.0-6.0); HEMATOCRIT 43.5 % (34.2-44.1); HEMOGLOBIN 14.6 g/dL (12.0-16.0); LYMPHOCYTES # (AUTO) 1.1 (1.0-3.2); LYMPHOCYTES % 17.9 % (18.0-39.1); MEAN CORPUSCULAR HEMOGLOBIN 34.1 pg (28-32); MEAN CORPUSCULAR HGB CONC 33.6 g/dL (31-35); MEAN CORPUSCULAR VOLUME 101.6 fL (81-99); MONOCYTES # (AUTO) 0.5 (0.2-0.8); MONOCYTES % 7.8 % (4.4-11.3); NEUTROPHILS # (AUTO) 4.3 (2.1-6.9); NEUTROPHILS % 72.8 % (38.7-80.0); PLATELET COUNT 234 x10e3/uL (140-360); RED BLOOD COUNT 4.28 x10e6/uL (3.6-5.1); RED CELL DISTRIBUTION WIDTH 17.1 % (11.7-14.4)
[2018-08-03 07:40] LABS: ALANINE AMINOTRANSFERASE 119 IU/L (0-55); ALBUMIN 3.7 g/dL (3.5-5.0); ALBUMIN/GLOBULIN RATIO 0.9 (0.8-2.0); ALKALINE PHOSPHATASE 264 IU/L (40-150); ANION GAP 13.8 mmol/L (8-16); BLOOD UREA NITROGEN 9 mg/dL (7-26); BUN/CREATININE RATIO 14 (6-25); CALCIUM 10.2 mg/dL (8.4-10.2); CARBON DIOXIDE 28 mmol/L (22-29); CHLORIDE 102 mmol/L (98-107); CREATININE, SERUM 0.65 mg/dL (0.57-1.11); EST GLOMERULAR FILTRATION RATE > 60 ML/MIN (60-); POTASSIUM 3.8 mmol/L (3.5-5.1); SODIUM 140 mmol/L (136-145)
[2018-08-03 07:42] LABS: GLUCOSE 40 mg/dL (74-118)
[2018-08-03] MEDS ORDERED: DEXTROSE 50% SYRINGE 50 ML IV STA (07:44)
[2018-08-03] MEDS: CEFTRIAXONE SOD 1 GM/NS 50 ML 50 ML IV SCH (07:55)
--- NOTE | 2018-08-03 08:00 | NUR ---
Bedside rounds completed with Enriqueta GOINS, ISADORA.
[2018-08-03] MEDS ORDERED: HYDROCODONE/CHLORPHENIRAMINE 5 ML LIQCR PO STA (08:02)
--- NOTE | 2018-08-03 08:05 | Diagnostic Imaging Report ---
EXAM: CHEST 2 VIEWS INDICATION: Pneumonia. COMPARISON: Chest radiograph 02/05/2018. FINDINGS: LINES/TUBES: Interval removal of right-sided PICC. LUNGS: There is central vascular congestion without evidence of pulmonary edema. There is linear subsegmental atelectasis in the right lower lung. Mild patchy bibasilar opacities. PLEURA: No effusions or pneumothorax. HEART AND MEDIASTINUM: Stable cardiomediastinal silhouette. BONES AND SOFT TISSUES: No acute osseous abnormality. UPPER ABDOMEN: Surgical clips project over the upper abdomen. IMPRESSION: Mild patchy bibasilar opacities, likely atelectasis. No evidence of lobar pneumonia. Central vascular congestion without pulmonary edema. Signed by: Dr. Jonatan Rendon MD on 08/03/2018 8:02 AM
[2018-08-03] MEDS: AZITHROMYCIN 500MG/NS 250 ML 250 ML IV SCH (08:09)
[2018-08-03] MEDS: SODIUM CHLORIDE 0.9% 1000ML 1,000 ML IV SCH ×3 (08:09→14:30)
[2018-08-03] MEDS ORDERED: ALBUTEROL SULF 0.083% NEB SOLN 3 ML NEB NEB STA (08:16)
[2018-08-03] MEDS ORDERED: ALBUTEROL/IPRATROPIUM 3 ML NEB NEB ONE (08:30)
[2018-08-03] MEDS ORDERED: METHYLPREDNISOLONE SOD SUCC 125 MG/2ML VIAL IV ONE (08:30)
--- NOTE | 2018-08-03 08:32 | NUR ---
Pt's meal is at bedside and placed within reach. Pt is in no acute distress at this time.
[2018-08-03 08:37] LABS: CREATINE KINASE MB 0.6 ng/mL (0-5.0)
--- NOTE | 2018-08-03 09:10 | NUR ---
Pt's BGL obtained utilizing her glucometer. Pt is in no acute distress at this time.
[2018-08-03] MEDS ORDERED: DEXTROSE 50% SYRINGE 50 ML IV PRN (10:15)
[2018-08-03] MEDS: IPRATROPIUM BROMIDE 0.02% 2.5 ML NEB NEB SCH ×2 (11:00→19:32)
[2018-08-03] MEDS: ALBUTEROL SULF 0.083% NEB SOLN 3 ML NEB NEB SCH ×4 (11:00→19:32)
--- OUTSIDE RECORDS SUMMARY | 2018-08-03 11:40 | XMS REPORT | Clinical Summary ---
Author Author JANINE [facility] Address Unknown Phone Unavailable Care Team Providers Care Chain Carrier Name Role Phone PCP Unavailable Allergies Comments [...] mellitus with hyperglycemia (HCC); Essential hypertension 06/20/2018 [facility] Internal Medicine - Encounter 06/27/2018 06/20/2018 Travel [...] Taken Vital Sign Reading 06/27/2018 11:07 AM [facility] Blood Pressure 112/57 06/27/2018 11:07 AM [facility] Pulse 89 06/27/2018 11:07 AM [facility] Temperature 37.1 C (98.7 F) 06/27/2018 11:07 AM [facility] Respiratory Rate 18 06/27/2018 11:07 AM [facility] Oxygen Saturation 91% 06/26/2018 7:56 PM [facility] Inhaled Oxygen 21% Concentration 06/27/2018 6:00 AM [facility] Weight 66.7 kg (147 lb) 06/20/2018 8:56 PM [facility] Height 162.6 cm (5' 4") 06/27/2018 6:00 AM [facility] Body Mass Index 25.23 Plan of Treatment Not on file Procedures Comments Procedure Name Priority Date/Time Associated Diagnosis RHYTHM STRIP - SCAN 07/01/2018 10:10 AM [facility] POCT-GLUCOSE METER Routine 06/27/2018 12:26 PM [facility] XR CHEST 1 VIEW Routine 06/27/2018 PORTABLE/BEDSIDE 8:59 AM [facility] POCT-GLUCOSE METER Routine 06/27/2018 7:29 AM [facility] CBC W/PLT COUNT & AUTO Routine 06/27/2018 DIFFERENTIAL 4:47 AM [facility] B-TYPE NATRIURETIC FACTOR Routine 06/27/2018 (BNP) 4:47 AM [facility] CBC W/PLT COUNT & AUTO Routine 06/27/2018 DIFFERENTIAL 4:47 AM [facility] COMPREHENSIVE METABOLIC Routine 06/27/2018 PANEL 4:47 AM [facility] ECHOCARDIOGRAM REPORT - 06/26/2018 SCAN 9:22 PM [facility] POCT-GLUCOSE METER Routine 06/26/2018 9:08 PM [facility] VANCOMYCIN LEVEL, TROUGH Timed 06/26/2018 4:13 PM [facility] POCT-GLUCOSE METER Routine 06/26/2018 3:12 PM [facility] POCT-GLUCOSE METER Routine 06/26/2018 2:18 PM [facility] REPORT OF PROCEDURE - 06/26/2018 ENDOSCOPY URL 1:37 PM [facility] REPORT OF PROCEDURE - 06/26/2018 ENDOSCOPY URL 1:31 PM [facility] TISSUE EXAM AP Routine 06/26/2018 1:00 PM [facility] COLONOSCOPY,POLYPECTOMY 06/26/2018 Iron deficiency anemia, 11:01 AM [facility] unspecified iron deficiency anemia type Special Needs egd/colon w/ anes UPPER ENDOSCOPY,BIOPSY 06/26/2018 Iron deficiency anemia, 11:01 AM [facility] unspecified iron deficiency anemia type Special Needs egd/colon w/ anes POCT-GLUCOSE METER Routine 06/26/2018 7:13 AM [facility] CBC W/PLT COUNT & AUTO Routine 06/26/2018 DIFFERENTIAL 4:31 AM [facility] HEPATIC FUNCTION PANEL Routine 06/26/2018 4:31 AM [facility] PHOSPHORUS Routine 06/26/2018 4:31 AM [facility] MAGNESIUM Routine 06/26/2018 4:31 AM [facility] BASIC METABOLIC PANEL (7) Routine 06/26/2018 4:31 AM [facility] CBC W/PLT COUNT & AUTO Routine 06/26/2018 DIFFERENTIAL 4:31 AM [facility] POCT-GLUCOSE METER Routine 06/25/2018 9:26 PM [facility] POCT-GLUCOSE METER Routine 06/25/2018 4:16 PM [facility] POCT-GLUCOSE METER Routine 06/25/2018 1:06 PM [facility] 2D ECHO W/ DOPPLER SCOTTY 06/25/2018 (CW/PW/COLOR) 11:46 AM [facility] POCT-GLUCOSE METER Routine 06/25/2018 8:50 AM [facility] XR CHEST 1 VIEW SCOTTY 06/25/2018 PORTABLE/BEDSIDE 6:50 AM [facility] CBC W/PLT COUNT & AUTO Routine 06/25/2018 DIFFERENTIAL 4:50 AM [facility] HEPATIC FUNCTION PANEL Routine 06/25/2018 4:50 AM [facility] B-TYPE NATRIURETIC FACTOR Routine 06/25/2018 (BNP) 4:50 AM [facility] PHOSPHORUS Routine 06/25/2018 4:50 AM [facility] MAGNESIUM Routine 06/25/2018 4:50 AM [facility] BASIC METABOLIC PANEL (7) Routine 06/25/2018 4:50 AM [facility] CBC W/PLT COUNT & AUTO Routine 06/25/2018 DIFFERENTIAL 4:50 AM [facility] LACTIC ACID, VENOUS Routine 06/25/2018 4:50 AM [facility] POCT-GLUCOSE METER Routine 06/24/2018 9:48 PM [facility] POCT-GLUCOSE METER Routine 06/24/2018 6:13 PM [facility] TRANSFUSION SERVICE 06/24/2018 REPORT - SCAN 6:03 PM [facility] POCT-GLUCOSE METER Routine 06/24/2018 1:08 PM [facility] LACTIC ACID, VENOUS STAT 06/24/2018 12:14 PM [facility] LACTIC ACID, VENOUS STAT 06/24/2018 9:25 AM [facility] POCT-GLUCOSE METER Routine 06/24/2018 7:57 AM [facility] RAPID INFLUENZA A&B Routine 06/24/2018 SCREEN 6:41 AM [facility] PROCALCITONIN STAT 06/24/2018 6:36 AM [facility] RESPIRATORY PANEL [facility] Routine 06/24/2018 6:32 AM [facility] RESPIRATORY PANEL [facility] Routine 06/24/2018 5:09 AM [facility] CBC W/PLT COUNT & AUTO Routine 06/24/2018 DIFFERENTIAL 4:50 AM [facility] LACTIC ACID, VENOUS Routine 06/24/2018 4:50 AM [facility] PHOSPHORUS Routine 06/24/2018 4:50 AM [facility] MAGNESIUM Routine 06/24/2018 4:50 AM [facility] BASIC METABOLIC PANEL (7) Routine 06/24/2018 4:50 AM [facility] CBC W/PLT COUNT & AUTO Routine 06/24/2018 DIFFERENTIAL 4:50 AM [facility] B-TYPE NATRIURETIC FACTOR Routine 06/24/2018 (BNP) 4:50 AM [facility] PREPARE RBC Routine 06/23/2018 11:54 PM [facility] POCT-GLUCOSE METER Routine 06/23/2018 10:42 PM [facility] TRANSFUSION SERVICE 06/23/2018 REPORT - SCAN 6:13 PM [facility] POCT-GLUCOSE METER Routine 06/23/2018 4:[address] CHEST WITHOUT IV SCOTTY 06/23/2018 CONTRAST 2:31 PM [facility] XR CHEST 1 VIEW SCOTTY 06/23/2018 PORTABLE/BEDSIDE 1:05 PM [facility] POCT-GLUCOSE METER Routine 06/23/2018 12:45 PM [facility] BLOOD CULTURE Routine 06/23/2018 12:13 PM [facility] BLOOD CULTURE Routine 06/23/2018 11:53 AM [facility] POCT-GLUCOSE METER Routine 06/23/2018 7:27 AM [facility] CBC W/PLT COUNT & AUTO Routine 06/23/2018 DIFFERENTIAL 5:33 AM [facility] PHOSPHORUS Routine 06/23/2018 5:33 AM [facility] MAGNESIUM Routine 06/23/2018 5:33 AM [facility] BASIC METABOLIC PANEL (7) Routine 06/23/2018 5:33 AM [facility] CBC W/PLT COUNT & AUTO Routine 06/23/2018 DIFFERENTIAL 5:33 AM [facility] POCT-GLUCOSE METER Routine 06/22/2018 8:59 PM [facility] TRANSFUSION SERVICE 06/22/2018 REPORT - SCAN 6:01 PM [facility] POCT-GLUCOSE METER Routine 06/22/2018 4:58 PM [facility] URINALYSIS W/ REFLEX Routine 06/22/2018 URINE CULTURE 2:37 PM [facility] POCT-GLUCOSE METER Routine 06/22/2018 7:29 AM [facility] CBC W/PLT COUNT & AUTO Routine 06/22/2018 DIFFERENTIAL 6:55 AM [facility] HEPATIC FUNCTION PANEL Routine 06/22/2018 6:55 AM [facility] PHOSPHORUS Routine 06/22/2018 6:55 AM [facility] MAGNESIUM Routine 06/22/2018 6:55 AM [facility] CBC W/PLT COUNT & AUTO Routine 06/22/2018 DIFFERENTIAL 6:55 AM [facility] BASIC METABOLIC PANEL (7) Routine 06/22/2018 6:55 AM [facility] TRANSFUSE LEUKO-REDUCED Routine 06/22/2018 RED BLOOD CELLS 5:06 AM [facility] POCT-GLUCOSE METER Routine 06/21/2018 10:09 PM [facility] PHOSPHORUS Routine 06/21/2018 7:33 PM [facility] MAGNESIUM Routine 06/21/2018 7:33 PM [facility] BASIC METABOLIC PANEL (7) Routine 06/21/2018 7:33 PM [facility] TRANSFUSE LEUKO-REDUCED Routine 06/21/2018 RED BLOOD CELLS 6:42 PM [facility] TRANSFUSION SERVICE 06/21/2018 REPORT - SCAN 6:01 PM [facility] POCT-GLUCOSE METER Routine 06/21/2018 1:[address] ABDOMEN/PELVIS WITH IV SCOTTY 06/21/2018 CONTRAST 1:16 PM [facility] TYPE AND SCREEN, SCOTTY 06/21/2018 AUTOMATED 12:00 PM [facility] US ABDOMEN COMPLETE Routine 06/21/2018 8:25 AM [facility] POCT-GLUCOSE METER Routine 06/21/2018 7:52 AM [facility] CBC W/PLT COUNT & AUTO Routine 06/21/2018 DIFFERENTIAL 5:48 AM [facility] PHOSPHORUS Routine 06/21/2018 5:48 AM [facility] MAGNESIUM Routine 06/21/2018 5:48 AM [facility] BASIC METABOLIC PANEL (7) Routine 06/21/2018 5:48 AM [facility] CBC W/PLT COUNT & AUTO Routine 06/21/2018 DIFFERENTIAL 5:48 AM [facility] HEPATIC FUNCTION PANEL Routine 06/21/2018 5:48 AM [facility] LIPID PANEL Routine 06/21/2018 5:48 AM [facility] VITAMIN B12 AND FOLATE Routine 06/21/2018 5:48 AM [facility] OCCULT BLOOD, STOOL Routine 06/21/2018 12:10 AM [facility] BLOOD TYPING, AUTOMATED Routine 06/20/2018 10:14 PM [facility] DIRECT AHG (ANDREIA)/DIRECT Routine 06/20/2018 GE 10:14 PM [facility] BILIRUBIN, INDIRECT Routine 06/20/2018 10:14 PM [facility] LIPASE Routine 06/20/2018 10:14 PM [facility] PHOSPHORUS Routine 06/20/2018 10:14 PM [facility] PT/APTT Routine 06/20/2018 10:14 PM [facility] HEMOGLOBIN A1C Routine 06/20/2018 10:14 PM [facility] TSH/FREE T4 IF INDICATED Routine 06/20/2018 10:14 PM [facility] RETICULOCYTE COUNT Routine 06/20/2018 10:14 PM [facility] HAPTOGLOBIN Routine 06/20/2018 10:14 PM [facility] LACTATE DEHYDROGENASE Routine 06/20/2018 (LDH) 10:14 PM [facility] IRON, TIBC, % SAT. Routine 06/20/2018 (WITHOUT FERRITIN) 10:14 PM [facility] FERRITIN Routine 06/20/2018 10:14 PM [facility] PERIPHERAL BLOOD SMEAR - Routine 06/20/2018 PATHOLOGIST REVIEW 10:14 PM [facility] LACTIC ACID, VENOUS Routine 06/20/2018 10:14 PM [facility] KETONE, BLOOD Routine 06/20/2018 10:14 PM [facility] ANTI-NUCLEAR ANTIBODY Routine 06/20/2018 (AYDEN) 10:14 PM [facility] C-REACTIVE PROTEIN Routine 06/20/2018 10:14 PM [facility] POCT-GLUCOSE METER Routine 06/20/2018 10:12 PM [facility] XR CHEST 1 VIEW SCOTTY 06/20/2018 PORTABLE/BEDSIDE 9:34 PM [facility] CBC W/PLT COUNT & AUTO STAT 06/20/2018 DIFFERENTIAL 4:28 PM [facility] BASIC METABOLIC PANEL (7) STAT 06/20/2018 4:28 PM [facility] CBC W/PLT COUNT & AUTO STAT 06/20/2018 DIFFERENTIAL 4:28 PM [facility] after 08/02/2017 Results * RHYTHM STRIP - SCAN (07/01/2018 10:10 AM [facility]) Narrative Performed At * POC-Glucose meter (06/27/2018 12:26 PM [facility]) Only the most recent of 25 results within the time period is included. POC-Glucose Meter 178 (H)Comment: TESTED AT 70 - 110 mg/dL [facility] [address] [facility] [address] Specimen Blood Performing Organization Address City/State/Zipcode Phone Number [facility] [address] [place] [address] [facility] * XR chest 1 view portable / bedside (06/27/2018 8:59 AM [facility]) Only the most recent of 4 results within the time period is included. Narrative Performed At FINAL REPORT [facility] Portable chest. CLINICAL HISTORY: pulmonary edema, pna. [...] MD Report Verified Date/Time:06/27/2018 11:13:29 Reading Location: [facility] B1 C013Y CT Body Reading Room Procedure Note Interface, External Ris In - 06/27/2018 11:15 AM [facility] FINAL REPORT Portable chest. CLINICAL HISTORY: pulmonary [...] Report Verified Date/Time: 06/27/2018 11:13:29 Reading Location: [facility] C013Y CT Body Reading Room Performing Organization Address City/State/Zipcode Phone Number [facility] * CBC with platelet count + automated diff (06/27/2018 4:47 AM [facility]) Only the most recent of 8 results within the time period is included. WBC 3.7 3.5 - 10.5 K/L [facility] RBC 3.35 (L) 3.93 - 5.22 M/L [facility] Hemoglobin 9.4 (L) 11.2 - 15.7 GM/DL [facility] Hematocrit 31.4 (L) 34.1 - 44.9 % [facility] MCV 93.7 79.4 - 94.[address] [facility] MCH 28.1 25.6 - 32.[address] [facility] MCHC 29.9 (L) 32.2 - 35.5 GM/DL [facility] RDW 27.9 (H) 11.7 - 14.4 % [facility] Platelets 253 150 - 450 K/CU MM [facility] MPV 11.2 9.4 - 12.[address] [facility] nRBC 0 0 - 0 /[address] [facility] % Neutros 68 % [facility] % Lymphs 21 % [facility] % Monos 7 % [facility] % Eos 2 % [facility] % Baso 1 % [facility] # Neutros 2.54 1.56 - 6.13 K/L [facility] # Lymphs 0.79 (L) 1.18 - 3.74 K/L [facility] # Monos 0.27 0.24 - 0.36 K/L [facility] # Eos 0.08 0.04 - 0.36 K/L [facility] # Baso 0.02 0.01 - 0.08 K/L [facility] Immature 0 0 - 1 % [facility] Specimen Blood - Arm, Left Performing Organization Address City/[facility] Phone Number [address] * B-type Natriuretic Factor (BNP) (06/27/2018 4:47 AM [facility]) Only the most recent of 3 results within the time period is included. BNP 141 (H) 0 - 100 pg/mL [facility] Specimen Blood - Arm, Left Performing Organization Address City/[facility]/Zipcode Phone Number [place] [phone] [place] [address] * Comprehensive metabolic panel (06/27/2018 4:47 AM [facility]) Protein, Total 5.6 (L) 6.0 - 8.3 gm/dL [facility] Albumin 3.1 (L) 3.5 - 5.0 g/dL [facility] Alkaline Phosphatase 136 40 - 150 U/L [facility] Total Bilirubin 1.8 (H) 0.2 - 1.2 mg/dL [facility] Sodium 135 (L) 136 - 145 meq/L [facility] Potassium 3.1 (L) 3.5 - 5.1 meq/L [facility] Chloride 98 98 - 107 meq/L [facility] CO2 26 22 - 29 meq/L [facility] BUN 3 (L) 7 - 21 mg/dL [facility] Creatinine 0.57 0.57 - 1.25 mg/dL [facility] Glucose 141 (H) 70 - 105 mg/dL [facility] Calcium 8.7 8.4 - 10.2 mg/dL [facility] AST 32 5 - 34 U/L [facility] ALT 12 6 - 55 U/L [facility] EGFR 112Comment: ESTIMATED GFR IS mL/min/1.73 sq m [facility] NOT ACCURATE CREATININE [facility] CLEARANCE IN PREDICTING GLOMERULAR FILTRATION RATE. ESTIMATED GFR IS NOT APPLICABLE FOR DIALYSIS PATIENTS. Specimen Blood - Arm, Left Performing Organization Address City/[facility] [place] [address] [facility] * ECHOCARDIOGRAM REPORT - SCAN (06/26/2018 9:22 PM [facility]) Narrative Performed At * Vancomycin level, trough (06/26/2018 4:13 PM [facility]) Vancomycin Tr 11.6 10.0 - 20.0 ug/mL [facility] Specimen Blood - Arm, Right Performing Organization Address City/[facility] Hospitalcode Phone Number [facility] [address] [place] [address] [facility] * REPORT OF PROCEDURE - ENDOSCOPY URL (06/26/2018 1:37 PM [facility]) Narrative Performed At * REPORT OF PROCEDURE - ENDOSCOPY URL (06/26/2018 1:31 PM [facility]) Narrative Performed At * Tissue Exam (06/26/2018 1:00 PM [facility]) Case Report Surgical Pathology [facility] Report [facility] Case: [id number] Authorizing Provider:Mali SyedJAYollected: 06/26/2018 1300 Ordering Location: [address] Received: 06/26/2018 1603 Service Pathologist: Juliann Muñiz MD Specimens: A) - Small Bowel, NOS, R/O celiac disease B) - Stomach, R/O H. pylori C) - Polyp, Colon - Left/Descending DIAGNOSIS A. SMALL BOWEL, BIOPSY: [facility] - DUODENAL MUCOSA WITH [facility] PRESERVED VILLOUS ARCHITECTURE AND NO SIGNIFICANT DIAGNOSTIC ALTERATIONS B. STOMACH, BIOPSY: - OXYNTIC MUCOSA WITH NO SIGNIFICANT DIAGNOSTIC ALTERATIONS - NEGATIVE FOR HELICOBACTER PYLORI - NEGATIVE FOR DYSPLASIA OR CARCINOMA C. COLON, LEFT/DESCENDING, POLYPECTOMY - TUBULAR ADENOMA Signing Pathologist Direct Phone Line: [phone] CPT Code(s) 45434 X3, [address] [facility] CLINICAL HISTORY Iron deficiency anemia, rule [facility] out celiac disease, rule out [facility] H. Pylori SPECIMEN SOURCE A. Small bowel biopsy. B. [facility] Stomach biopsy. C. Left [facility] descending colon polyp GROSS DESCRIPTION Specimen is received in three [facility] containers of formalin all [facility] labeled with the patient's information. Specimen A: [...] MICROSCOPIC DESCRIPTION A. Section shows pieces of [facility] duodenal mucosa with [facility] unremarkable morphology and preserved villous architecture. Plasma [...] carcinoma. SPECIAL STUDIES The interpretation of this [facility] case included the use of [facility] immunohistochemistry or special stains. Warthiandrew-starrogerio Immunohistochemistry technical testing was performed at [facility], Pathology Laboratory where it was developed [...] - Small Bowel, NOS Performing Organization Address [facility] Hospitalcode Phone Number [address] * Phosphorus (06/26/2018 4:31 AM [facility]) Only the most recent of 8 results within the time period is included. Phosphorus 2.9 2.3 - 4.7 mg/dL [facility] Specimen Blood - Arm, Left Performing Organization Address [facility] Hospital[facility] Phone Number [address] * Magnesium (06/26/2018 4:31 AM [facility]) Only the most recent of 7 results within the time period is included. Magnesium 1.7 1.6 - 2.6 mg/dL [facility] Specimen Blood - Arm, Left Performing Organization Address [facility] Hospital[facility] Phone Number [address] [address] [phone] [place] [address] * Hepatic function panel (06/26/2018 4:31 AM [facility]) Only the most recent of 4 results within the time period is included. Protein, Total 5.7 (L) 6.0 - 8.3 gm/dL [facility] Albumin 3.1 (L) 3.5 - 5.0 g/dL [facility] Total Bilirubin 2.1 (H) 0.2 - 1.2 mg/dL [facility] Bilirubin, Direct 1.4 (H) 0.1 - 0.5 mg/dL [facility] Alkaline Phosphatase 129 40 - 150 U/L [facility] AST 30 5 - 34 U/L [facility] ALT 14 6 - 55 U/L [facility] Specimen Blood - Arm, Left Performing Organization Address City/[facility]/Zipcode Phone Number [facility] [address] [place] [address] [facility] * Basic Metabolic Panel (06/26/2018 4:31 AM [facility]) Only the most recent of 8 results within the time period is included. Sodium 137 136 - 145 meq/L [facility] Potassium 3.5 3.5 - 5.1 meq/L [facility] Chloride 101 98 - 107 meq/L [facility] CO2 25 22 - 29 meq/L [facility] BUN 3 (L) 7 - 21 mg/dL [facility] Creatinine 0.56 (L) 0.57 - 1.25 mg/dL [facility] Glucose 119 (H) 70 - 105 mg/dL [facility] Calcium 8.8 8.4 - 10.2 mg/dL [facility] EGFR 114Comment: ESTIMATED GFR IS mL/min/1.73 sq m [facility] NOT ACCURATE CREATININE [facility] CLEARANCE IN PREDICTING GLOMERULAR FILTRATION RATE. ESTIMATED GFR IS NOT APPLICABLE FOR DIALYSIS PATIENTS. Specimen Blood - Arm, Left Performing Organization Address City/[facility] Hospitalcode Phone Number [facility] [address] [place] [address] [facility] * 2D Echo W/Doppler(CW/PW/Color) (06/25/2018 11:46 AM [facility]) [facility] ECHO HEARTLAB MKCKESSON CPACS Narrative Performed At Transthoracic Echocardiography Report (TTE) [facility] ECHO HEARTLAB Demographics [facility] Patient Name LASHONDA ARMSTRONG Date of Study06/25/2018 [facility] [id number] Gender Female Visit Number [id number] Race [id number] Number Date of Birth1965 Efrem Arredondo MD Physician Age53 year(s) SonographDrake Goldberg [facility] Interpreting Erlinda Hall PhysicianMD Fellow KAYLIN Dietrich [...] External Ris In - 06/26/2018 11:21 AM [facility] Transthoracic Echocardiography Report (TTE) Demographics Patient Name LASHONDA ARMSTRONG Date of Study 06/25/2018 [facility] Gender Female Visit Number [id number] Race Room Number 954 Number Date of 1965 Referring Doreen Arredondo MD Physician Age 53 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 Lactate, Venous 1.0 0.5 - 2.2 mmol/L [facility] Specimen Blood Performing Organization Address [facility] Phone Number [address] * TRANSFUSION SERVICE REPORT - SCAN (06/24/2018 6:03 PM [facility]) Only the most recent of 4 results within the time period is included. Narrative Performed At * Rapid Influenza A&B Screen (06/24/2018 6:41 AM [facility]) Rapid Influenza A Antigen NEGATIVE LABORATORY FINDING Negative, Inconclusive [facility] Rapid influenza B Antigen NEGATIVE LABORATORY FINDING Negative, Inconclusive [facility] Specimen Nasal - Nasopharyngeal Swab Performing Organization Address [facility] Phone Number [address] * Procalcitonin (06/24/2018 6:36 AM [facility]) Procalcitonin 0.10 (H) <0.05 ng/mL [facility] Specimen Blood Narrative Performed At SEPSIS RISK (ng/mL) [facility] Low:0.05-0.50 [facility] Intermediate: 0.51-2.00 High: >=2.01 Performing Organization Address [facility] Phone Number [place] [phone] * RESPIRATORY PANEL [facility] (06/24/2018 6:32 AM [facility]) Only the most recent of 2 results within the time period is included. Human Metapneumovirus Not detected Not detected, Equivocal [facility] Rhinovirus Not detected Not detected, Equivocal [facility] Influenza A Not detected Not detected, Equivocal [facility] INFLUENZA A (NO SUBTYPE) Not detected, [facility] Influenza A subtype H1 Not detected, [facility] Influenza A Subtype H3 Not detected[facility] Influenza A Subtype Not detected, [facility] H1-2009 [facility] Influenza B Not detected Not detected[facility] Respiratory Syncytial Not detected Not detected, [facility] Virus [facility] Parainfluenza Virus 1 Not detected Not detected, [facility] Parainfluenza Virus 2 Not detected Not detected, [facility] Parainfluenza virus 3 Not detected Not detected, [facility] Parainfluenza Virus 4 Not detected Not detected, [facility] Adenovirus Not detected Not detected, [facility] Coronavirus 229E Not detected Not detected[facility] Coronavirus HKU1 Not detected Not detected, [facility] Coronavirus NL63 Not detected Not detected, [facility] [facility]PITAL Coronavirus OC43 Not detected Not detected, Equivocal [facility] Bordetella Pertussis Not detected Not detected, Equivocal [facility] Chlamydophila Pneumoniae Not detected Not detected, Equivocal [facility] Mycoplasma Pneumoniae Not detected Not detected, Equivocal [facility] Specimen Nasopharyngeal Narrative Performed At Other viruses and bacteria not targeted by this PCR panel cannot be excluded; [facility] therefore clinical correlation and follow up of serology, culture results, and [facility] other molecular studies is required. The results are not intended to be used as the sole means for clinical diagnosis or patient management decisions. This sample was tested at the [facility] using the [employer] Respiratory Panel. It is FDA cleared and has been verified and approved by the [facility] for clinical use on nasal swab specimens. It is not FDA-cleared for use on bronchial wash/lavage samples. However, for this sample type, validation was performed and test characteristics were determined and approved, by [facility] for clinical use under the Clinical Laboratory Improvement Amendments (CLIA) of 1988 requirements. Therefore, FDA clearance is not required.This laboratory is CLIA-certified and [employer] (CAP)-accredited to perform high complexity testing. Performing Organization Address City/State/Zipcode Phone Number [address] [address] [facility] [place] * Prepare RBC (06/23/2018 11:54 PM LATH HAND) CROSSMATCH COMPATIBLE SAFETRACE TX Unit ABO O Pos SAFETRACE TX UNIT NUMBER [id number] SAFETRACE TX Status TX_TIMEINCHART SAFETRACE TX Blood Bank Product RED BLOOD CELLS SAFETRACE TX PRODUCT CODE [id number] SAFETRACE TX CROSSMATCH COMPATIBLE SAFETRACE TX Unit ABO O Pos SAFETRACE TX UNIT NUMBER [id number] SAFETRACE TX Status TX_TIMEINCHART SAFETRACE TX Blood Bank Product RED BLOOD CELLS SAFETRACE TX PRODUCT CODE [id number] SAFETRACE TX Performing Organization Address City/[facility] Phone Number SAFETRACE TX * CT chest without IV contrast (06/23/2018 2:31 PM LATH HAND) Narrative Performed At FINAL REPORT [facility] CT of the Chest dated 06/23/2018 CLINICAL [...] MD Report Verified Date/Time:06/23/2018 15:49:51 Reading Location: [facility] C013Y CT Body Reading Room Procedure Note Interface, External Ris In - 06/23/2018 3:52 PM LATH HAND FINAL REPORT CT of the Chest dated [...] Report Verified Date/Time: 06/23/2018 15:49:51 Reading Location: [facility] C013Y CT Body Reading Room Performing Organization Address City/State/Zipcode Phone Number RIS * Blood Culture - Routine (Right Venipuncture) (06/23/2018 12:13 PM LATH HAND) Only the most recent of 2 results within the time period is included. Result No growth in [address] [facility] Specimen Blood - Arm, Right Performing Organization Address City/[facility]/Zipcode Phone Number [facility] [address] [place] [address] [facility] [place] * Urinalysis w/Microscopic + Reflex to Culture (06/22/2018 2:37 PM LATH HAND) Color, UA Yellow [facility] Clarity, UA Clear [facility] Specific [place], UA 1.002 1.001 - 1.[address] [facility] pH, UA 8.0 5.0 - 8.[address] [facility] Protein, UA Negative Negative [facility] Glucose, UA Negative Negative [facility] Ketones, UA 10 mg/dL (A) Negative [facility] Bilirubin, UA Negative Negative [facility] Blood, UA Negative Negative [facility] Nitrite, UA Negative Negative [facility] Leukocytes, UA Negative Negative [facility] Urobilinogen, UA 0.2 0.2 - 1.0 mg/dL [facility] RBC, UA 0 /HPF [facility] WBC, UA <1 /HPF [facility] Bacteria, UA Occasional [facility] Squam Epithel, UA 2 /HPF [facility] Crystals, Urine Rare [facility] Specimen Source [facility] Specimen Urine - Urine, Clean Catch Performing Organization Address City/[facility]/Zipcode Phone Number [facility] [address] [place] [address] [facility] [place] * Transfuse Leuko-Red RBC (06/22/2018 5:06 AM LATH HAND) Only the most recent of 3 results within the time period is included. * CT abdomen/pelvis with IV contrast (06/21/2018 1:16 PM LATH HAND) Narrative Performed At FINAL REPORT [facility] CT abdomen and pelvis with contrast History: [...] MD Report Verified Date/Time:06/21/2018 13:37:33 Reading Location: [address] Consult Reading Room Procedure Note Interface, External Ris In - 06/22/2018 10:39 PM LATH HAND FINAL REPORT CT abdomen and pelvis with [...] Report Verified Date/Time: 06/21/2018 13:37:33 Reading Location: [facility] C013X Ortho Consult Reading Room Performing Organization Address City/State/Zipcode Phone Number [employer] * Type and screen, automated (06/21/2018 12:00 PM LATH HAND) ABO/RH AUTOMATED (BEAKER) O POSITIVE [facility] Ab Scrn NEGATIVE [facility] Specimen Blood Performing Organization Address City/[facility] Phone Number [facility] [address] [place] [address] MEDICAL CENTER * US abdomen complete (06/21/2018 8:25 AM LATH HAND) Narrative Performed At FINAL REPORT [employer] Complete Abdominal Ultrasound History: Leukopenia, abnormal liver [...] MD Report Verified Date/Time:06/21/2018 08:41:18 Reading Location: [address] Ortho Consult Reading Room Procedure Note Interface, External Ris In - 06/21/2018 8:43 AM LATH HAND FINAL REPORT Complete Abdominal Ultrasound History: Leukopenia, [...] Report Verified Date/Time: 06/21/2018 08:41:18 Reading Location: [facility] C013X Ortho Consult Reading Room Performing Organization Address City/State/Zipcode Phone Number [facility] * Vitamin B12 and Folate (06/21/2018 5:48 AM LATH HAND) Vitamin B12 378 213 - 816 pg/mL [facility] Folate 4.3 (L) >=7.0 ng/mL [facility] Specimen Blood Performing Organization Address [facility]/Zipcode Phone Number [facility] [address] [place] [address] MEDICAL CENTER * Lipid panel (06/21/2018 5:48 AM LATH HAND) Triglycerides 89 mg/dL [facility] Cholesterol 104 mg/dL [facility] HDL 34 mg/dL [facility] LDL Calculated 52 mg/dL [facility] Specimen Blood Narrative Performed At Triglyceride Reference Range: [facility] Low Risk <150 [facility] [id number] High Risk 200-499 Very High Risk>=500 Cholesterol Reference Range: Low Risk <200 [id number] High Risk>240 HDL Cholesterol Reference Range: Low Risk >=60 High Risk <40 LDL Cholesterol Reference Range: Optimal<100 Near [id number] [id number] Goxx805-508 Very High >=190 Specimen slightly icteric Performing Organization Address City/[facility] [place] [place] [address] [phone] [place] [address] * Occult blood, stool (06/21/2018 12:10 AM LATH HAND) Occult blood Negative Negative [facility] Specimen Stool - Stool Performing Organization Address City/[facility] Phone Number [address] [address] [facility] [place] * Peripheral Blood Smear - Path Review (06/20/2018 10:14 PM LATH HAND) RBC Morphology Polychromasia [facility] Anisocytosis [facility] Poikilocytosis Pathologist Review Cell counts confirmed. [facility] Pathologist: Lexy Ryan M.D. [facility] (electronic signature) [facility] Specimen Blood Performing Organization Address City/[facility]/Zipcode Phone Number [address] [address] [phone] [place] [address] * TSH/Free T4 If Indicated (06/20/2018 10:14 PM LATH HAND) TSH 0.75 0.35 - 4.94 uIU/mL [facility] Specimen Blood Performing Organization Address City/[facility]/Zipcode Phone Number [address] [address] MEDICAL CENTER * PT/aPTT (06/20/2018 10:14 PM LATH HAND) Protime 14.0 11.7 - 14.[address] [facility] INR 1.1 <=5.[address] [facility] PTT 27.5 22.5 - 36.[address] [facility] Specimen Blood Narrative Performed At RECOMMENDED COUMADIN/WARFARIN INR THERAPY RANGES [facility] STANDARD DOSE: 2.0 - 3.0 Includes: PROPHYLAXIS for venous thrombosis, [facility] systemic embolization; TREATMENT for venous thrombosis and/or pulmonary embolus. HIGH RISK: Target INR is 2.5-3.5 for patients with mechanical heart valves. Performing Organization Address City/[facility] Phone Number [address] * Iron, TIBC, % sat. (without ferritin) (06/20/2018 10:14 PM LATH HAND) Iron 201.0 (H) 40.0 - 160.0 ug/dL [facility] TIBC 206 (L) 250 - 450 ug/dL [facility] Iron % Saturation 98 (H) 20 - 55 % [facility] Specimen Blood Performing Organization Address [facility] Phone Number [address] * C-Reactive Protein (06/20/2018 10:14 PM LATH HAND) CRP 3.21 (H) 0.00 - 0.50 mg/dL [facility] Specimen Blood Performing Organization Address City/[facility]/Zipcode Phone Number [address] * Bilirubin, indirect (06/20/2018 10:14 PM LATH HAND) Bilirubin, Indirect 0.6 0.0 - 1.1 mg/dL [facility] Specimen Blood Performing Organization Address City/[facility] Phone Number [phone] [place] [address] * Blood typing, automated (06/20/2018 10:14 PM LATH HAND) ABO/RH AUTOMATED (BEAKER) O POSITIVE [facility] Specimen Blood Performing Organization Address [facility] Phone Number [address] * Reticulocyte count (06/20/2018 10:14 PM LATH HAND) % Retic 1.3 0.5 - 1.7 % [facility] Specimen Blood Performing Organization Address [facility] Phone Number [address] * Direct AHG (ANDREIA)/Direct Ge (06/20/2018 10:14 PM LATH HAND) Direct AHG-IGG NEGATIVE [facility] Direct AHG-C3B, C3D NEGATVIE [facility] Specimen Blood Performing Organization Address [facility] Number [address] * Anti-Nuclear Antibody (AYDEN) (06/20/2018 10:14 PM LATH HAND) AYDEN Negative Negative [facility] Specimen Blood Narrative Performed At Test performed by IFA method. [facility] Test performed by IFA method. [facility] Performing Organization Address [facility] Phone Number [address] * Lipase (06/20/2018 10:14 PM LATH HAND) Lipase 5 (L) 8 - 78 U/L [facility] Specimen Blood Performing Organization Address [facility] Phone Number [facility] [address] * Lactate dehydrogenase (LDH) (06/20/2018 10:14 PM LATH HAND) LDH 227 (H) 125 - 220 U/L [facility] Specimen Blood Performing Organization Address City/State/Zipcode Phone Number [address] * Hemoglobin A1c (06/20/2018 10:14 PM LATH HAND) Hemoglobin A1C 5.9 4.3 - 6.1 % [facility] Specimen Blood Performing Organization Address City/[facility] Phone Number [address] * Haptoglobin (06/20/2018 10:14 PM LATH HAND) Haptoglobin 67 14 - 258 mg/dL [facility] Specimen Blood Performing Organization Address City/[facility] Phone Number [address] * Ferritin (06/20/2018 10:14 PM LATH HAND) Ferritin 810 (H) 5 - 275 ng/mL [facility] Specimen Blood Performing Organization Address City/[facility] Phone Number [address] * Ketone, blood (06/20/2018 10:14 PM LATH HAND) Ketones, Blood 0.5 (H) <0.4 mmol/L [facility] Specimen Blood Performing Organization Address City/[facility] Phone Number [address] after 08/02/2017 Insurance Payer Benefit Subscriber ID Type Phone Address Plan / Group [facility] HMO/POS CARE POS SELECT CHOICE Advance Directives For more information, please contact: [address] [address] Date Inactivated Comments Code Status Date Activated 06/27/2018 3:53 PM Full Code 06/20/2018 8:50 PM This code status was determined by: Patient
[2018-08-03] MEDS: INSULIN LISPRO 100 UNIT/1 ML 3ML VIAL SQ SCH ×3 (13:05→21:30)
--- NOTE | 2018-08-03 13:10 | NUR ---
Dr. Zepeda at bedside at this time.
[2018-08-03 14:03] VITALS: BP 160/78
[2018-08-03 14:15] VITALS: BP 160/78
[2018-08-03] MEDS: METHYLPREDNISOLONE SOD SUCC 40 MG/ML VIAL 1ML IV SCH ×2 (14:28→21:30)
--- NOTE | 2018-08-03 14:55 | NUR ---
Recvd patient from ER. AAOx3, Assisted her to bed, on O2 2L, Not in any distress, call light in reach
[2018-08-03 15:21] VITALS: BP 160/78
[2018-08-03] MEDS: PANTOPRAZOLE SOD 40 MG TABEC PO SCH (16:50)
--- NOTE | 2018-08-03 19:00 | NUR ---
Report and rounds completed. Patient in bed with spouse at bedside. IV infusing, site CDI. [address] Call light within reach. Will continue to monitor.
[2018-08-03 20:00] VITALS: BP 157/83
--- NOTE | 2018-08-03 21:54 | Diagnostic Imaging Report ---
EXAM: CT Chest WITHOUT contrast INDICATION: ^R/O PNA COMPARISON: Chest x-ray 08/03/2018. 02/05/2018. CT abdomen and pelvis December 31, 2017. 92,[id number]. TECHNIQUE: Chest was scanned utilizing a multidetector helical scanner from the lung apex through the level of the adrenal glands without administration of IV contrast. Absence of intravenous contrast decreases sensitivity for detection of lymphadenopathy and vascular pathology. Coronal and sagittal reformations were obtained. Routine protocol was performed. IV CONTRAST: None COMPLICATIONS: None RADIATION DOSE: Total DLP: 504.04 mGy*cm Estimated effective dose: (DLP x 0.014 x size factor) mSv CTDIvol has been reviewed. It is below the limits set by the Radiation Protocol Committee (RPC). Dose modulation, iterative reconstruction, and/or weight based adjustment of the mA/kV was utilized to reduce the radiation dose to as low as reasonably achievable. FINDINGS: LINES/ TUBES: None. LUNGS AND AIRWAYS: Diffuse bronchial wall thickening. Bilateral atelectasis in the lingula and right middle lobe. Nonspecific patchy groundglass opacities in both lower lobes, predominantly in the right lower lobe, likely representing atypical infection. There is a bilateral lower lobe bronchiectasis, bronchial wall thickening, and platelike atelectasis. Diffuse calcification of the tracheobronchial tree. No filling defects identified within the airways. PLEURA: The pleural spaces are clear. HEART AND MEDIASTINUM: The thyroid gland is normal. No axillary lymphadenopathy. Multiple predominantly fatty lymph nodes within the mediastinum, which is greater than expected. Pretracheal lymph node measures 0.8 cm (series 2, image 40). A left paratracheal lymph node measures 1.1 cm (series 2, image 29). Multiple small hilar lymph nodes. The heart is normal in size. There is no pericardial effusion. Main pulmonary artery measures 4.0 cm Nascimento the aorta measures 3.4 cm. Mild coronary artery calcifications. UPPER ABDOMEN: Significant diffuse hepatic steatosis with density measuring 7 Hounsfield units on noncontrast CT. Pancreas is atrophied. Upper abdomen is otherwise unremarkable. BONES: The visualized bony thorax is within normal limits. SOFT TISSUES: Unremarkable. IMPRESSION: 1. Patchy groundglass opacities predominantly in both lower lobes, likely represents atypical infection. 2. Diffuse bronchial wall thickening and bronchiectasis, which is predominantly seen in both lower lobes. This likely represents atypical infection or reactive airway from previous infection. 3. Bilateral hilar lymph nodes, which is also likely sequela of infection. 4. Severe diffuse hepatic steatosis. Signed by: Dr. Naren Son M.D. on 08/03/2018 9:50 PM
[2018-08-04] VITALS (13 sets, daily range): BP systolic 82–195; BP diastolic 57–104
[2018-08-04] MEDS: IPRATROPIUM BROMIDE 0.02% 2.5 ML NEB NEB SCH ×4 (00:10→23:30)
[2018-08-04] MEDS: ALBUTEROL SULF 0.083% NEB SOLN 3 ML NEB NEB SCH ×4 (00:10→11:15)
[2018-08-04] MEDS: SODIUM CHLORIDE 0.9% 1000ML 1,000 ML IV SCH ×3 (03:08→21:36)
[2018-08-04 05:22] LABS: BASOPHILS % 0.4 % (0.0-1.0); EOSINOPHILS # (AUTO) 0.1 (0.0-0.4); EOSINOPHILS % 2.2 % (0.0-6.0); HEMATOCRIT 36.5 % (34.2-44.1); LYMPHOCYTES # (AUTO) 0.4 (1.0-3.2); LYMPHOCYTES % 8.2 % (18.0-39.1); MEAN CORPUSCULAR HEMOGLOBIN 33.8 pg (28-32); MEAN CORPUSCULAR HGB CONC 32.9 g/dL (31-35); MEAN CORPUSCULAR VOLUME 102.8 fL (81-99); MONOCYTES # (AUTO) 0.2 (0.2-0.8); MONOCYTES % 4.9 % (4.4-11.3); NEUTROPHILS # (AUTO) 3.8 (2.1-6.9); NEUTROPHILS % 83.9 % (38.7-80.0); PLATELET COUNT 190 x10e3/uL (140-360); RED BLOOD COUNT 3.55 x10e6/uL (3.6-5.1); RED CELL DISTRIBUTION WIDTH 17.1 % (11.7-14.4)
[2018-08-04 05:32] LABS: INR 0.93
[2018-08-04] MEDS: METHYLPREDNISOLONE SOD SUCC 40 MG/ML VIAL 1ML IV SCH (05:33)
[2018-08-04 05:42] LABS: ANION GAP 8.2 mmol/L (8-16); BLOOD UREA NITROGEN 6 mg/dL (7-26); BUN/CREATININE RATIO 10 (6-25); CALCIUM 9.1 mg/dL (8.4-10.2); CARBON DIOXIDE 28 mmol/L (22-29); CHLORIDE 102 mmol/L (98-107); CREATININE, SERUM 0.62 mg/dL (0.57-1.11); EST GLOMERULAR FILTRATION RATE > 60 ML/MIN (60-); GLUCOSE 298 mg/dL (74-118); POTASSIUM 3.2 mmol/L (3.5-5.1); SODIUM 135 mmol/L (136-145)
[2018-08-04 05:58] LABS: ALBUMIN 2.9 g/dL (3.5-5.0); BILIRUBIN,DIRECT 0.6 mg/dL (0.0-0.5)
[2018-08-04] MEDS: IBUPROFEN 600 MG TAB PO PRN (06:05)
--- NOTE | 2018-08-04 06:06 | Diagnostic Imaging Report ---
EXAMINATION: CHEST SINGLE (PORTABLE) INDICATION: ^PNEMONIA COMPARISON: CT chest 08/03/2018. Chest x-ray 08/03/2018. FINDINGS: AP view TUBES and LINES: None. LUNGS: Lungs are moderate inflated. Interval development perihilar vascular crowding and increasing bibasilar atelectasis. Bibasilar scarring and atelectasis again seen. Mild groundglass opacity seen on CT chest remain present. PLEURA: No pleural effusion or pneumothorax. HEART AND MEDIASTINUM: Cardiac size is moderately enlarged. BONES AND SOFT TISSUES: No acute osseous lesion. Soft tissues are unremarkable. UPPER ABDOMEN: No free air under the diaphragm. IMPRESSION: 1. Overall unchanged in bibasilar scarring and atelectasis and mild groundglass opacities. 2. Developmental perihilar vascular crowding secondary to slight underinflation compared to prior exam. Signed by: Dr. Naren Son M.D. on 08/04/2018 6:02 AM
[2018-08-04 06:13] LABS: THYROID STIMULATING HORMONE 0.418 uIU/mL (0.350-4.940)
[2018-08-04] MEDS: INSULIN LISPRO 100 UNIT/1 ML 3ML VIAL SQ SCH ×4 (07:35→20:45)
[2018-08-04] MEDS: CEFTRIAXONE SOD 1 GM/NS 50 ML 50 ML IV SCH (08:49)
[2018-08-04] MEDS: PANTOPRAZOLE SOD 40 MG TABEC PO SCH ×2 (08:49→16:30)
--- NOTE | 2018-08-04 09:05 | NUR ---
patient up in bed, not in any distress, breathing normally, on O2 2L NC, call light in reach
[2018-08-04] MEDS ORDERED: HYDROCODONE/CHLORPHENIRAMINE 5 ML LIQCR PO PRN ×2 (09:30→10:15)
[2018-08-04] MEDS: AZITHROMYCIN 500MG/NS 250 ML 250 ML IV SCH (09:37)
[2018-08-04 10:17] LABS: BAND NEUTROPHILS % (MANUAL) 1 %; LYMPHOCYTES % (MANUAL) 6 % (19-48); NEUTROPHILS % (MANUAL) 93 % (40-74)
[2018-08-04 10:19] LABS: ANISOCYTOSIS SLIGHT; PLATELET ESTIMATE ADEQUATE; PLATELET MORPHOLOGY COMMENT NORMAL; RBC MORPHOLOGY COMMENT NORMAL
--- NOTE | 2018-08-04 13:55 | NUR ---
Visit made by the Spiritual Care Department Pastoral Visitor, Christina Jaime. PV provided pastoral presence, hospitality, prayer, and supportive listening. Pastoral Visitor informed pt/family of the scope of [employer] and availability. NEHA WELCH Insight Leader Spiritual Care Department O: [phone] Pager: [phone] ([phone] number calling from)
[2018-08-04] MEDS ORDERED: POTASSIUM CHLORIDE 20 MEQ TAB CR PO NR (14:00)
[2018-08-04] MEDS: CEFEPIME 2 GM/NS 0.9% 100 ML 100 ML IV SCH ×2 (14:30→22:00)
[2018-08-04] MEDS: BENZONATATE 100 MG CAP PO SCH ×2 (14:32→20:32)
--- NOTE | 2018-08-04 15:00 | NUR ---
patient called for help in room, she was c/o she cant breath, anxious, hyper ventilating, O2 sat 90% on 2L NC BP 197/105 HR- 128, Called Rapid Response
[2018-08-04] MEDS ORDERED: LORAZEPAM INJ 2 MG/ML VIAL ONE ×2 (15:13→15:20)
[2018-08-04] MEDS ORDERED: LABETALOL HCL 20 ML ONE (15:24)
[2018-08-04] MEDS ORDERED: HALOPERIDOL LACTATE 5 MG/ML VIAL IV NR (16:15)
[2018-08-04 16:18] LABS: ABG PH 7.41 (7.31-7.41)
[2018-08-04 16:19] LABS: ABG HCO3 18 mmol/L (23-28); ABG PCO2 29 mmHg (41-51); ABG PO2 42 mmHg (80-105)
--- NOTE | 2018-08-04 16:50 | NUR ---
patient still anxious 02 sat 87 % ON 4L Non breather mask. Patient refused Bipap machine, at bed side, Dr Mesa at bed side
[2018-08-04] MEDS: LACTOBACILLUS ACIDOPHILUS CAPSULE PO SCH (17:00)
--- NOTE | 2018-08-04 17:01 | NUR ---
patient transferred to ICU
[2018-08-04] MEDS ORDERED: PROPOFOL IV EMULSION 10MG/ML 100 ML ONE ×2 (17:25→21:21)
--- NOTE | 2018-08-04 17:41 | Diagnostic Imaging Report ---
Examination: Single AP view of the chest. COMPARISON: None. INDICATION: Intubation DISCUSSION: Lines/tubes: Endotracheal tube 4.5 cm above the james. Lungs: Interstitial and alveolar edema. Pleura: No pleural effusion or pneumothorax. Heart and mediastinum: Cardiomegaly Bones and soft tissues: No acute bony abnormalities. IMPRESSION: Cardiomegaly with severe edema Signed by: Dr. Uvaldo Beasley M.D. on 08/04/2018 5:37 PM
--- NOTE | 2018-08-04 18:10 | NUR ---
Patient moved to room 190, on ventilator and ekg monitor. Patient stable and hooked up to ICU monitor.
--- NOTE | 2018-08-04 18:29 | Consultation ---
DATE OF CONSULTATION: Pulmonary Critical Care Consultation CHIEF COMPLAINT: Dyspnea and pulmonary infiltrates. HISTORY OF PRESENT ILLNESS: The patient is a 53-year-old. She has type 1 diabetes since childhood. She sees Dr. Jaki Bryant as an outpatient. She takes insulin twice a day as well as short-acting insulin before meals. She has problems with gastroparesis and acid reflux. The patient was admitted to [facility] in January of 2018 with ketoacidosis and gastroparesis. She was hospitalized at [facility] about two weeks ago with pneumonia. She now comes back complaining of congestion and difficulty expectorating the phlegm. She has dyspnea and possible fevers as well. PAST SURGICAL HISTORY: 1. Status post hysterectomy. 2. Status post appendectomy. 3. Status post cholecystectomy. PAST MEDICAL HISTORY: 1. Type 1 diabetes. 2. Gastroesophageal reflux. 3. Gastroparesis. 4. Bronchiectasis. FAMILY HISTORY: Family history is noncontributory. SOCIAL HISTORY: The patient has never been a smoker. She is rare drinker. ALLERGIES: THERE ARE NO KNOWN DRUG ALLERGIES. REVIEW OF SYSTEMS: The patient has a history of fever. She has some headache. She has no neck pain. She has no chest congestion or pain. She does have rhonchi and dyspnea. She has a cough. She has no abdominal pain. She has no nausea or vomiting. She has no leg edema. PHYSICAL EXAMINATION: VITAL SIGNS: The patient is afebrile. The blood pressure is 195/104 and the saturation is 93% on nasal cannula. Heart rate is 110 to 120. HEENT: Shows no facial swelling or erythema. The oropharynx is normal. LYMPHATIC: Shows no submandibular, cervical, or supraclavicular adenopathy. CARDIAC: Reveals regular rate and rhythm with normal S1 and S2. There are no murmurs or rubs heard. LUNGS: Auscultation of lungs reveals rhonchorous breath sounds bilaterally. There is no wheezing. ABDOMEN: Soft and nontender. There is no rebound or guarding. EXTREMITIES: Show no leg edema or calf tenderness. RADIOGRAPHIC DATA: 1. CT scan of the chest shows patchy ground-glass opacities, predominantly in the lower lobes, possibly representing pneumonia. 2. Bronchiectasis in the lower lobes. 3. Hepatic steatosis. LABORATORY DATA: White blood cell count is 4.5 and hemoglobin is 12. The platelet count is 190. The BUN to creatinine ratio is 6-0.62 and the potassium is 3.2. The other electrolytes are within normal limits. The AST is 70 and the ALT is 64. Urine specific gravity is 1.03. IMPRESSION: 1. Bronchiectasis with acute exacerbation. 2. Community-acquired pneumonia with sepsis, present on admission. 3. Type 1 diabetes. 4. Diabetic gastroparesis. 5. Gastroesophageal reflux. PLAN: 1. Continue current antibiotics. We will cover for Pseudomonas and other pathogens associated with bronchiectasis. We will also cover for atypical infections. 2. Haldol as needed for sedation. 3. Continue IV fluids. 4. Continue insulin and monitor blood sugars and electrolytes. 5. If the patient's condition worsens, she may require intubation. Andrey Mesa MD [facility]/[place] /[id number]
[2018-08-04] MEDS: ENOXAPARIN SOD INJ 40 MG/0.4 ML SYR SC SCH (18:56)
--- NOTE | 2018-08-04 19:00 | NUR ---
Report received. Assumed care. Assessment done. See interventions. Orally intubated with 7.0 FR ETT. Secured @ 21cm at the lip. Vent settings: TV 420, FIO2 100%, PRVC 16 & PEEP 5cm. Sedated with Propofol. Purewick external catheter in place.
[2018-08-04] MEDS ORDERED: ETOMIDATE 40 MG/ 20ML VIAL IV ONE (19:01)
[2018-08-04] MEDS ORDERED: SUCCINYLCHOLINE 200 MG/10 ML SYR ONE (19:01)
[2018-08-04] MEDS ORDERED: MIDAZOLAM HCL 2 MG/2 ML VIAL ONE (19:01)
[2018-08-04] MEDS ORDERED: PROAIR HFA INH8.5 GM INH (19:12)
[2018-08-04] MEDS ORDERED: SYMBICORT 16010.2 GM (19:12)
[2018-08-04] MEDS ORDERED: CORLANOR PO (19:12)
[2018-08-04] MEDS ORDERED: ASPIRIN CHEW81 MG PO (19:14)
[2018-08-04] MEDS ORDERED: TENORMIN50 MG PO (19:14)
[2018-08-04] MEDS ORDERED: LORATADINE10 MG PO (19:14)
--- NOTE | 2018-08-04 19:30 | NUR ---
ABG done. Decreased FIO2 to 80%.
[2018-08-04 19:34] LABS: ABG HCO3 22 mmol/L (23-28); ABG PCO2 33 mmHg (41-51); ABG PH 7.43 (7.31-7.41); ABG PO2 154 mmHg (80-105)
--- NOTE | 2018-08-04 20:14 | NUR ---
Call from Dr. Mesa. Advised of ABG results. Orders given. Decreased FIO2 to 70% and TV to 400.
--- NOTE | 2018-08-04 20:40 | NUR ---
OGT inserted. Tube feeding started with Glucerna 1.2 @ 20ml/hr.
--- NOTE | 2018-08-04 21:15 | NUR ---
Call from Dr. Zepeda. Status update given. Orders given.
[2018-08-04] MEDS: PROPOFOL IV EMULSION 10MG/ML 100 ML IV SCH (21:30)
--- NOTE | 2018-08-04 23:50 | NUR ---
Temp 102.6. Call to Dr. Mesa. Orders given.
[2018-08-04] MEDS ORDERED: ACETAMINOPHEN 325 MG/10 ML UDC ONE (23:52)
--- NOTE | 2018-08-04 23:53 | NUR ---
Medicated with Tylenol per OGT.
[2018-08-05] VITALS (35 sets, daily range): BP systolic 99–180; BP diastolic 61–110
[2018-08-05] MEDS ORDERED: ACETAMINOPHEN 325 MG TAB NG PRN
[2018-08-05] MEDS: IPRATROPIUM BROMIDE 0.02% 2.5 ML NEB NEB SCH ×6 (00:10→19:45)
[2018-08-05] MEDS: INSULIN LISPRO 100 UNIT/1 ML 3ML VIAL SQ SCH ×6 (01:12→17:40)
--- NOTE | 2018-08-05 03:06 | NUR ---
RT at bedside. Decreased FIO2 to 50%.
[2018-08-05 04:57] LABS: BASOPHILS # (AUTO) 0.1 (0.0-0.1); BASOPHILS % 0.8 % (0.0-1.0); EOSINOPHILS # (AUTO) 0.1 (0.0-0.4); EOSINOPHILS % 1.8 % (0.0-6.0); HEMATOCRIT 37.5 % (34.2-44.1); HEMOGLOBIN 11.8 g/dL (12.0-16.0); LYMPHOCYTES # (AUTO) 1.6 (1.0-3.2); MEAN CORPUSCULAR HEMOGLOBIN 34.1 pg (28-32); MEAN CORPUSCULAR HGB CONC 31.5 g/dL (31-35); MONOCYTES # (AUTO) 1.4 (0.2-0.8); MONOCYTES % 18.9 % (4.4-11.3); NEUTROPHILS # (AUTO) 4.1 (2.1-6.9); PLATELET COUNT 172 x10e3/uL (140-360); RED BLOOD COUNT 3.46 x10e6/uL (3.6-5.1); RED CELL DISTRIBUTION WIDTH 17.8 % (11.7-14.4)
--- NOTE | 2018-08-05 05:00 | NUR ---
Purewick moved and urine was on the linens. Pericare done and linens changed. New purewick applied.
[2018-08-05 05:02] LABS: MEAN CORPUSCULAR VOLUME 108.4 fL (81-99)
[2018-08-05 05:23] LABS: ALANINE AMINOTRANSFERASE 81 IU/L (0-55); ALBUMIN 2.6 g/dL (3.5-5.0); ALKALINE PHOSPHATASE 176 IU/L (40-150); ANION GAP 12.3 mmol/L (8-16); BILIRUBIN,DIRECT 0.6 mg/dL (0.0-0.5); BLOOD UREA NITROGEN 10 mg/dL (7-26); BUN/CREATININE RATIO 17 (6-25); CALCIUM 8.5 mg/dL (8.4-10.2); CARBON DIOXIDE 20 mmol/L (22-29); CHLORIDE 108 mmol/L (98-107); EST GLOMERULAR FILTRATION RATE > 60 ML/MIN (60-); GLUCOSE 169 mg/dL (74-118); POTASSIUM 3.3 mmol/L (3.5-5.1); SODIUM 137 mmol/L (136-145)
--- NOTE | 2018-08-05 05:52 | Diagnostic Imaging Report ---
EXAMINATION: CHEST SINGLE (PORTABLE) INDICATION: ^Intubated COMPARISON: Chest x-ray 08/04/2018. FINDINGS: AP view TUBES and LINES: ET tube and nasogastric tube in good position. LUNGS: Lungs are moderately inflated. Diffuse patchy alveolar opacities bilaterally remain unchanged. PLEURA: No pleural effusion or pneumothorax. HEART AND MEDIASTINUM: Cardiac size is mildly enlarged. BONES AND SOFT TISSUES: No acute osseous lesion. Soft tissues are unremarkable. UPPER ABDOMEN: No free air under the diaphragm. IMPRESSION: Unchanged diffuse pulmonary edema. Signed by: Dr. Naren Son M.D. on 08/05/2018 5:49 AM
[2018-08-05] MEDS: CEFEPIME 2 GM/NS 0.9% 100 ML 100 ML IV SCH ×3 (06:22→22:45)
[2018-08-05] MEDS: PROPOFOL IV EMULSION 10MG/ML 100 ML IV SCH ×3 (06:57→20:00)
[2018-08-05 07:30] LABS: LYMPHOCYTES % (MANUAL) 26 % (19-48); MONOCYTES % (MANUAL) 16 % (3.4-9.0); NEUTROPHILS % (MANUAL) 57 % (40-74)
[2018-08-05 07:32] LABS: HYPOCHROMASIA SLIGHT; PLATELET ESTIMATE ADEQUATE; PLATELET MORPHOLOGY COMMENT FEW LARGE; RBC MORPHOLOGY COMMENT ABNORMAL
[2018-08-05] MEDS: SODIUM CHLORIDE 0.9% 1000ML 1,000 ML IV SCH (07:34)
[2018-08-05] MEDS: ACETAMINOPHEN 325 MG TAB NG PRN (07:44)
--- NOTE | 2018-08-05 07:45 | NUR ---
SEDATION VACATION STARTED
[2018-08-05] MEDS ORDERED: POTASSIUM CHLORIDE 20MEQ/15ML UDC NG ONE (08:00)
--- NOTE | 2018-08-05 08:00 | NUR ---
GORDON CATHETER INSERTED WITH TEMP PROBE. PATIENT WAS RETAINING 500 ML URINE.
[2018-08-05] MEDS: LACTOBACILLUS ACIDOPHILUS CAPSULE PO SCH ×2 (08:22→16:12)
[2018-08-05] MEDS: BENZONATATE 100 MG CAP PO SCH ×3 (08:23→21:00)
[2018-08-05] MEDS: FAMOTIDINE 20 MG/2 ML VIAL IV SCH ×2 (08:45→16:12)
[2018-08-05] MEDS: AZITHROMYCIN 500MG/NS 250 ML 250 ML IV SCH (08:45)
[2018-08-05] MEDS ORDERED: TOBRAMYCIN 40 MG/ML 2ML VIAL INH SCH (09:00)
[2018-08-05] MEDS ORDERED: METHYLPREDNISOLONE SOD SUCC 40 MG/ML VIAL 1ML IV SCH (09:00)
--- NOTE | 2018-08-05 09:53 | Progress Note ---
DATE: Pulmonary Critical Care Progress Note SUBJECTIVE: The patient was intubated yesterday afternoon and transferred to the intensive care unit. She remains on assist-control ventilation. She is sedated on Diprivan. Enteral feedings were started. OBJECTIVE: VITAL SIGNS: The blood pressure is 109/61 and the saturation is 97%. She is on assist-control rate of 16 with a tidal volume of 600 and FiO2 of 50%. The pulse is 108. The respiratory rate is 22. She has a nasogastric feeding tube in place. There is no swelling. She has no lymphatic adenopathy. CARDIAC: Reveals regular rate and rhythm with normal S1, S2. LUNGS: Auscultation of lungs reveals rhonchorous breath sounds bilaterally. There is no wheezing. ABDOMEN: Soft, nontender. There is no rebound or guarding. EXTREMITIES: Shows no leg edema. SKIN: Shows no rashes. NEUROLOGICAL: Shows no focal abnormalities. LABORATORY DATA: The white blood cell count is 7.3 and hemoglobin is 11.8. The platelet count is 172. The BUN to creatinine ratio is 10 to 0.6. The other electrolytes are significant for a potassium of 3.3. The glucose is 158. AST is 145 and ALT is 181. RADIOGRAPHIC DATA: Bilateral pulmonary infiltrates. IMPRESSION: 1. Acute respiratory failure. 2. Aspiration pneumonia with severe sepsis, present on admission. 3. Bronchiectasis with acute exacerbation. 4. Diabetic gastroparesis. 5. Gastroesophageal reflux. 6. Type 1 diabetes. PLAN: 1. Broaden antibiotics to cover for hospital-acquired pathogens because the patient was at [place] within the last month. 2. Sputum culture; await blood cultures and urine culture. 3. Continue Glucerna and consult dietary for further recommendations. 4. Continue to monitor blood sugars and administer insulin. 5. Strict I's and O's. 6. Wean vent as tolerated with spontaneous breathing trials as needed. 7. Case discussed with nursing staff, Dr. Zepeda, and family. Greater than 35 minutes in direct critical care time. MD HEIDE Teague/NADINE /[id number]
[2018-08-05] MEDS: IBUPROFEN 600 MG TAB PO PRN (10:05)
--- NOTE | 2018-08-05 10:29 | NUR ---
ALLEVYN PATCH APPLIED TO SCRUM AND RAYNE [employer]EL [employer].
--- NOTE | 2018-08-05 10:30 | NUR ---
Nutrition Intervention Note RD Recommendation(s) for Physician: -Rec continuous TF with Vital HP @50mL/hr, providing 1200kcal, 105g protein, 1003mL H2O. (Order placed per Dr. Mesa approval) -Free water flushes per MD discretion -Check daily labs, gastric tolerance, weights Plan of Care: RD following, monitoring for tolerance and adequacy, TF rec Nutrition reason for involvement: MD TF rec RD Assessment 08/05 Chart reviewed. 53yo F, who was admitted for congestion and difficulty expectorating the phlegm. The patient was intubated yesterday afternoon and transferred to the intensive care unit. Visited pt in the room. On vent with IVF @10mL/hr and propofol @4.1mL/hr. No pressor meds ordered. TF with Glucerna running at 40mL/hr. Glucose 158 206 with Solu-medrol and insulin. No family on bedside to provide hx. Received telephone order from Dr. Mesa to change TF order. Communicate TF rec with ISADORA Arreguin. Will continue to monitor and follow. Principal Problems/Diagnoses: 1. Acute respiratory failure. 2. Aspiration pneumonia with severe sepsis, present on admission. 3. Bronchiectasis with acute exacerbation. PMH: DM, gastroparesis, GERD GI: OGT present Skin: no wound noted Labs: (08/05) K 3.3 L, Glucose 158 206 H Meds: Solu-medrol, pepcid, probiotics, propofol, abx, insulin Ht: 64in Wt: 152lb BMI: 26.1kg/m2 IBW: 120lb Malnutrition Evaluation (08/05) The patient does not meet criteria for a specified degree of malnutrition at this time. Will re-evaluate at follow-up as appropriate. Nutrition Prescription (Diet Order): Glucerna @20mL/hr Estimated Nutritional Needs: Calories: 1242 1380kcal(18-20kcal/kg/d) Weight used : CBW Protein: 90 138g (1.3-2g/kg/d) Weight used: CBW Diet Adequacy: Not meeting calorie needs, Not meeting protein needs Diet Education Needs Assessment: Diet education indicated, but patient not appropriate for education at this time. Nutrition Care Level: mod (new TF) Nutrition Diagnosis: Inadequate oral intake related to current medical condition (intubated and ventilated) as evidenced by pt requiring EN as main source of nutrition. Goal: Patient will meet 75-100% of estimated needs by follow up Progress: N/A Interventions: Composition, Rate, Route, IVF Monitoring/Evaluation: Total energy intake, Total protein intake, Formula/Solution, IVF, Weight change, Labs, gastric tolerance Signed: Cecile St MS, RD, LD
[2018-08-05] MEDS: TOBRAMYCIN 40MG/ML 30ML MDV INH SCH ×2 (11:25→19:45)
[2018-08-05] MEDS: INSULIN GLARGINE 100 UNITS/ML VIAL SQ SCH (14:47)
--- NOTE | 2018-08-05 14:53 | NUR ---
LM REGARDING NEW CONSULT ON VOICEMAIL FOR DR POSADA
[2018-08-05] MEDS: ENOXAPARIN SOD INJ 40 MG/0.4 ML SYR SC SCH (16:12)
[2018-08-05] MEDS ORDERED: FUROSEMIDE INJ 10 MG/ML 2 ML VIAL IV NR (16:30)
[2018-08-05] MEDS: DOXYCYCLINE 100MG/NS 100ML 100 ML IV SCH (17:22)
[2018-08-05 20:16] LABS: ALANINE AMINOTRANSFERASE 90 IU/L (0-55); ALBUMIN 2.4 g/dL (3.5-5.0); ALBUMIN/GLOBULIN RATIO 0.9 (0.8-2.0); ALKALINE PHOSPHATASE 177 IU/L (40-150); ANION GAP 10.6 mmol/L (8-16); BLOOD UREA NITROGEN 13 mg/dL (7-26); BUN/CREATININE RATIO 20 (6-25); CALCIUM 8.7 mg/dL (8.4-10.2); CARBON DIOXIDE 23 mmol/L (22-29); CHLORIDE 106 mmol/L (98-107); CREATININE, SERUM 0.64 mg/dL (0.57-1.11); EST GLOMERULAR FILTRATION RATE > 60 ML/MIN (60-); GLUCOSE 291 mg/dL (74-118); POTASSIUM 3.6 mmol/L (3.5-5.1); SODIUM 136 mmol/L (136-145)
[2018-08-05] MEDS ORDERED: INSULIN GLARGINE 100 UNITS/ML VIAL SQ SCH (21:00)
[2018-08-05] MEDS ORDERED: METRONIDAZOLE 500MG/NS 100ML 100 ML IV SCH (22:00)
[2018-08-06] VITALS (24 sets, daily range): BP systolic 115–156; BP diastolic 64–87
[2018-08-06] MEDS: ACETAMINOPHEN 325 MG TAB NG PRN ×3 (00:10→11:49)
[2018-08-06] MEDS: INSULIN LISPRO 100 UNIT/1 ML 3ML VIAL SQ SCH ×4 (00:10→17:40)
[2018-08-06] MEDS: PROPOFOL IV EMULSION 10MG/ML 100 ML IV SCH ×7 (00:15→20:00)
--- NOTE | 2018-08-06 00:33 | Consultation ---
DATE OF CONSULTATION: ID Consult REASON FOR CONSULTATION: Fever/vent/atypical infection. Thank you Dr. Zepeda for asking me to see this patient. HISTORY OF PRESENT ILLNESS: The patient is a 53-year-old woman referred for fever/vent/atypical infection. The patient presented to the emergency department on 08/03/2018 with progressive shortness of breath, sputum production, and fever. There was no chest pain. She was recently discharged from another hospital, where she was hospitalized for pneumonia. The patient cannot be verified at this time. In the emergency department, she was noted to have temperature of 98.8 degrees Farenheit, pulse rate 97, respiratory rate 17, blood pressure 187/101, and oxygen saturation 95% (FiO2). Initial laboratory studies show 5930 with 93% segments, 1% bands, BUN 9, creatinine 0.65, AST 331, ALT 119, alkaline phosphatase 264, and total bilirubin 1.5. A chest x-ray showed patchy bibasilar opacities. PAST MEDICAL HISTORY: Diabetes mellitus type 1, bronchiectasis, gastroparesis, gastroesophageal reflux disease, and tubular adenoma. PAST SURGICAL HISTORY: Cholecystectomy, appendectomy, and hysterectomy. ALLERGIES: PENICILLIN. MEDICATIONS: The current antibiotics are IV piggyback q.8 hours, by inhalation q.12 hours, metronidazole 500 mg IV piggyback q.8 hours, and azithromycin 500 mg IV piggyback q.24 hours. IMMUNIZATIONS: She received pneumococcal vaccination in December 2017. FAMILY HISTORY: Noncontributory. SOCIAL HISTORY: She rarely drinks alcohol. No tobacco or recreational drug use. REVIEW OF SYSTEMS: As per history of present illness. PHYSICAL EXAMINATION: GENERAL: Acutely ill and on respiratory support. VITAL SIGNS: T-max 102.6, pulse rate 93, respiratory rate 18, and blood pressure 111/63. HEENT: Normocephalic. There is no icterus or injection of the conjunctivae. There is no ear or nasal discharge. Orally intubated. NECK: Supple. No meningismus. LUNGS: Rhonchi bilaterally. HEART: Normal S1 and S2. ABDOMEN: Soft and nontender. EXTREMITIES: There is no edema, clubbing, or cyanosis. SKIN: There is no acute erythema. DATA RECOVERY PLANNER: Mildly sedated, but arousable. Moves all extremities. LABORATORY AND DIAGNOSTICS: WBC 7301, hemoglobin 11.8, platelets 172,000, neutrophils 57, lymphocytes 23, monocytes 16, and basophils 1. BUN 10, creatinine 0.6, blood glucose 220, AST 145, ALT 81, alkaline phosphatase 176, and total bilirubin 1. Hemoglobin A1c 5.1. IMPRESSION: 1. Pneumonia present on admission. 2. Bronchiectasis. 3. Acute hypoxic respiratory failure, present on admission. 4. Elevated liver enzymes improving. 5. Gastroparesis. PLAN: 1. Await sputum culture results. 2. Switch azithromycin to doxycycline 100 mg IV piggyback q.12 hours in view of history of bird exposure. Stop metronidazole. MD BERTHA Cao/NADINE /[id number]
[2018-08-06] MEDS: IPRATROPIUM BROMIDE 0.02% 2.5 ML NEB NEB SCH ×6 (03:20→23:15)
[2018-08-06] MEDS: DOXYCYCLINE 100MG/NS 100ML 100 ML IV SCH ×2 (05:22→16:54)
[2018-08-06 05:30] LABS: BASOPHILS % 0.6 % (0.0-1.0); EOSINOPHILS % 0.6 % (0.0-6.0); HEMATOCRIT 35.5 % (34.2-44.1); HEMOGLOBIN 11.5 g/dL (12.0-16.0); LYMPHOCYTES # (AUTO) 0.7 (1.0-3.2); LYMPHOCYTES % 20.9 % (18.0-39.1); MEAN CORPUSCULAR HEMOGLOBIN 34.6 pg (28-32); MEAN CORPUSCULAR HGB CONC 32.4 g/dL (31-35); MEAN CORPUSCULAR VOLUME 106.9 fL (81-99); MONOCYTES # (AUTO) 0.3 (0.2-0.8); NEUTROPHILS # (AUTO) 2.4 (2.1-6.9); NEUTROPHILS % 69.9 % (38.7-80.0); PLATELET COUNT 149 x10e3/uL (140-360); RED BLOOD COUNT 3.32 x10e6/uL (3.6-5.1); RED CELL DISTRIBUTION WIDTH 16.9 % (11.7-14.4)
[2018-08-06 05:45] LABS: ALANINE AMINOTRANSFERASE 85 IU/L (0-55); ALBUMIN 2.4 g/dL (3.5-5.0); ALBUMIN/GLOBULIN RATIO 0.9 (0.8-2.0); ALKALINE PHOSPHATASE 160 IU/L (40-150); ANION GAP 13.6 mmol/L (8-16); BLOOD UREA NITROGEN 14 mg/dL (7-26); BUN/CREATININE RATIO 21 (6-25); CALCIUM 8.8 mg/dL (8.4-10.2); CARBON DIOXIDE 21 mmol/L (22-29); CHLORIDE 105 mmol/L (98-107); CREATININE, SERUM 0.66 mg/dL (0.57-1.11); EST GLOMERULAR FILTRATION RATE > 60 ML/MIN (60-); GLUCOSE 357 mg/dL (74-118); POTASSIUM 3.6 mmol/L (3.5-5.1); SODIUM 136 mmol/L (136-145)
--- NOTE | 2018-08-06 06:21 | Diagnostic Imaging Report ---
EXAMINATION: CHEST SINGLE (PORTABLE) INDICATION: Respiratory failure. Bibasilar pneumonia. COMPARISON: Chest x-ray 08/05/2018. 08/04/2018. FINDINGS: AP view TUBES and LINES: ET tube and nasogastric tube in good position. LUNGS: Lungs are well inflated. Diffuse patchy alveolar opacities bilaterally are improving PLEURA: No pleural effusion or pneumothorax. HEART AND MEDIASTINUM: Cardiac size is mildly enlarged. BONES AND SOFT TISSUES: No acute osseous lesion. Soft tissues are unremarkable. UPPER ABDOMEN: No free air under the diaphragm. IMPRESSION: Improving pulmonary edema. Superimposed multifocal pneumonia cannot be excluded. Signed by: Dr. Naren Son M.D. on 08/06/2018 6:18 AM
[2018-08-06] MEDS: CEFEPIME 2 GM/NS 0.9% 100 ML 100 ML IV SCH ×3 (06:24→21:02)
[2018-08-06] MEDS: BENZONATATE 100 MG CAP PO SCH ×3 (07:42→20:58)
[2018-08-06] MEDS: TOBRAMYCIN 40MG/ML 30ML MDV INH SCH ×2 (07:45→19:15)
--- NOTE | 2018-08-06 07:46 | NUR ---
0720 SEDATION TURNED OFF
[2018-08-06] MEDS ORDERED: LORAZEPAM INJ 2 MG/ML VIAL IV NR (08:30)
[2018-08-06] MEDS: LACTOBACILLUS ACIDOPHILUS CAPSULE PO SCH ×2 (08:38→16:54)
[2018-08-06] MEDS: FAMOTIDINE 20 MG/2 ML VIAL IV SCH ×2 (08:38→16:54)
[2018-08-06] MEDS ORDERED: LORAZEPAM INJ 2 MG/ML VIAL ONE (08:47)
[2018-08-06] MEDS: INSULIN GLARGINE 100 UNITS/ML VIAL SQ SCH ×2 (09:44→21:01)
--- NOTE | 2018-08-06 10:51 | Progress Note ---
DATE: Pulmonary Critical Care Progress Note SUBJECTIVE: The patient was seen by Infectious Disease yesterday. The antibiotics were changed to inhaled tobramycin, ceftazidime, and doxycycline. The patient also received Lasix and is negative about 800 mL. She was placed on a spontaneous breathing trial this morning, but started breathing in the low 30s. She still has small amounts of phlegm production. PHYSICAL EXAMINATION: VITAL SIGNS: The patient is afebrile to 101. The blood pressure is 146/77, saturation is 98%. HEENT: Shows no facial swelling or erythema. There is no oral endotracheal tube in place. LYMPHATIC: Shows no submandibular, cervical, or supraclavicular adenopathy. CARDIAC: Reveals regular rate and rhythm with normal S1 and S2. There are no murmurs or rubs. LUNGS: Auscultation of lungs reveals rhonchorous breath sounds bilaterally. There is no wheezing. ABDOMEN: Soft, nontender. There is no rebound or guarding. EXTREMITIES: Show no leg edema or calf tenderness. There is no cyanosis or clubbing. SKIN: Shows no rashes. NEUROLOGICAL: Shows no focal abnormalities. RADIOGRAPHIC DATA: Chest x-ray shows improving pulmonary edema with persistent opacities suggestive of pneumonia. LABORATORY DATA: Carbon dioxide is 21 and the sodium is 136 with a chloride of 105. The blood sugar is 357, AST is 97 and ALT is 85. Alkaline phosphatase is 160. IMPRESSION: 1. Acute respiratory failure. 2. Aspiration pneumonia with severe sepsis, present on admission. 3. Bronchiectasis with acute exacerbation. 4. Diabetic gastroparesis. 5. Gastroesophageal reflux. 6. Type 1 diabetes. PLAN: 1. The patient is tachypneic and we will probably need to be switched back to assist-control. We will re-attempt a spontaneous breathing trial again tomorrow. 2. Continue current antibiotics. 3. Continue Diprivan with Ativan as needed for sedation. 4. Continue to monitor blood sugars and adjust insulin as needed. 5. Continue enteral feedings. 6. Case discussed with family, nursing staff, and Respiratory. Greater than 35 minutes in direct critical care time. MD HEIDE Teague/NADINE /[id number]
[2018-08-06] MEDS ORDERED: SODIUM CHLORIDE 0.9% 250ML 250 ML ONE (12:09)
[2018-08-06 13:23] LABS: ABG PCO2 35 mmHg (41-51); ABG PH 7.42 (7.31-7.41); ABG PO2 111 mmHg (80-105)
[2018-08-06 13:24] LABS: ABG HCO3 23 mmol/L (23-28)
[2018-08-06] MEDS: ENOXAPARIN SOD INJ 40 MG/0.4 ML SYR SC SCH (16:54)
[2018-08-07] VITALS (23 sets, daily range): BP systolic 107–177; BP diastolic 57–87
[2018-08-07] MEDS: INSULIN LISPRO 100 UNIT/1 ML 3ML VIAL SQ SCH ×5 (00:02→23:33)
[2018-08-07] MEDS: PROPOFOL IV EMULSION 10MG/ML 100 ML IV SCH ×5 (00:20→17:54)
[2018-08-07] MEDS: IPRATROPIUM BROMIDE 0.02% 2.5 ML NEB NEB SCH ×6 (03:15→23:00)
[2018-08-07] MEDS: DOXYCYCLINE 100MG/NS 100ML 100 ML IV SCH ×2 (04:10→17:45)
[2018-08-07 04:48] LABS: BASOPHILS % 0.6 % (0.0-1.0); EOSINOPHILS # (AUTO) 0.1 (0.0-0.4); EOSINOPHILS % 3.2 % (0.0-6.0); LYMPHOCYTES # (AUTO) 0.9 (1.0-3.2); LYMPHOCYTES % 28.3 % (18.0-39.1); MEAN CORPUSCULAR HEMOGLOBIN 34.3 pg (28-32); MEAN CORPUSCULAR HGB CONC 32.4 g/dL (31-35); MEAN CORPUSCULAR VOLUME 105.9 fL (81-99); MONOCYTES # (AUTO) 0.3 (0.2-0.8); MONOCYTES % 9.6 % (4.4-11.3); NEUTROPHILS # (AUTO) 1.8 (2.1-6.9); PLATELET COUNT 161 x10e3/uL (140-360); RED BLOOD COUNT 3.21 x10e6/uL (3.6-5.1); RED CELL DISTRIBUTION WIDTH 16.2 % (11.7-14.4)
[2018-08-07 05:08] LABS: ALANINE AMINOTRANSFERASE 67 IU/L (0-55); ALBUMIN 2.4 g/dL (3.5-5.0); ALBUMIN/GLOBULIN RATIO 0.8 (0.8-2.0); ALKALINE PHOSPHATASE 162 IU/L (40-150); ANION GAP 9.9 mmol/L (8-16); BLOOD UREA NITROGEN 11 mg/dL (7-26); BUN/CREATININE RATIO 20 (6-25); CALCIUM 8.9 mg/dL (8.4-10.2); CARBON DIOXIDE 26 mmol/L (22-29); CHLORIDE 106 mmol/L (98-107); CREATININE, SERUM 0.56 mg/dL (0.57-1.11); EST GLOMERULAR FILTRATION RATE > 60 ML/MIN (60-); GLUCOSE 238 mg/dL (74-118); MAGNESIUM 1.4 MG/DL (1.3-2.1); SODIUM 139 mmol/L (136-145)
[2018-08-07 05:25] LABS: POTASSIUM 2.9 mmol/L (3.5-5.1)
[2018-08-07] MEDS: CEFEPIME 2 GM/NS 0.9% 100 ML 100 ML IV SCH ×3 (05:53→21:07)
[2018-08-07] MEDS ORDERED: MAGNESIUM SULFATE 2GM/50ML 50 ML IV ONE (06:15)
[2018-08-07] MEDS ORDERED: POTASSIUM CHLORIDE 20MEQ/15ML UDC NG NR (06:15)
[2018-08-07] MEDS: TOBRAMYCIN 40MG/ML 30ML MDV INH SCH ×2 (07:15→23:00)
[2018-08-07] MEDS ORDERED: FUROSEMIDE INJ 10 MG/ML 2 ML VIAL IV NR (07:45)
[2018-08-07] MEDS ORDERED: METHYLPREDNISOLONE SOD SUCC 40 MG/ML VIAL 1ML ONE (07:58)
[2018-08-07] MEDS ORDERED: METHYLPREDNISOLONE SOD SUCC 40 MG/ML VIAL 1ML IV NR (08:00)
[2018-08-07] MEDS: INSULIN GLARGINE 100 UNITS/ML VIAL SQ SCH ×2 (09:00→20:35)
[2018-08-07 10:51] LABS: EOSINOPHILS % (MANUAL) 2 % (0-7); LYMPHOCYTES % (MANUAL) 39 % (19-48); METAMYELOCYTES % (MANUAL) 1 % (0-0); MONOCYTES % (MANUAL) 10 % (3.4-9.0); MYELOCYTES % (MANUAL) 1 % (0-0); NEUTROPHILS % (MANUAL) 46 % (40-74)
[2018-08-07 10:52] LABS: ANISOCYTOSIS SLIGHT; PLATELET ESTIMATE ADEQUATE; PLATELET MORPHOLOGY COMMENT FEW LARGE; RBC MORPHOLOGY COMMENT ABNORMAL
--- NOTE | 2018-08-07 10:56 | Progress Note ---
DATE: Pulmonary Critical Care Progress Note SUBJECTIVE: The patient had her sedation held this morning, was placed on a spontaneous breathing trial. She became tachypneic in the mid 30s and had to be placed back on assist-control. The patient has some wheezing and congestion. She does not have fevers. She is not complaining of pain. OBJECTIVE: VITAL SIGNS: Temperature is 100.3 and the blood pressure is 155/78. The pulse is 90. Saturation is 95%. HEENT: Shows no facial swelling or erythema. There is an oral endotracheal tube in place. LYMPHATIC: Shows no submandibular, cervical, or supraclavicular adenopathy. CARDIAC: Reveals a regular rate and rhythm with a normal S1, S2. There are no murmurs or rubs. LUNGS: Auscultation of lungs shows wheezing in both lung wade on expiration. ABDOMEN: Soft and nontender. There is no rebound or guarding. EXTREMITIES: Show no leg edema or calf tenderness. There is no cyanosis or clubbing. SKIN: Shows no rashes. LABORATORY DATA: White blood cell count is 3.1 and hemoglobin 11. The platelet count is 161. The potassium is 2.9 and the BUN to creatinine is 11 to 0.56. The blood sugar is 220 to 240. RADIOGRAPHIC DATA: Chest x-ray shows improving pulmonary edema. IMPRESSION: 1. Acute respiratory failure. 2. Pneumonia, present on admission with severe sepsis. 3. Bronchiectasis with acute exacerbation. 4. Type 1 diabetes. 5. Gastroparesis. 6. Gastroesophageal reflux. PLAN: 1. The patient will receive another 20 mg of Lasix along with some Solu-Medrol now. 2. We will re-attempt spontaneous breathing trial after treatment of the bronchospasm and fluid overload. 3. Continue antibiotics. 4. Continue to monitor blood sugars and insulin closely. 5. Await culture results. 6. Case discussed with family, respiratory, and nursing. 7. Greater than 35 minutes in direct critical care time. Andrey Mesa MD [facility]/MODL /[id number]
[2018-08-07] MEDS: LORAZEPAM INJ 2 MG/ML VIAL IV PRN ×2 (11:00→23:14)
[2018-08-07] MEDS: BENZONATATE 100 MG CAP PO SCH ×3 (11:10→20:35)
[2018-08-07] MEDS: FAMOTIDINE 20 MG/2 ML VIAL IV SCH ×2 (11:10→17:45)
[2018-08-07] MEDS: LACTOBACILLUS ACIDOPHILUS CAPSULE PO SCH ×2 (11:10→18:09)
--- NOTE | 2018-08-07 12:30 | Diagnostic Imaging Report ---
EXAMINATION: CHEST SINGLE (PORTABLE) INDICATION: Respiratory failure. COMPARISON: Chest radiograph 08/06/2018. FINDINGS: TUBES and LINES: ET tube is unchanged. Enteric tube courses into the stomach, the tip is not seen. LUNGS: Improved bilateral opacities with patchy opacity in the right lower lung persisting. No new consolidation. PLEURA: No pleural effusion or pneumothorax. HEART AND MEDIASTINUM: The cardiomediastinal silhouette is unchanged. BONES AND SOFT TISSUES: No acute osseous abnormality. UPPER ABDOMEN: No free air under the diaphragm. IMPRESSION: Improving bilateral opacities which may reflect improving edema. Patchy opacity in the right lower lung may represent alveolar edema or pneumonia in the appropriate clinical setting. Signed by: Dr. Jonatan Rendon MD on 08/07/2018 12:26 PM
--- NOTE | 2018-08-07 14:28 | NUR ---
Follow-up Note RD Recommendation(s) for Physician: - Rec continuous TF with Vital HP @50mL/hr, providing 1200kcal, 105g protein, 1003mL H2O. (Order placed per Dr. Mesa approval) - Free water flushes per MD discretion - Check daily labs, gastric tolerance, weights Plan of Care: RD following, monitoring for tolerance and adequacy, TF rec Nutrition reason for involvement: Follow up RD Assessment 08/07 Pt was discussed during AM rounds. Failed to wean off the vent. Pt remained sedated, ventilated and intubated. ISADORA Crook turned on TF with Vital HP running at goal. Per RN, pt tolerated TF well so far. Will continue to monitor and follow. 08/05 Chart reviewed. 53yo F, who was admitted for congestion and difficulty expectorating the phlegm. The patient was intubated yesterday afternoon and transferred to the intensive care unit. Visited pt in the room. On vent with IVF @10mL/hr and propofol @4.1mL/hr. No pressor meds ordered. TF with Glucerna running at 40mL/hr. Glucose 158 206 with Solu-medrol and insulin. No family on bedside to provide hx. Received telephone order from Dr. Mesa to change TF order. Communicate TF rec with ISADORA Arreguin. Will continue to monitor and follow. Principal Problems/Diagnoses: 1. Acute respiratory failure. 2. Aspiration pneumonia with severe sepsis, present on admission. 3. Bronchiectasis with acute exacerbation. PMH: DM, gastroparesis, GERD GI: OGT present Skin: no wound noted Labs: (08/07) K 2.9 L, creatinine 0.56 L, BG 230 287 H (08/05) K 3.3 L, Glucose 158 206 H Meds: pepcid, probiotic, insulin, abx, propofol (titrate) Ht: 64in Wt: 152lb; 164.31lb BMI: 26.1kg/m2 IBW: 120lb Malnutrition Evaluation (08/05) The patient does not meet criteria for a specified degree of malnutrition at this time. Will re-evaluate at follow-up as appropriate. Nutrition Prescription (Diet Order): Vital HP @50mL/hr Estimated Nutritional Needs: Calories: 1242 1380kcal (18-20kcal/kg/d) Weight used : CBW Protein: 90 138g (1.3-2g/kg/d) Weight used: CBW Diet Adequacy: meeting calorie needs, meeting protein needs Diet Education Needs Assessment: Diet education indicated, but patient not appropriate for education at this time. Nutrition Care Level: mod (new TF) Nutrition Diagnosis: Inadequate oral intake related to current medical condition (intubated and ventilated) as evidenced by pt requiring EN as main source of nutrition. Goal: Patient will meet 75-100% of estimated needs by follow up Progress: Goal met Interventions: Composition, Rate, Route, IVF Monitoring/Evaluation: Total energy intake, Total protein intake, Formula/Solution, IVF, Weight change, Labs, gastric tolerance Signed: Cecile St, MS, RD, LD
[2018-08-07] MEDS ORDERED: POTASSIUM CHLORIDE 20 MEQ TAB CR PO ONE (15:30)
[2018-08-07] MEDS: ENOXAPARIN SOD INJ 40 MG/0.4 ML SYR SC SCH (17:45)
[2018-08-07] MEDS ORDERED: DEXMEDETOMIDINE HCL 200 MCG in SODIUM CHLORIDE 0.9% 50ML 48 ML IV PRN (19:15)
[2018-08-07] MEDS: DEXMEDETOMIDINE 200MCG/NS 50ML 50 ML IV PRN (22:41)
[2018-08-08] VITALS (23 sets, daily range): BP systolic 108–169; BP diastolic 60–83
[2018-08-08] MEDS: LORAZEPAM INJ 2 MG/ML VIAL IV PRN (03:32)
[2018-08-08] MEDS: DEXMEDETOMIDINE 200MCG/NS 50ML 50 ML IV PRN ×2 (03:56→20:30)
[2018-08-08] MEDS: DOXYCYCLINE 100MG/NS 100ML 100 ML IV SCH ×2 (04:01→18:36)
[2018-08-08] MEDS: IPRATROPIUM BROMIDE 0.02% 2.5 ML NEB NEB SCH ×6 (04:26→22:50)
[2018-08-08] MEDS: CEFEPIME 2 GM/NS 0.9% 100 ML 100 ML IV SCH ×3 (05:18→21:38)
[2018-08-08 05:21] LABS: BASOPHILS % 0.3 % (0.0-1.0); EOSINOPHILS # (AUTO) 0.1 (0.0-0.4); EOSINOPHILS % 2.7 % (0.0-6.0); HEMATOCRIT 36.1 % (34.2-44.1); LYMPHOCYTES # (AUTO) 1.2 (1.0-3.2); MEAN CORPUSCULAR HEMOGLOBIN 34.4 pg (28-32); MEAN CORPUSCULAR HGB CONC 33.2 g/dL (31-35); MEAN CORPUSCULAR VOLUME 103.4 fL (81-99); MONOCYTES # (AUTO) 0.3 (0.2-0.8); NEUTROPHILS # (AUTO) 1.8 (2.1-6.9); NEUTROPHILS % 52.7 % (38.7-80.0); PLATELET COUNT 213 x10e3/uL (140-360); RED BLOOD COUNT 3.49 x10e6/uL (3.6-5.1)
[2018-08-08] MEDS: INSULIN LISPRO 100 UNIT/1 ML 3ML VIAL SQ SCH ×4 (05:29→23:41)
[2018-08-08 05:50] LABS: ALANINE AMINOTRANSFERASE 59 IU/L (0-55); ALBUMIN 2.6 g/dL (3.5-5.0); ALBUMIN/GLOBULIN RATIO 0.9 (0.8-2.0); ALKALINE PHOSPHATASE 182 IU/L (40-150); ANION GAP 11.2 mmol/L (8-16); BLOOD UREA NITROGEN 16 mg/dL (7-26); BUN/CREATININE RATIO 30 (6-25); CALCIUM 9.2 mg/dL (8.4-10.2); CARBON DIOXIDE 27 mmol/L (22-29); CHLORIDE 107 mmol/L (98-107); CREATININE, SERUM 0.53 mg/dL (0.57-1.11); EST GLOMERULAR FILTRATION RATE > 60 ML/MIN (60-); GLUCOSE 151 mg/dL (74-118); MAGNESIUM 1.9 MG/DL (1.3-2.1); POTASSIUM 3.2 mmol/L (3.5-5.1); SODIUM 142 mmol/L (136-145)
[2018-08-08 07:09] LABS: EOSINOPHILS % (MANUAL) 4 % (0-7); LYMPHOCYTES % (MANUAL) 40 % (19-48); MONOCYTES % (MANUAL) 2 % (3.4-9.0); NEUTROPHILS % (MANUAL) 54 % (40-74)
[2018-08-08 07:10] LABS: ANISOCYTOSIS SLIGHT; PLATELET ESTIMATE ADEQUATE; PLATELET MORPHOLOGY COMMENT NORMAL; RBC MORPHOLOGY COMMENT NORMAL
[2018-08-08] MEDS: TOBRAMYCIN 40MG/ML 30ML MDV INH SCH ×2 (07:25→19:50)
[2018-08-08] MEDS: BENZONATATE 100 MG CAP PO SCH ×3 (09:00→21:00)
--- NOTE | 2018-08-08 09:07 | Diagnostic Imaging Report ---
EXAMINATION: CHEST SINGLE (PORTABLE) INDICATION: Respiratory failure. COMPARISON: Chest radiograph 08/07/2018. FINDINGS: TUBES and LINES: ET tube is unchanged. Enteric tube courses into the stomach, the tip is not seen. LUNGS: Similar appearance of patchy opacities in the right mid and lower lung zones. No new consolidation. PLEURA: No pleural effusion or pneumothorax. HEART AND MEDIASTINUM: The cardiomediastinal silhouette is unchanged. BONES AND SOFT TISSUES: No acute osseous abnormality. UPPER ABDOMEN: No free air under the diaphragm. IMPRESSION: Similar appearance of patchy opacities in the right mid and lower lung zones, which may represent pulmonary edema or pneumonia in the appropriate clinical setting. No new consolidation. Lines and tubes as above. No evidence of pneumothorax. Signed by: Dr. Jonatan Rendon MD on 08/08/2018 9:03 AM
[2018-08-08] MEDS: INSULIN GLARGINE 100 UNITS/ML VIAL SQ SCH ×2 (09:45→21:38)
[2018-08-08] MEDS: FAMOTIDINE 20 MG/2 ML VIAL IV SCH ×2 (09:46→18:36)
[2018-08-08] MEDS: LACTOBACILLUS ACIDOPHILUS CAPSULE PO SCH ×2 (09:46→18:36)
--- NOTE | 2018-08-08 09:57 | Progress Note ---
DATE: Pulmonary Critical Care Progress Note SUBJECTIVE: The patient had some agitation this morning, received some Ativan from the nurses. She is now somnolent, but arousable. Her propofol and enteral feedings have been held in preparation for spontaneous breathing trial. She has some abdominal distention. She has not had a bowel movement several days. She does not complain of pain or fevers. PHYSICAL EXAMINATION: VITAL SIGNS: The patient is afebrile. The blood pressure is 137/74 and the pulse ox is 99%. She is on a PRVC at a rate of 12 with a tidal volume of 400, but is breathing at the backup rate. HEENT: Shows no facial swelling or erythema. The nasal mucosa is normal. She has a nasogastric tube in place. She has no oral endotracheal tube in place. LYMPHATIC: Shows no submandibular, cervical, or supraclavicular adenopathy. CARDIAC: Reveals regular rate and rhythm with normal S1, S2. There are no murmurs or rubs heard. LUNGS: Auscultation of lungs reveals rhonchorous breath sounds bilaterally. There is no wheezing. ABDOMEN: Soft, nontender. There is no rebound or guarding. EXTREMITIES: Show no leg edema or calf tenderness. There is no cyanosis, clubbing. SKIN: Shows no rashes. NEUROLOGICAL: Shows no focal abnormalities. IMPRESSION: 1. Aspiration pneumonia with sepsis, present on admission. 2. Bronchiectasis with acute exacerbation. 3. Type 1 diabetes. 4. Gastroparesis. 5. Gastroesophageal reflux. PLAN: 1. Continue to hold sedation. 2. Spontaneous breathing trial and probable extubation today. 3. Continue current antibiotics and adjust according to culture results. 4. Monitor blood sugars and insulin closely. 5. Discussed case with family about respiratory and nursing, and Dr. Zepeda. 6. Greater than 35 minutes in direct critical care time. Andrey Mesa MD [facility]/MODL /[id number]
[2018-08-08] MEDS ORDERED: POTASSIUM CHLORIDE 20MEQ/15ML UDC NG ONE (10:00)
[2018-08-08] MEDS ORDERED: POTASSIUM CHLORIDE 20MEQ/100ML 200 ML IV ONE (10:30)
[2018-08-08] MEDS ORDERED: LIDOCAINE HCL 2% LOCAL 20 ML VIAL ONE (17:06)
[2018-08-08 17:35] LABS: ABG HCO3 25 mmol/L (23-28); ABG PCO2 37 mmHg (41-51); ABG PH 7.45 (7.31-7.41); ABG PO2 90 mmHg (80-105)
[2018-08-08] MEDS ORDERED: IOPAMIDOL 370 MG/ML 200 ML INFUS..BTL INJ ONE (18:21)
[2018-08-08] MEDS ORDERED: SODIUM CHLORIDE 0.9% 50ML 50 ML ONE (18:21)
--- NOTE | 2018-08-08 18:34 | Diagnostic Imaging Report ---
EXAMINATION: CHEST SINGLE (PORTABLE) INDICATION: Confirm central line placement. COMPARISON: Chest radiograph 08/08 2018 at 6:30 AM. FINDINGS: Somewhat limited study secondary to motion and portable technique. TUBES and LINES: Interval placement of a right IJ central line terminating in the expected location of the mid SVC. ET tube is unchanged and terminates 7.6 cm above the james. Enteric tube courses into the stomach, the tip is not seen. LUNGS: Slightly increased interstitial opacities and patchy opacities at lung bases. No new consolidation. PLEURA: No pleural effusion or definite pneumothorax. HEART AND MEDIASTINUM: The cardiomediastinal silhouette is unchanged. BONES AND SOFT TISSUES: No acute osseous abnormality. UPPER ABDOMEN: No free air under the diaphragm. IMPRESSION: Interval placement of a right IJ central line terminating in the expected location of the mid SVC. Other lines and tubes as above. No definite pneumothorax. Slightly increased interstitial and lower lung zone predominant patchy opacities. The findings could represent pulmonary edema or pneumonia in the appropriate clinical setting. Signed by: Dr. Jonatan Rendon MD on 08/08/2018 6:30 PM
[2018-08-08] MEDS: ENOXAPARIN SOD INJ 40 MG/0.4 ML SYR SC SCH (18:36)
--- NOTE | 2018-08-08 19:00 | Diagnostic Imaging Report ---
EXAM: CT Chest WITH contrast - Pulmonary Embolism Protocol INDICATION: Shortness of breath, status post intubation, query pulmonary embolism. COMPARISON: Chest radiograph 08/08/2018. CT chest 08/03/2018. TECHNIQUE: Chest was scanned utilizing a multidetector helical scanner from the lung apex through the level of the diaphragm after administration of IV contrast. Thin section reconstructions were obtained with special concentration on the pulmonary arteries. Coronal and sagittal reformations were obtained. Pulmonary embolism protocol was performed. IV CONTRAST: 100 cc of Isovue-370. RADIATION DOSE: Total DLP: 515.9 mGy*cm COMPLICATIONS: None FINDINGS: LINES/ TUBES: Endotracheal tube terminates in the mid trachea. Right IJ non-tunneled central line terminates in the lower SVC. Enteric tube courses into the stomach, the tip is not seen. PULMONARY ARTERIES: The study is adequate for evaluation of pulmonary embolism to the level of the segmental pulmonary arteries. The subsegmental pulmonary arteries are not well opacified. Main pulmonary artery is enlarged and measures 3.5 cm in diameter. No filling defect is identified within the pulmonary arteries to the segmental level. LUNGS AND AIRWAYS: The central airways are patent. There is diffuse calcification of the tracheobronchial tree. There is diffuse mild bronchial wall thickening. There are increased and new multifocal multifocal opacities with consolidation most confluent in the bilateral lower lobes. Patchy groundglass opacities are present in the bilateral upper lobes, right middle lobe, and lingula. Diffuse opacities limits evaluation for underlying pulmonary nodule. PLEURA: Trace right pleural effusion. No evidence of pneumothorax. HEART AND MEDIASTINUM: The thyroid gland is unremarkable. Prominent mediastinal lymph nodes are again noted, likely reactive. Mild cardiomegaly. No evidence of pericardial effusion. Scattered mild coronary calcifications. Secretions are noted within the esophagus. UPPER ABDOMEN: Limited contrast-enhanced views of the upper abdomen. Diffuse hepatic steatosis. BONES/SOFT TISSUES: No acute radiographic abnormality. No suspicious lytic or blastic lesions. IMPRESSION: No evidence of pulmonary embolism to the level of the segmental pulmonary arteries. Enlarged main pulmonary artery, suggestive of pulmonary arterial hypertension. Increasing and new sites of multifocal consolidative and groundglass opacities, consistent with multifocal pneumonia or aspiration. Trace right pleural effusion. Note is made of secretions within the esophagus, which may increase aspiration risk. Suggest clinical correlation. Diffuse hepatic steatosis. Signed by: Dr. Jonatan Rendon MD on 08/08/2018 6:57 PM
--- NOTE | 2018-08-08 19:44 | Operative Report ---
DATE OF PROCEDURE: SURGEON: Andrey Mesa MD PROCEDURE: Ultrasound-guided central line placement. PREOPERATIVE DIAGNOSES: Type 1 diabetes, hypokalemia, and hypertension. POSTOPERATIVE DIAGNOSIS: Type 1 diabetes, hypokalemia, and hypertension. CONSENT: Consent was obtained from the . ANESTHESIA: A 1% lidocaine was used for local anesthesia. PROCEDURE IN DETAIL: The right internal jugular vein was located with the ultrasound machine. It was [id number] size, but patent. The patient was then prepped sterilely. A full length drape was used. A 1% lidocaine was used to anesthetize here between the heads of the sternocleidomastoid. Ultrasound was used to relocate the internal jugular vein and a 16-gauge needle was used to cannulate the right internal jugular vein under direct ultrasound guidance. Wire was placed through the needle and the needle was removed. The dilator was used and a triple-lumen catheter was placed over the wire by the Seldinger technique. All the ports were flushed. COMPLICATIONS: None. ESTIMATED BLOOD LOSS: None. Andrey Mesa MD [facility]L /[id number]
[2018-08-08] MEDS: PROPOFOL IV EMULSION 10MG/ML 100 ML IV SCH (20:30)
[2018-08-09] VITALS (28 sets, daily range): BP systolic 100–183; BP diastolic 54–98
[2018-08-09] MEDS: PROPOFOL IV EMULSION 10MG/ML 100 ML IV SCH ×2 (02:00→06:04)
[2018-08-09] MEDS: IPRATROPIUM BROMIDE 0.02% 2.5 ML NEB NEB SCH ×6 (02:05→23:15)
[2018-08-09] MEDS: CHLORASEPTIC SPRAY 177 ML BTL MM PRN ×4 (03:00→23:00)
[2018-08-09] MEDS: DEXMEDETOMIDINE 200MCG/NS 50ML 50 ML IV PRN (03:26)
[2018-08-09] MEDS: DOXYCYCLINE 100MG/NS 100ML 100 ML IV SCH ×2 (03:56→16:15)
[2018-08-09 05:00] LABS: EOSINOPHILS # (AUTO) 0.1 (0.0-0.4); EOSINOPHILS % 4.1 % (0.0-6.0); HEMATOCRIT 36.3 % (34.2-44.1); HEMOGLOBIN 11.6 g/dL (12.0-16.0); LYMPHOCYTES # (AUTO) 0.9 (1.0-3.2); LYMPHOCYTES % 30.7 % (18.0-39.1); MEAN CORPUSCULAR HEMOGLOBIN 33.9 pg (28-32); MEAN CORPUSCULAR VOLUME 106.1 fL (81-99); MONOCYTES # (AUTO) 0.4 (0.2-0.8); MONOCYTES % 11.8 % (4.4-11.3); NEUTROPHILS # (AUTO) 1.5 (2.1-6.9); NEUTROPHILS % 52.1 % (38.7-80.0); PLATELET COUNT 212 x10e3/uL (140-360); RED BLOOD COUNT 3.42 x10e6/uL (3.6-5.1); RED CELL DISTRIBUTION WIDTH 15.8 % (11.7-14.4)
[2018-08-09] MEDS: CEFEPIME 2 GM/NS 0.9% 100 ML 100 ML IV SCH ×3 (05:14→21:10)
[2018-08-09 05:21] LABS: ALANINE AMINOTRANSFERASE 44 IU/L (0-55); ALBUMIN 2.4 g/dL (3.5-5.0); ALBUMIN/GLOBULIN RATIO 0.8 (0.8-2.0); ALKALINE PHOSPHATASE 174 IU/L (40-150); ANION GAP 10.8 mmol/L (8-16); BLOOD UREA NITROGEN 14 mg/dL (7-26); BUN/CREATININE RATIO 27 (6-25); CALCIUM 9.1 mg/dL (8.4-10.2); CARBON DIOXIDE 25 mmol/L (22-29); CHLORIDE 108 mmol/L (98-107); CREATININE, SERUM 0.51 mg/dL (0.57-1.11); EST GLOMERULAR FILTRATION RATE > 60 ML/MIN (60-); GLUCOSE 152 mg/dL (74-118); POTASSIUM 3.8 mmol/L (3.5-5.1); SODIUM 140 mmol/L (136-145)
[2018-08-09] MEDS: INSULIN LISPRO 100 UNIT/1 ML 3ML VIAL SQ SCH ×3 (06:05→17:49)
--- NOTE | 2018-08-09 06:41 | Diagnostic Imaging Report ---
EXAMINATION: CHEST SINGLE (PORTABLE) INDICATION: Respiratory failure. COMPARISON: CT chest 08/08/2018. Chest x-ray 08/08/2018. FINDINGS: AP view TUBES and LINES: Right IJ central line with tip at mid SVC. Endotracheal tube remaining good position. Nasogastric tube course of the diaphragm. LUNGS: Lungs are well inflated. Slight improvement in interstitial opacities in the left midlung. Questionable increase in left basilar atelectasis. Stable right lung base interstitial and alveolar opacities. PLEURA: No pleural effusion or pneumothorax. HEART AND MEDIASTINUM: The cardiomediastinal silhouette is unremarkable. BONES AND SOFT TISSUES: No acute osseous lesion. Soft tissues are unremarkable. UPPER ABDOMEN: No free air under the diaphragm. IMPRESSION: Overall unchanged interstitial and lower lung zone predominant patchy airspace opacities. This could represent pulmonary edema or pneumonia in the appropriate clinical setting. Signed by: Dr. Naren Son M.D. on 08/09/2018 6:37 AM
[2018-08-09] MEDS: TOBRAMYCIN 40MG/ML 30ML MDV INH SCH ×2 (07:00→19:25)
[2018-08-09] MEDS: LACTOBACILLUS ACIDOPHILUS CAPSULE PO SCH ×2 (08:19→16:15)
[2018-08-09] MEDS: FAMOTIDINE 20 MG/2 ML VIAL IV SCH ×2 (08:20→16:15)
[2018-08-09] MEDS: BENZONATATE 100 MG CAP PO SCH ×3 (08:20→21:10)
[2018-08-09] MEDS: INSULIN GLARGINE 100 UNITS/ML VIAL SQ SCH ×2 (08:27→21:00)
--- NOTE | 2018-08-09 09:42 | Progress Note ---
DATE: Pulmonary Critical Care Progress Note SUBJECTIVE: The patient went for a CTA of the chest yesterday. The patient had no pulmonary emboli, but did have some new infiltrates in the lungs and some increased secretions in the esophagus. The patient was placed on spontaneous breathing trial again this morning. She is on a pressure support of 10 and a CPAP of 5 and is breathing 33 times a minute. She is not anxious or agitated. OBJECTIVE: VITAL SIGNS: The patient is afebrile. The blood pressure is 115/61 and the pulse is 74. HEENT: Shows no facial swelling or erythema. There is a nasogastric tube in place. There is a right IJ line in place. The site looks clean. There is no drainage. CARDIAC: Reveals a regular rate and rhythm with a normal S1 and S2. There are no murmurs or rubs. LUNGS: Auscultation of lungs reveals rhonchorous breath sounds bilaterally. There is no wheezing. ABDOMEN: Soft and nontender. There is no rebound or guarding. EXTREMITIES: Examination of the extremities shows no leg edema or calf tenderness. There is no cyanosis or clubbing. SKIN: Shows no rashes. NEUROLOGICAL: Shows no focal abnormalities. LABORATORY DATA: White blood cell count is 2.96 with a hemoglobin of 11.6 and a platelet count of 212. The BUN to creatinine ratio is normal. The other electrolytes are within normal limits. The glucose is 200 to 250. Blood gas is 7.45, 37, 90, and 25. IMPRESSION: 1. Aspiration pneumonia. 2. Acute respiratory failure. 3. Persistent pulmonary infiltrates. 4. Bronchiectasis with acute exacerbation. 5. Type 1 diabetes. 6. Gastroparesis. 7. Gastroesophageal reflux. 8. Leukopenia. PLAN: 1. Continue current antibiotics and discuss with Infectious Disease. 2. Respiratory viral panel. 3. Measure CVP. 4. Consider diuresis depending on CVP results. 5. Await repeat ABG and work towards extubation. 6. Case discussed with Dr. Zepeda, Respiratory, nursing, and . Greater than 35 minutes in direct critical care time. Andrey Mesa MD [facility] /[id number]
[2018-08-09] MEDS ORDERED: BISACODYL 10 MG SUPP PR ONE (10:00)
[2018-08-09 11:03] LABS: EOSINOPHILS % (MANUAL) 4 % (0-7); LYMPHOCYTES % (MANUAL) 31 % (19-48); MONOCYTES % (MANUAL) 9 % (3.4-9.0)
[2018-08-09 11:04] LABS: BAND NEUTROPHILS % (MANUAL) 5 %; NEUTROPHILS % (MANUAL) 51 % (40-74); PLATELET ESTIMATE ADEQUATE; PLATELET MORPHOLOGY COMMENT NORMAL
[2018-08-09 11:05] LABS: RBC MORPHOLOGY COMMENT NORMAL
[2018-08-09] MEDS ORDERED: SODIUM CHLORIDE 0.9% 250ML 250 ML ONE (14:12)
[2018-08-09] MEDS: GUAIFENESIN/CODEINE 10 ML CUP PO PRN ×2 (14:20→18:39)
[2018-08-09] MEDS ORDERED: METHYLPREDNISOLONE SOD SUCC 40 MG/ML VIAL 1ML IV ONE (14:30)
[2018-08-09 14:39] LABS: COLOR,URINE YELLOW (YELLOW)
[2018-08-09 14:40] LABS: CLARITY,URINE HAZY (CLEAR); LEUKOCYTE ESTERASE ,URINE NEGATIVE (NEGATIVE); NITRITE,URINE NEGATIVE (NEGATIVE)
[2018-08-09 14:41] LABS: KETONES,URINE NEGATIVE (NEGATIVE); PROTEIN,URINE DIPSTICK 2+ (NEGATIVE)
[2018-08-09 14:43] LABS: URINE UROBILINOGEN 0.2 mg/dL (0.2 - 1)
[2018-08-09 14:44] LABS: BACTERIA,URINE FEW /HPF; BILIRUBIN,URINE 2+ (NEGATIVE); EPITHELIAL CELLS,URINE FEW /LPF; RBC,URINE 0-5 /HPF (0-5); WBC,URINE (MAN) 0-5 /HPF (0-5)
--- NOTE | 2018-08-09 15:20 | NUR ---
pt extubate today, will hold bedside swallow evaluation until 08/10/2018
[2018-08-09] MEDS: ENOXAPARIN SOD INJ 40 MG/0.4 ML SYR SC SCH (16:15)
[2018-08-09] MEDS: CLONIDINE HCL 0.1 MG TAB PO PRN (18:30)
--- NOTE | 2018-08-09 21:49 | NUR ---
Spoke to Dr. Penelope Limon regarding patient's status. Ok to d/c CVP measurement.
[2018-08-10] VITALS (33 sets, daily range): BP systolic 131–200; BP diastolic 69–104
[2018-08-10] MEDS: GUAIFENESIN/CODEINE 10 ML CUP PO PRN ×3 (00:22→15:04)
[2018-08-10] MEDS: CLONIDINE HCL 0.1 MG TAB PO PRN (01:05)
[2018-08-10] MEDS: IPRATROPIUM BROMIDE 0.02% 2.5 ML NEB NEB SCH ×6 (03:05→23:10)
[2018-08-10] MEDS: DOXYCYCLINE 100MG/NS 100ML 100 ML IV SCH ×2 (04:29→17:05)
[2018-08-10 05:12] LABS: BASOPHILS % 0.5 % (0.0-1.0); HEMATOCRIT 34.6 % (34.2-44.1); HEMOGLOBIN 11.5 g/dL (12.0-16.0); LYMPHOCYTES # (AUTO) 1.2 (1.0-3.2); LYMPHOCYTES % 31.7 % (18.0-39.1); MEAN CORPUSCULAR HEMOGLOBIN 35.1 pg (28-32); MEAN CORPUSCULAR HGB CONC 33.2 g/dL (31-35); MEAN CORPUSCULAR VOLUME 105.5 fL (81-99); MONOCYTES # (AUTO) 0.4 (0.2-0.8); MONOCYTES % 10.8 % (4.4-11.3); NEUTROPHILS # (AUTO) 2.2 (2.1-6.9); NEUTROPHILS % 55.7 % (38.7-80.0); PLATELET COUNT 226 x10e3/uL (140-360); RED BLOOD COUNT 3.28 x10e6/uL (3.6-5.1); RED CELL DISTRIBUTION WIDTH 14.8 % (11.7-14.4)
[2018-08-10 05:23] LABS: INR 0.96; PROTHROMBIN TIME 13.3 seconds (11.9-14.5)
[2018-08-10] MEDS: CEFEPIME 2 GM/NS 0.9% 100 ML 100 ML IV SCH ×3 (05:33→22:05)
[2018-08-10 05:35] LABS: ALANINE AMINOTRANSFERASE 56 IU/L (0-55); ALBUMIN 2.5 g/dL (3.5-5.0); ALBUMIN/GLOBULIN RATIO 0.8 (0.8-2.0); ALKALINE PHOSPHATASE 232 IU/L (40-150); ANION GAP 10.3 mmol/L (8-16); BLOOD UREA NITROGEN 9 mg/dL (7-26); BUN/CREATININE RATIO 19 (6-25); CARBON DIOXIDE 29 mmol/L (22-29); CHLORIDE 103 mmol/L (98-107); CREATININE, SERUM 0.48 mg/dL (0.57-1.11); EST GLOMERULAR FILTRATION RATE > 60 ML/MIN (60-); GLUCOSE 113 mg/dL (74-118); POTASSIUM 3.3 mmol/L (3.5-5.1); SODIUM 139 mmol/L (136-145)
[2018-08-10] MEDS: INSULIN LISPRO 100 UNIT/1 ML 3ML VIAL SQ SCH ×4 (05:37→17:23)
[2018-08-10] MEDS: TOBRAMYCIN 40MG/ML 30ML MDV INH SCH ×2 (07:00→19:25)
[2018-08-10] MEDS: LACTOBACILLUS ACIDOPHILUS CAPSULE PO SCH ×2 (09:00→17:22)
[2018-08-10] MEDS: FAMOTIDINE 20 MG/2 ML VIAL IV SCH ×2 (09:00→17:22)
[2018-08-10] MEDS: INSULIN GLARGINE 100 UNITS/ML VIAL SQ SCH ×2 (09:00→21:25)
[2018-08-10] MEDS: BENZONATATE 100 MG CAP PO SCH ×3 (09:00→21:24)
[2018-08-10] MEDS ORDERED: POTASSIUM CHLORIDE 20 MEQ TAB CR PO STA (10:53)
[2018-08-10] MEDS: NIFEDIPINE CR 30 MG TAB PO SCH (11:46)
[2018-08-10] MEDS: ENOXAPARIN SOD INJ 40 MG/0.4 ML SYR SC SCH (17:23)
--- NOTE | 2018-08-10 17:36 | NUR ---
Follow up: Nutrition Intervention Note RD Recommendation(s) for Physician: -Continue current diet per MD and texture per Speech. -Consider re-weighing pt- within chart (4 lbs, 2 oz is recorded currently, previous weight on 08/07 was 164 lbs) Plan of Care: RD following, monitoring for tolerance and adequacy Nutrition reason for involvement: Follow up RD Assessment 08/10: Follow up: Discussed in rounds, pt has been extubated and passed speech eval. Mechanical soft texture with thin liquids; swallow precautions, speech therapy to follow up with diet tolerance per bedside swallow eval note. Pt is now on ADA with [facility] soft texture per HT and EMR. Pt had CTR of chest- patient had no pulmonary emboli, but did have some new infiltrates in the lungs and some increased secretions in the esophagus. Will continue to monitor to ensure pt is tolerating diet and receiving adequate nutrition. 08/07 Pt was discussed during AM rounds. Failed to wean off the vent. Pt remained sedated, ventilated and intubated. ISADORA Crook turned on TF with Vital HP running at goal. Per RN, pt tolerated TF well so far. Will continue to monitor and follow. 08/05 Chart reviewed. 53yo F, who was admitted for congestion and difficulty expectorating the phlegm. The patient was intubated yesterday afternoon and transferred to the intensive care unit. Visited pt in the room. On vent with IVF @10mL/hr and propofol @4.1mL/hr. No pressor meds ordered. TF with Glucerna running at 40mL/hr. Glucose 158 206 with Solu-medrol and insulin. No family on bedside to provide hx. Received telephone order from Dr. Mesa to change TF order. Communicate TF rec with ISADORA Arreguin. Will continue to monitor and follow. Principal Problems/Diagnoses: 1. Acute respiratory failure. 2. Aspiration pneumonia with severe sepsis, present on admission. 3. Bronchiectasis with acute exacerbation. PMH: T1DM, gastroparesis, GERD GI: Abdomen: Soft, round, soft liquid small stool Skin: no wound noted Labs: (08/10): K 3.3, Creat .48, POC Gluc: 107-186 (08/07) K 2.9 L, creatinine 0.56 L, BG 230 287 H (08/05) K 3.3 L, Glucose 158 206 H Meds: Abx, insulin, pepcid, probiotic, Malnutrition Evaluation (date of eval) The patient does not meet criteria for a specified degree of malnutrition at this time. Will re-evaluate at follow-up as appropriate. Ht: 64in Wt: 152lb; 164.31lb BMI: 26.1kg/m2 IBW: 120lb Nutrition Prescription (Diet Order): ADA, mech soft Estimated Nutritional Needs: Calories: 1242 1380kcal (18-20kcal/kg/d) Weight used : CBW Protein: 90 138g (1.3-2g/kg/d) Weight used: CBW Diet Adequacy: Not meeting calorie needs, Not meeting protein needs- pt was recently extubated. Diet Education Needs Assessment: Diet education indicated, but patient not appropriate for education at this time. Nutrition Care Level: MOD Nutrition Diagnosis: Diagnosis: Inadequate oral intake related to current medical condition (intubated and ventilated) as evidenced by pt requiring EN as main source of nutrition. Goal: Patient will meet 75-100% of estimated needs by follow up Progress: Progressing Interventions: Carb, mech soft modified diet, Recommended Modifications, Collaboration with other providers, Monitoring/Evaluation: -Total energy intake, Total protein intake, Modified diet, Weight change Signed: Yesenia Reza RD, LD _ Follow-up Note RD Recommendation(s) for Physician: - Rec continuous TF with Vital HP @50mL/hr, providing 1200kcal, 105g protein, 1003mL H2O. (Order placed per Dr. Mesa approval) - Free water flushes per MD discretion - Check daily labs, gastric tolerance, weights Plan of Care: RD following, monitoring for tolerance and adequacy, TF rec Nutrition reason for involvement: Follow up RD Assessment 08/07 Pt was discussed during AM rounds. Failed to wean off the vent. Pt remained sedated, ventilated and intubated. ISADORA Crook turned on TF with Vital HP running at goal. Per RN, pt tolerated TF well so far. Will continue to monitor and follow. 08/05 Chart reviewed. 53yo F, who was admitted for congestion and difficulty expectorating the phlegm. The patient was intubated yesterday afternoon and transferred to the intensive care unit. Visited pt in the room. On vent with IVF @10mL/hr and propofol @4.1mL/hr. No pressor meds ordered. TF with Glucerna running at 40mL/hr. Glucose 158 206 with Solu-medrol and insulin. No family on bedside to provide hx. Received telephone order from Dr. Mesa to change TF order. Communicate TF rec with ISADORA Arreguin. Will continue to monitor and follow. Principal Problems/Diagnoses: 1. Acute respiratory failure. 2. Aspiration pneumonia with severe sepsis, present on admission. 3. Bronchiectasis with acute exacerbation. PMH: DM, gastroparesis, GERD GI: OGT present Skin: no wound noted Labs: (08/07) K 2.9 L, creatinine 0.56 L, BG 230 287 H (08/05) K 3.3 L, Glucose 158 206 H Meds: pepcid, probiotic, insulin, abx, propofol (titrate) Ht: 64in Wt: 152lb; 164.31lb BMI: 26.1kg/m2 IBW: 120lb Malnutrition Evaluation (08/05) The patient does not meet criteria for a specified degree of malnutrition at this time. Will re-evaluate at follow-up as appropriate. Nutrition Prescription (Diet Order): Vital HP @50mL/hr Estimated Nutritional Needs: Calories: 1242 1380kcal (18-20kcal/kg/d) Weight used : CBW Protein: 90 138g (1.3-2g/kg/d) Weight used: CBW Diet Adequacy: meeting calorie needs, meeting protein needs Diet Education Needs Assessment: Diet education indicated, but patient not appropriate for education at this time. Nutrition Care Level: mod (new TF) Nutrition Diagnosis: Inadequate oral intake related to current medical condition (intubated and ventilated) as evidenced by pt requiring EN as main source of nutrition. Goal: Patient will meet 75-100% of estimated needs by follow up Progress: Goal met Interventions: Composition, Rate, Route, IVF Monitoring/Evaluation: Total energy intake, Total protein intake, Formula/Solution, IVF, Weight change, Labs, gastric tolerance Signed: Cecile St, MS, RD, LD User: Cecile St DIET Date: 08/05/18 10:30 Type: Nutrition Notes Nutrition Intervention Note RD Recommendation(s) for Physician: - Rec continuous TF with Vital HP @50mL/hr, providing 1200kcal, 105g protein, 1003mL H2O. (Order placed per Dr. Mesa approval) - Free water flushes per MD discretion - Check daily labs, gastric tolerance, weights Plan of Care: RD following, monitoring for tolerance and adequacy, TF rec Nutrition reason for involvement: TF rec RD Assessment 08/05 Chart reviewed. 53yo F, who was admitted for congestion and difficulty expectorating the phlegm. The patient was intubated yesterday afternoon and transferred to the intensive care unit. Visited pt in the room. On vent with IVF @10mL/hr and propofol @4.1mL/hr. No pressor meds ordered. TF with Glucerna running at 40mL/hr. Glucose 158 206 with Solu-medrol and insulin. No family on bedside to provide hx. Received telephone order from Dr. Mesa to change TF order. Communicate TF rec with ISADORA Arreguin. Will continue to monitor and follow. Principal Problems/Diagnoses: 1. Acute respiratory failure. 2. Aspiration pneumonia with severe sepsis, present on admission. 3. Bronchiectasis with acute exacerbation. PMH: DM, gastroparesis, GERD GI: OGT present Skin: no wound noted Labs: (08/05) K 3.3 L, Glucose 158 206 H Meds: Solu-medrol, pepcid, probiotics, propofol, abx, insulin Ht: 64in Wt: 152lb BMI: 26.1kg/m2 IBW: 120lb Malnutrition Evaluation (08/05) The patient does not meet criteria for a specified degree of malnutrition at this time. Will re-evaluate at follow-up as appropriate. Nutrition Prescription (Diet Order): Glucerna @20mL/hr Estimated Nutritional Needs: Calories: 1242 1380kcal (18-20kcal/kg/d) Weight used : CBW Protein: 90 138g (1.3-2g/kg/d) Weight used: CBW Diet Adequacy: Not meeting calorie needs, Not meeting protein needs Diet Education Needs Assessment: Diet education indicated, but patient not appropriate for education at this time. Nutrition Care Level: mod (new TF) Nutrition Diagnosis: Inadequate oral intake related to current medical condition (intubated and ventilated) as evidenced by pt requiring EN as main source of nutrition. Goal: Patient will meet 75-100% of estimated needs by follow up Progress: N/A Interventions: Composition, Rate, Route, IVF Monitoring/Evaluation: Total energy intake, Total protein intake, Formula/Solution, IVF, Weight change, Labs, gastric tolerance Signed: Cecile St, MS, RD, LD
[2018-08-11] VITALS (20 sets, daily range): BP systolic 14–159; BP diastolic 68–86
[2018-08-11] MEDS: GUAIFENESIN/CODEINE 10 ML CUP PO PRN ×5 (01:27→23:55)
[2018-08-11] MEDS: IPRATROPIUM BROMIDE 0.02% 2.5 ML NEB NEB SCH ×6 (03:05→23:35)
[2018-08-11] MEDS: DOXYCYCLINE 100MG/NS 100ML 100 ML IV SCH (05:54)
[2018-08-11 06:16] LABS: BASOPHILS % 0.8 % (0.0-1.0); EOSINOPHILS # (AUTO) 0.1 (0.0-0.4); EOSINOPHILS % 2.5 % (0.0-6.0); HEMATOCRIT 34.3 % (34.2-44.1); HEMOGLOBIN 11.3 g/dL (12.0-16.0); LYMPHOCYTES % 27.5 % (18.0-39.1); MEAN CORPUSCULAR HEMOGLOBIN 34.2 pg (28-32); MEAN CORPUSCULAR HGB CONC 32.9 g/dL (31-35); MEAN CORPUSCULAR VOLUME 103.9 fL (81-99); MONOCYTES # (AUTO) 0.3 (0.2-0.8); MONOCYTES % 8.8 % (4.4-11.3); NEUTROPHILS # (AUTO) 2.2 (2.1-6.9); NEUTROPHILS % 60.1 % (38.7-80.0); PLATELET COUNT 218 x10e3/uL (140-360); RED CELL DISTRIBUTION WIDTH 14.6 % (11.7-14.4)
[2018-08-11 06:36] LABS: ALANINE AMINOTRANSFERASE 56 IU/L (0-55); ALBUMIN 2.7 g/dL (3.5-5.0); ALBUMIN/GLOBULIN RATIO 0.9 (0.8-2.0); ALKALINE PHOSPHATASE 233 IU/L (40-150); ANION GAP 12.8 mmol/L (8-16); BLOOD UREA NITROGEN < 5 mg/dL (7-26); CALCIUM 9.1 mg/dL (8.4-10.2); CARBON DIOXIDE 26 mmol/L (22-29); CHLORIDE 100 mmol/L (98-107); CREATININE, SERUM 0.54 mg/dL (0.57-1.11); EST GLOMERULAR FILTRATION RATE > 60 ML/MIN (60-); GLUCOSE 180 mg/dL (74-118); POTASSIUM 3.8 mmol/L (3.5-5.1); SODIUM 135 mmol/L (136-145)
[2018-08-11 06:37] LABS: BUN/CREATININE RATIO 9 (6-25)
[2018-08-11] MEDS: CEFEPIME 2 GM/NS 0.9% 100 ML 100 ML IV SCH ×3 (07:05→21:38)
[2018-08-11] MEDS: TOBRAMYCIN 40MG/ML 30ML MDV INH SCH ×2 (07:45→19:15)
--- NOTE | 2018-08-11 07:50 | Diagnostic Imaging Report ---
EXAM: CHEST SINGLE (PORTABLE), AP Portable DATE: 08/11/2018 Time stamp on exam: 7:27 AM INDICATION: Cough with shortness of breath COMPARISON: 08/09/2018 FINDINGS: LINES/TUBES: Right IJ central line again noted in appropriate location. Endotracheal tube and nasogastric tube have been withdrawn. LUNGS: Continued slight improvement in the interstitial opacities. PLEURA: No effusions or pneumothorax. HEART AND MEDIASTINUM: Heart is enlarged. BONES AND SOFT TISSUES: No acute findings. IMPRESSION: Improving interstitial opacities. Signed by: Dr. Kaiser Patricia DO on 08/11/2018 7:46 AM
[2018-08-11] MEDS: INSULIN LISPRO 100 UNIT/1 ML 3ML VIAL SQ SCH ×5 (08:09→21:20)
[2018-08-11] MEDS: NIFEDIPINE CR 30 MG TAB PO SCH (09:00)
[2018-08-11] MEDS: INSULIN GLARGINE 100 UNITS/ML VIAL SQ SCH ×2 (09:00→21:37)
[2018-08-11] MEDS: FAMOTIDINE 20 MG/2 ML VIAL IV SCH ×2 (09:08→16:38)
[2018-08-11] MEDS: BENZONATATE 100 MG CAP PO SCH ×3 (09:08→21:00)
[2018-08-11] MEDS: LACTOBACILLUS ACIDOPHILUS CAPSULE PO SCH ×2 (09:08→16:38)
--- NOTE | 2018-08-11 10:00 | NUR ---
Patient assisted to chair and assisting with her am sponge bath being given by me and tolerating well. Family friend, Gabby also at bedside and assisting with hair shampooing while patient is sitting in chair and tolerating well.
--- NOTE | 2018-08-11 14:42 | NUR ---
Chele with Physical Therapy here at bedside to evaluate patient.
--- NOTE | 2018-08-11 15:09 | NUR ---
Patient ambulated in ICU nurses station and tolerated well and now sitting up in chair. Friend, Gabby now at bedside.
[2018-08-11] MEDS: DOXYCYCLINE HYCLATE TABLET 100 MG TAB PO SCH (17:14)
--- NOTE | 2018-08-11 19:20 | NUR ---
Report taken from roly Campos.
[2018-08-11] MEDS ORDERED: METHYLPREDNISOLONE SOD SUCC 40 MG/ML VIAL 1ML IV NR (20:15)
--- NOTE | 2018-08-11 20:20 | NUR ---
Arrived pt from room #190 icu in a wheel chair.asessment done.has wheezing.no rep.distress.no pain voiced.oriented to the unit.iv right ij is patent.nasal cannula 2litre o2 getting.bed locked and in lowest position.phone and call light within reach.instructed to call for assistance as needed.keep monitor the pt.
[2018-08-12] VITALS (8 sets, daily range): BP systolic 112–158; BP diastolic 56–71
--- NOTE | 2018-08-12 03:00 | NUR ---
Ambulates to bath room by stand by assistance.voided.still has cough and wheezing.Robitussin 10 ml given.no pain voiced.
[2018-08-12] MEDS: IPRATROPIUM BROMIDE 0.02% 2.5 ML NEB NEB SCH ×6 (04:05→23:00)
[2018-08-12] MEDS: GUAIFENESIN/CODEINE 10 ML CUP PO PRN (04:27)
[2018-08-12] MEDS: DOXYCYCLINE HYCLATE TABLET 100 MG TAB PO SCH ×2 (05:04→16:45)
[2018-08-12] MEDS: CEFEPIME 2 GM/NS 0.9% 100 ML 100 ML IV SCH ×3 (05:05→21:39)
[2018-08-12 06:31] LABS: BASOPHILS % 0.4 % (0.0-1.0); HEMATOCRIT 35.3 % (34.2-44.1); HEMOGLOBIN 12.5 g/dL (12.0-16.0); LYMPHOCYTES # (AUTO) 0.6 (1.0-3.2); LYMPHOCYTES % 12.9 % (18.0-39.1); MEAN CORPUSCULAR HEMOGLOBIN 37.7 pg (28-32); MEAN CORPUSCULAR HGB CONC 35.4 g/dL (31-35); MEAN CORPUSCULAR VOLUME 106.3 fL (81-99); MONOCYTES # (AUTO) 0.1 (0.2-0.8); MONOCYTES % 2.7 % (4.4-11.3); NEUTROPHILS # (AUTO) 3.8 (2.1-6.9); NEUTROPHILS % 83.8 % (38.7-80.0); PLATELET COUNT 259 x10e3/uL (140-360); RED BLOOD COUNT 3.32 x10e6/uL (3.6-5.1)
[2018-08-12 06:45] LABS: ALANINE AMINOTRANSFERASE 67 IU/L (0-55); ALBUMIN 3.1 g/dL (3.5-5.0); ALBUMIN/GLOBULIN RATIO 0.9 (0.8-2.0); ALKALINE PHOSPHATASE 267 IU/L (40-150); ANION GAP 14.5 mmol/L (8-16); BLOOD UREA NITROGEN 7 mg/dL (7-26); BUN/CREATININE RATIO 12 (6-25); CALCIUM 9.7 mg/dL (8.4-10.2); CARBON DIOXIDE 25 mmol/L (22-29); CHLORIDE 100 mmol/L (98-107); EST GLOMERULAR FILTRATION RATE > 60 ML/MIN (60-); GLUCOSE 299 mg/dL (74-118); POTASSIUM 4.5 mmol/L (3.5-5.1); SODIUM 135 mmol/L (136-145)
--- NOTE | 2018-08-12 06:50 | NUR ---
Report given to oncoming rn.walking rounds done.stable condition.
[2018-08-12] MEDS: TOBRAMYCIN 40MG/ML 30ML MDV INH SCH (07:23)
[2018-08-12] MEDS: NIFEDIPINE CR 30 MG TAB PO SCH (08:17)
[2018-08-12] MEDS: BENZONATATE 100 MG CAP PO SCH ×3 (08:17→21:37)
[2018-08-12] MEDS: LACTOBACILLUS ACIDOPHILUS CAPSULE PO SCH ×2 (08:17→16:45)
[2018-08-12] MEDS: FAMOTIDINE 20 MG/2 ML VIAL IV SCH (08:17)
[2018-08-12] MEDS: INSULIN GLARGINE 100 UNITS/ML VIAL SQ SCH ×2 (08:18→21:38)
[2018-08-12] MEDS: INSULIN LISPRO 100 UNIT/1 ML 3ML VIAL SQ SCH ×4 (08:18→21:38)
--- NOTE | 2018-08-12 12:51 | NUR ---
CASE MANAGEMENT ASSESSMENT Risk Management Director to bedside to discuss plan of care with patient/family. CM/SW role and care transitions discussed. Anticipated discharge plan discussed along with duration of care. CM/SW discussed patients right to make decisions in care. CM/SW work hours given. Patient lives: with her Adriano Admit/Transfer: thru ED Hospital/ER visits since last admit: states she was at [facility] 3 weeks ago POA/Emergency contact: Adriano Armstrong [phone] Current/Previous Home Health: none PCP/Follow-up Care: Dr. Sims - PCP at [facility] [place]; advised pt to follow up with one of his MDs within 5 days of discharge. Pt acknowledged Current/Previous DME: none Medications (referring to index hospitalization or the first time you were in the hospital) a. Were changes made in your medications when you were in the hospital on June 2018? no changes; stated she followed up with her PCP and received new medications from him b. Did you understand the changes? yes c. Were you able to obtain your new medications right away? yes d. Were you able to take your medications like the doctor wanted you to? yes e. Did the hospital give you an accurate, easy to understand list of medications when you left? n/a Scale of 1-10 how comfortable does patient feel with disease management in outpatient settin Other Services: none Employment Status: employed with [employer] Areas of Concerns: pneumonia, COPD Referral Needs: may need home health and home o2; RT to do home o2 eval Education Needs: pneumonia, COPD, medical management IMM/MONTEZ given and signed (if applicable): n/a Goal for discharge: home CM/SW left business card at the bedside with contact information. Name and number was also written on the patients whiteboard. Patient verbalized understanding of discussion. CM will follow-up with ongoing discharge and transition of care needs.
--- NOTE | 2018-08-12 16:28 | NUR ---
Discontinuing skilled PT services since patient is independent in functional mobility, able to ambulate greater than 400 feet with independence. thank you. Addendum: 08/12/18 at 1629 by Chele melendez PT Amended: Links added.
[2018-08-12] MEDS: FAMOTIDINE 20 MG TAB PO SCH (16:45)
[2018-08-12] MEDS ORDERED: ENOXAPARIN SOD INJ 40 MG/0.4 ML SYR SC SCH (17:00)
--- NOTE | 2018-08-12 19:05 | NUR ---
BEDSIDE SHIFT REPORT RECEIVED FROM ISADORA LANE. RECEIVED PT LAYING SEMI FOWLERS IN BED, AAOX3, RR EVEN AND NON-LABORED, RECEIVING NEB TREATMENT. NO S/SX OF DISTRESS NOTED. LEFT PT LAYING SEMI FOWLERS IN BED, BED IN LOW LOCKED POSITION, SIDE RAILS UPX2, CALL LIGHT AND PHONE WITHIN REACH.
--- NOTE | 2018-08-12 21:20 | NUR ---
PT AMBULATING IN [place] WITH AT SIDE. STEADY GAIT NOTED, NO S/SX OF RESPIRATORY DISTRESS NOTED. LEFT PT AMBULATING IN [place] WITH FAMILY.
[2018-08-13] VITALS: BP 139/66
[2018-08-13] MEDS: GUAIFENESIN/CODEINE 10 ML CUP PO PRN ×2 (02:41→08:37)
[2018-08-13] MEDS: IPRATROPIUM BROMIDE 0.02% 2.5 ML NEB NEB SCH ×4 (03:00→14:30)
[2018-08-13 04:00] VITALS: BP 148/66
[2018-08-13] MEDS: CEFEPIME 2 GM/NS 0.9% 100 ML 100 ML IV SCH ×2 (05:28→13:22)
[2018-08-13] MEDS: DOXYCYCLINE HYCLATE TABLET 100 MG TAB PO SCH (05:28)
[2018-08-13] MEDS: INSULIN LISPRO 100 UNIT/1 ML 3ML VIAL SQ SCH ×2 (07:30→12:32)
[2018-08-13 08:30] VITALS: BP 121/72
[2018-08-13 08:33] VITALS: BP 121/72
[2018-08-13] MEDS: INSULIN GLARGINE 100 UNITS/ML VIAL SQ SCH (08:34)
[2018-08-13] MEDS: FAMOTIDINE 20 MG TAB PO SCH (08:34)
[2018-08-13] MEDS: BENZONATATE 100 MG CAP PO SCH ×2 (08:34→13:22)
[2018-08-13] MEDS: LACTOBACILLUS ACIDOPHILUS CAPSULE PO SCH (08:34)
[2018-08-13] MEDS: NIFEDIPINE CR 30 MG TAB PO SCH (08:34)
[2018-08-13 12:27] VITALS: BP 146/66
[2018-08-13] MEDS ORDERED: NIFEDIPINE ER30 M1 PO (14:00)
[2018-08-13] MEDS ORDERED: AZITHROMYCIN250 MG PO (14:01)
--- NOTE | 2018-08-13 14:14 | NUR ---
PER DR. OMALLEY PT OK TO D/C HOME BEFORE DELIVERY OF HOME O2.
--- NOTE | 2018-08-13 14:16 | NUR ---
Spoke with Dr. Zepeda. Gave order to set up home oxygen if pt is agreeable. CM spoke to pt at bedside. She stated to use any company that are in network with her insurance. She signed choice letter for [employer] and [employer]. Signed copy placed in chart. Copy to pt. Referral was faxed to [employer]. P [phone] / F [phone] Notified Kelly, liaison with [place].
--- NOTE | 2018-08-13 14:50 | NUR ---
DISCHARGE INSTRUCTIONS AND PRESCRIPTIONS GIVEN. PT VERBALIZED UNDERSTANDING. PT REFUSED TO WAIT FOR HOME O2 APPROVAL OR DELIVERY. PER DR. OMALLEY PT OK TO D/C HOME WITHOUT O2 DELIVERY TO HOSPITAL. PT INSTRUCTED TO NOT OVEREXERT HERSELF. PT VERBALIZED UNDERSTANDING. RIGHT TRIPLE LUMEN IJ D/C CATHETER TIP INTACT AND PRESSURE DRESSING APPLIED. NO BLEEDING NOTED. LEFT AC IV ALSO D/C. PT LEFT IN STABLE CONDITION. DRIVING PT HOME. CASE MANAGEMENT TO F/U ON OXYGEN APPROVAL OR DENIAL.
--- NOTE | 2018-08-13 16:48 | NUR ---
Pt's home oxygen is dispatched to be delivered to her house today.
--- NOTE | 2018-08-13 20:52 | Discharge Summary ---
PRIMARY CARE DOCTOR: Cam Sims MD. FINAL DIAGNOSIS: Acute respiratory failure secondary to atypical pneumonia. SECONDARY DIAGNOSES: 1. Diabetes. 2. Hypertension. 3. Hypothyroidism. CONSULTANTS: 1. Andrey Mesa MD, Pulmonology. 2. Jose Medellin MD, Infectious Disease. PROCEDURES/STUDIES PERFORMED: 1. Chest CT. 2. Intubation, extubation. 3. Right IJ central line placement. HISTORY: Per H and P. HOSPITAL COURSE: The patient was admitted. IV antibiotic was started. Subsequently, we had to intubate the patient for respiratory failure. It took a couple of days before the patient was extubated. Steroids was given per ID recommendation. IV doxycycline was added, so the patient is getting better. At this time, we will hold off. Her beta-gustavo given she is prone to a respiratory failure. The patient stated she is on lisinopril at home possibly as an outpatient and she considered starting losartan given there is a possibility of dry cough from lisinopril. For the time being, the patient will be on nifedipine for blood pressure control until she is better and follow up with her primary care doctor. I have updated her at the bedside. The patient was seen and examined today. It took 33 minutes total to discharge this patient. I have also updated the servicenow administrator developer and also the primary care doctor. CONDITION ON DISCHARGE: Improved. DISCHARGE MEDICATIONS: Please see medication reconciliation form. Yiching MD DANA Edwards/NADINE /[id number] cc: [facility]
== END 2018-08-13 14:40 | disposition home or self-care (01) | DRG 870 ==
LOC: ER 06:51 → ERHOLD 10:06 → IMCU 13:27 → OBSVTOIN 08-04 14:17 → ICU 08-04 18:08 → MED/SURG 08-11 20:11
PROVIDERS: ADMIT Internal Medicine; ATTEND Internal Medicine
PROC: 5A1955Z Respiratory Ventilation, Greater than 96 Consecutive Hours (ICD-10-PCS; 2018-08-04)
PROC: 0BH17EZ Insertion of Endotracheal Airway into Trachea, Via Natural or Artificial Opening (ICD-10-PCS; 2018-08-04)
PROC: 02HV33Z Insertion of Infusion Device into Superior Vena Cava, Percutaneous Approach (ICD-10-PCS; principal; 2018-08-08)
DX: A41.9 Sepsis, unspecified organism (principal); J69.0 Pneumonitis due to inhalation of food and vomit; J96.01 Acute respiratory failure with hypoxia; J44.1 Chronic obstructive pulmonary disease with (acute) exacerbation; E10.649 Type 1 diabetes mellitus with hypoglycemia without coma; K31.84 Gastroparesis; Z79.4 Long term (current) use of insulin; K21.9 Gastro-esophageal reflux disease without esophagitis; R65.20 Severe sepsis without septic shock; E10.43 Type 1 diabetes mellitus with diabetic autonomic (poly)neuropathy; E87.6 Hypokalemia; R45.1 Restlessness and agitation
CPT/HCPCS: 31500; 36415; 36600; 71045; 71046; 71250; 71260; 80048; 80053; 80076; 81001; 82550; 82553; 82805; 82948; 83036; 83605; 83735; 83880; 84443; 84484; 85025; 85610; 87040; 87070; 87086; 87205; 87400; 87449; 93306; 94002; 94003; 94640; 96372; 97139; 99284; C1751; G0378; J0456; J0696; J1630; J1650; J1815; J1940; J2001; J2060; J2250; J2920; J2930; J3260; J3475; J3480; J7030; J7050; Q9967

== ENCOUNTER → 2022-06-21 | Outpatient (CLI) | payer OTHER ==
[~2022-06-21] MED LIST changes: +ASPIRIN CHEW81 MG PO; +AZITHROMYCIN250 MG PO; +CORLANOR PO; +LORATADINE10 MG PO; +NIFEDIPINE ER30 M1 PO; +PROAIR HFA INH8.5 GM INH; +SYMBICORT 16010.2 GM; +TENORMIN50 MG PO
== END ==
LOC: US 09:03
PROVIDERS: ATTEND Family Medicine
DX: Z12.31 Encounter for screening mammogram for malignant neoplasm of breast (principal); R94.5 Abnormal results of liver function studies
CPT/HCPCS: 76700; 77067

== ENCOUNTER 2022-10-25 11:36 | Emergency (ER) | payer OTHER ==
[~2022-10-25] VITALS: Ht 162.6 cm; Wt 67.6 kg
[2022-10-25 12:13] LABS: BASOPHILS # (AUTO) 0.1 (0.0-0.1); BASOPHILS % 0.5 % (0.0-1.0); EOSINOPHILS # (AUTO) 0.1 (0.0-0.4); EOSINOPHILS % 0.6 % (0.0-6.0); HEMATOCRIT 23.1 % (34.2-44.1); HEMOGLOBIN 7.6 g/dL (12.0-16.0); LYMPHOCYTES # (AUTO) 1.7 (1.0-3.2); LYMPHOCYTES % 14.9 % (18.0-39.1); MEAN CORPUSCULAR HEMOGLOBIN 35.2 pg (28-32); MEAN CORPUSCULAR HGB CONC 32.9 g/dL (31-35); MEAN CORPUSCULAR VOLUME 106.9 fL (81-99); MONOCYTES # (AUTO) 0.8 (0.2-0.8); MONOCYTES % 6.9 % (4.4-11.3); NEUTROPHILS # (AUTO) 8.8 (2.1-6.9); NEUTROPHILS % 76.8 % (38.7-80.0); PLATELET COUNT 273 x10e3/uL (140-360); RED BLOOD COUNT 2.16 x10e6/uL (3.6-5.1); RED CELL DISTRIBUTION WIDTH 23.3 % (11.7-14.4)
[2022-10-25] MEDS ORDERED: POTASSIUM CHLORIDE 20 MEQ TAB CR PO ONE (12:15)
[2022-10-25 12:17] LABS: INR 1.57; PROTHROMBIN TIME 19.6 seconds (11.9-14.5)
[2022-10-25 12:29] LABS: ALANINE AMINOTRANSFERASE 11 IU/L (0-55); ALBUMIN 1.9 g/dL (3.5-5.0); ALBUMIN/GLOBULIN RATIO 0.4 (0.8-2.0); ALKALINE PHOSPHATASE 121 IU/L (40-150); ANION GAP 15.2 mmol/L (8-16); BLOOD UREA NITROGEN < 5 mg/dL (7-26); CALCIUM 7.9 mg/dL (8.4-10.2); CARBON DIOXIDE 36 mmol/L (22-29); CHLORIDE 82 mmol/L (98-107); CREATININE, SERUM 0.96 mg/dL (0.57-1.11); GLUCOSE 195 mg/dL (74-118); SODIUM 131 mmol/L (136-145)
[2022-10-25 12:40] LABS: BUN/CREATININE RATIO 5 (6-25)
[2022-10-25 12:41] LABS: POTASSIUM 2.2 mmol/L (3.5-5.1)
[2022-10-25] MEDS ORDERED: POTASSIUM CHLORIDE 20 MEQ TAB CR PO STA (12:41)
[2022-10-25] MEDS ORDERED: POTASSIUM CHLORIDE 20MEQ/100ML 200 ML IV ONE (12:45)
[2022-10-25] MEDS ORDERED: SODIUM CHLORIDE 0.9% 250ML 250 ML ONE (12:56)
[2022-10-25 13:00] VITALS: O2SAT 95
[2022-10-25] MEDS ORDERED: IOPAMIDOL 370 MG/ML 100 ML INFUS..BTL INJ ONE (13:10)
[2022-10-25] MEDS ORDERED: SODIUM CHLORIDE 0.9% 250ML 250 ML IV ONE (13:15)
== END 2022-10-25 15:01 | disposition other institution (70) ==
LOC: ER 12:04
DX: D64.9 Anemia, unspecified (principal); K74.69 Other cirrhosis of liver; R11.2 Nausea with vomiting, unspecified; F10.10 Alcohol abuse, uncomplicated; E87.6 Hypokalemia; I10 Essential (primary) hypertension; E03.9 Hypothyroidism, unspecified; K21.9 Gastro-esophageal reflux disease without esophagitis; Z20.822 Contact with and (suspected) exposure to COVID-19
CPT/HCPCS: 36415; 71045; 74177; 80053; 83735; 85025; 85610; 86850; 86900; 86920; 93005; 99284; J3480; J7050; Q9967; U0002

== ENCOUNTER → 2023-04-07 | Outpatient (REF) | payer OTHER | LOC: WCC 10:17 | PROVIDERS: ATTEND Internal Medicine Infectious Disease | DX: L89.312 Pressure ulcer of right buttock, stage 2 (principal); L89.322 Pressure ulcer of left buttock, stage 2 ==